=== PATIENT | female | born 1940 | race Caucasian/White ===

== ENCOUNTER 2018-01-30 13:29 | Emergency (ER) | payer MEDICARE, SELFPAY ==
--- NOTE | 2018-01-30 13:40 | ED.WEAKNESS ---
HPI - Weakness General Chief complaint: Weakness Stated complaint: Weakness Time Seen by Provider: 01/30/18 13:38 Source: patient, family, EMS and RN notes reviewed Mode of arrival: EMS Limitations: no limitations History of Present Illness HPI Narrative: Patient is a 70-year-old female presenting with increased increase in falls. She apparently fell twice yesterday and has increased weakness today. Today she said she lowered herself to the ground yesterday she did fall and hurt her right hip but she has been ambulatory. She has is a very nice cane which she refuses to use. She also has a Life Alert button which she also refuses to use. She is actually quite good spirits. She is supposed to have a sebaceous cyst removed from her left breast today infecting couple of hours. She denies any fever or chills. MD Complaint: generalized weakness Related Data Home Medications Medication Instructions Recorded Confirmed hydrochlorothiazide 50 mg PO QDAY #0 07/24/16 01/30/18 cholecalciferol (vitamin D3) 5,000 unit PO DAILY 01/22/18 01/30/18 [Vitamin D3] doxepin 25 mg PO BEDTIME 01/22/18 01/30/18 hydrocodone-acetaminophen 1 - 2 tab PO DAILY PRN 01/22/18 01/30/18 omeprazole 20 mg PO DAILY 01/22/18 01/30/18 sucralfate 1 g PO QID 01/22/18 01/30/18 fluticasone 1 spray INTRANASAL DAILY 01/30/18 01/30/18 latanoprost 1 drp OPHTHALMIC (EYE) BEDTIME 01/30/18 01/30/18 levothyroxine 100 mcg PO DAILY 01/30/18 01/30/18 meclizine 25 mg PO Q8H PRN 01/30/18 01/30/18 meloxicam 1 tab PO DAILY 01/30/18 01/30/18 mirtazapine 1 tab PO BEDTIME 01/30/18 01/30/18 ondansetron HCl 8 mg PO Q8H PRN 01/30/18 01/30/18 trazodone 100 mg PO BEDTIME PRN 01/30/18 01/30/18 Allergies Allergy/AdvReac Type Severity Reaction Status Date / Time No Known Drug Allergies Allergy Verified 01/30/18 16:08 Review of Systems Review of Systems All systems reviewed & are unremarkable except as noted in HPI and below Constitutional Denies chills, Reports fatigue, Denies fever(s), Reports frequent falls, Denies lethargy and Denies weakness Cardiovascular Denies chest pain, Denies irregular heart rhythm, Denies lightheadedness, Denies palpitations, Denies dyspnea, Denies dyspnea on exertion and Denies orthopnea Respiratory Denies cough, Denies dyspnea, Denies dyspnea on exertion and Denies wheezing Gastrointestinal Gastrointestinal: Denies abdominal pain, Denies change in bowel habits, Denies diarrhea, Denies nausea and Denies vomiting Genitourinary Denies hematuria, Denies flank pain, Denies urinary incontinence and Denies urinary urgency Musculoskeletal Reports system reviewed and no additional complaints, except as docu, Reports as per HPI, Denies back pain, Denies muscle weakness, Denies numbness and Denies tingling Neurologic Reports frequent falls, Denies numbness, Denies tingling and Denies weakness Endocrine Reports fatigue and Denies palpitations Allergic/Immunologic Denies wheezing PFSH Medical History Anxiety (Acute) Bakers cyst (Acute) Bruises easily (Acute) History of UTI (Acute) Hypothyroid (Acute) Impaired vision (Acute) Spinal stenosis (Acute) Surgical History History of colonoscopy (Acute) History of esophagogastroduodenoscopy (EGD) (Acute) Status post breast lumpectomy Status post hysterectomy with oophorectomy Family History Sister Age: 75 Osteoporosis Social History household members: none Smoking Status: Never smoker alcohol intake: current Exam Initial Vital Signs Initial Vital Signs: Vital Signs Temperature 97.8 F 01/30/18 13:56 Pulse Rate 84 01/30/18 13:56 Respiratory Rate 15 01/30/18 13:56 Blood Pressure 145/69 H 01/30/18 13:56 Pulse Oximetry 94 01/30/18 13:56 Const General: cooperative and healthy appearing Nutritional Appearance: average body habitus Orientation: alert, awake and oriented x3 HENMT Head: normal to inspection, normocephalic and atraumatic Ears: hearing grossly normal bilaterally Nose: external nose normal Face and sinus: normal facial exam Neck Neck: full ROM and no meningeal signs Chest Breast inspection: abnormal inspection of the breast (Sebaceous cyst noted on the left breast) Resp Effort & Inspection: normal respiratory effort, able to speak in complete sentences, no respiratory distress and no use of accessory muscles Auscultation: clear to auscultation bilaterally, no rales, no rhonchi and no wheezes Cardio Rate: regular rate Rhythm: regular rhythm Heart Sounds: no click, no gallops, no murmurs and no rubs Pulses: normal peripheral pulses GI Inspection: non-distended Palpation: soft, no hepatosplenomegaly, No guarding, No pulsatile mass and No tender Auscultation: normal bowel sounds Back/Spine/Pelvis Back: No CVA tenderness Cervical Spine: cervical ROM normal and No pain with cervical ROM Thoracic/Lumbar Spine: thoracic and lumbar spine normal to inspection Extrem Right upper extremity: normal to inspection Left upper extremity: normal to inspection Right lower extremity: normal to inspection, normal capillary refill and hip/thigh Details: tenderness Location: of the hip Location: laterally; no ecchymosis and no crepitus; no cyanosis, no edema and joint enlargement noted Left lower extremity: normal to inspection MDM - Weakness Lab Data Result diagrams: 01/30/18 14:10 01/30/18 14:10 Lab Results 01/30/18 01/30/18 Range/Units 14:10 14:10 WBC 11.3 H (4.5-11.0) X10^3/uL RBC 4.29 (4.0-5.2) X10^6/uL Hgb 13.8 (12.0-16.0) g/dL Hct 40.3 (36-46) % MCV 94.1 (80-100) fL MCH 32.2 (26-34) PG MCHC 34.2 (30-36) % RDW 13.7 (11.6-14.8) % Plt Count 290 (150-400) X10^3/uL Neut % (Auto) 84.4 H (50-75) % Lymph % (Auto) 8.0 L (25-40) % Cache % (Auto) 6.7 (3-14) % Eos % (Auto) 0.3 L (2-4) % Baso % (Auto) 0.6 (0-2) % Neut # (Auto) 9500 H (2535-1101) /uL Sodium 136 L (137-145) mmol/L Potassium 3.3 L (3.4-5.1) mmol/L Chloride 94 L (98-107) mmol/L Carbon Dioxide 29 (22-32) mmol/L BUN 24 H (7-17) mg/dL Creatinine 0.80 (0.52-1.04) mg/dL Estimated GFR > 60.0 (>60) mL/min BUN/Creatinine Ratio 30.0 H (6-22) Glucose 101 (80-110) mg/dL Calcium 9.8 (8.4-10.2) mg/dL Total Bilirubin 0.9 (0.2-1.3) mg/dL AST 89 H (14-36) IU/L ALT 52 (9-52) IU/L Alkaline Phosphatase 64 (38-126) U/L Total Protein 7.7 (6.3-8.2) g/dL Albumin 4.4 (3.5-5.0) g/dL Globulin 3.3 (1.7-4.1) g/dL Albumin/Globulin Ratio 1.3 (1.0-2.8) Imaging Data Right hip x-ray: Radiologist's impression: PROCEDURE: XR HIP W PEL IF DONE RT 2V INDICATIONS: fall yesterday pain TECHNIQUE: AP pelvis with lateral view(s) of the right hip(s). COMPARISON: [facility], , PELVIS 1 OR 2 VIEWS, 03/18/2008, 12:30. FINDINGS: Bones: No fractures or dislocations. Pelvic ring appears intact. No suspicious bony lesions. Bilateral degenerative hip joint space narrowing is present. Scoliotic curvature is noted in the lower lumbar spine. Soft tissues: The visualized bowel gas pattern is normal. No suspicious soft tissue calcifications. IMPRESSION: Degenerative changes. No visualized acute fracture or dislocation. However, if clinical concern and/or pain persist, short interval imaging followup in 7-10 days is recommended, as occult injury cannot be definitively excluded. Dictated by: Kimberly Huff M.D. on 01/30/2018 at 14:11 MDM Narrative Medical decision making narrative: Arrangements have been made so that patient can go to the OR to have her sebaceous cyst removed as planned. Electrolytes are slightly low. She will likely be getting IV fluids in the OR. No sign of severe infection. Discharge Plan Departure Patient Disposition: Home, Self-Care Clinical Impression: Fall as cause of accidental injury at home as place of occurrence Discharge Date/Time: 01/30/18 15:55 Interventions: ED Discharge Assessment Last Done: 01/30/18 15:50 Instructions: How to Prevent Falls Activity Restrictions/Additional Instructions: *You have been diagnosed with falls *What to do: Use cane at all times, if you should fall and not able to get up =PUSH YOUR Life Alert button *Continue to take medications as directed *Follow up with your primary care provider in 2-3 days *Return to ER if you should have any new, worsening or concerning symptoms Prescriptions: No Action hydrochlorothiazide 50 MG tablet 50 mg PO QDAY Qty: 0 RF: 0 doxepin 25 mg Capsule 25 mg PO BEDTIME RF: 0 hydrocodone-acetaminophen 5-325 mg Tablet 1 - 2 tab PO DAILY PRN (Reason: Pain (Scale Score 1-3)) RF: 0 sucralfate 1 gram Tablet 1 g PO QID RF: 0 omeprazole 20 mg Capsule,Delayed Release(Dr/Ec) 20 mg PO DAILY RF: 0 cholecalciferol (vitamin D3) [Vitamin D3] 5,000 unit Tablet 5,000 unit PO DAILY RF: 0 ondansetron HCl 8 mg tablet 8 mg PO Q8H PRN (Reason: Nausea) RF: 0 meclizine 25 mg Tablet 25 mg PO Q8H PRN (Reason: Dizziness) RF: 0 latanoprost 0.005 % drops 1 drp ophthalmic (eye) BEDTIME RF: 0 trazodone 50 mg tablet 100 mg PO BEDTIME PRN (Reason: Sleep) RF: 0 meloxicam 7.5 mg tablet 1 tab PO DAILY RF: 0 levothyroxine 100 mcg tablet 100 mcg PO DAILY RF: 0 mirtazapine 30 mg tablet 1 tab PO BEDTIME RF: 0 fluticasone 50 mcg/actuation spray,suspension 1 spray Intranasal DAILY RF: 0 Referrals: Easton Torres MD [Primary Care Provider] -
[2018-01-30 13:56] VITALS: BP 145/69; PULSE 84; RESP 15; TEMP 36.6; O2SAT 94; BMI 32.8
[2018-01-30 14:30] LABS: Alanine Aminotransferase 52 IU/L (9-52); Albumin 4.4 g/dL (3.5-5.0); Albumin Globulin Ratio 1.3 (1.0-2.8); Alkaline Phosphatase 64 U/L (38-126); Aspartate Aminotransferase 89 IU/L (14-36); Bilirubin Total 0.9 mg/dL (0.2-1.3); Blood Urea Nitrogen 24 mg/dL (7-17); Calcium 9.8 mg/dL (8.4-10.2); Carbon Dioxide 29 mmol/L (22-32); Chloride 94 mmol/L (98-107); Estimated Glomerular Filt Rate > 60.0 mL/min (>60); Globulin 3.3 g/dL (1.7-4.1); Glucose 101 mg/dL (80-110); HEMOLYSIS < 15 (0-50); Potassium 3.3 mmol/L (3.4-5.1); Sodium 136 mmol/L (137-145); Total Protein 7.7 g/dL (6.3-8.2)
[2018-01-30 14:34] LABS: Add Manual Diff / Slide Review NO; Basophils Percent Auto 0.6 % (0-2); Eosinophils Percent Auto 0.3 % (2-4); Hematocrit 40.3 % (36-46); Hemoglobin 13.8 g/dL (12.0-16.0); Mean Corpuscular HGB Conc 34.2 % (30-36); Mean Corpuscular Hemoglobin 32.2 PG (26-34); Mean Corpuscular Volume 94.1 fL (80-100); Monocytes Percent Auto 6.7 % (3-14); Neutrophils Absolute Auto 9500 /uL (3000-5900); Neutrophils Percent Auto 84.4 % (50-75); Platelet Count 290 X10^3/uL (150-400); Red Blood Cell Count 4.29 X10^6/uL (4.0-5.2); Red Cell Distribution Width 13.7 % (11.6-14.8); White Blood Cell Count 11.3 X10^3/uL (4.5-11.0)
[2018-01-30 15:07] VITALS: BP 106/90; PULSE 78; RESP 15; O2SAT 95
[2018-01-30 15:50] VITALS: BP 136/65; PULSE 87; RESP 15; O2SAT 97
== END 2018-01-30 15:55 | disposition home or self-care (01) ==
PROVIDERS: Emergency Provider Emergency Medicine; PCP Family Medicine
DX: R53.1 Weakness (principal)
CPT/HCPCS: 36591; 73502; 80053; 85025; 93005; 99282

== ENCOUNTER 2018-01-31 10:22 | Inpatient (IN) | payer MEDICARE, SELFPAY ==
[2018-01-22 17:11] VITALS: BMI 32.1
[2018-01-30] VITALS (13 sets, daily range): BP systolic 123–172; BP diastolic 67–90; PULSE 81–91; RESP 12–20; TEMP 36.3–37.4; O2SAT 94–99; BMI 32.1
--- NOTE | 2018-01-30 | PATH_ITS ---
[facility] Accession Number: [id number] . 01 Material submitted: . LEFT BREAST CYST . 01 Clinical history: . HX OF LEFT BREAST CANCER AND RADIATION . 02 Diagnosis: Left Breast Cyst, Excision: Skin with no significant diagnostic abnormality. Submucosal fibrous tissue with patchy ossification and associated abscess. Changes consistent with previous instrumentation are present. Foreign body material present. Negative for atypia or malignancy; negative for atypical epithelial cells by immunohistochemistry studies. . . [facility]/02/06/2018 . 02 Electronically signed: . Myla Lozano MD, Pathologist NPI- [id number] . 01 Gross description: . Received in formalin, labeled left breast cyst, is an unoriented piece of frazier-yellow firm adipose tissue (10.5 x 5.5 x 3.2 cm) with overlying skin (6.5 x 3.9 cm). The skin is irregularly firm and ulcerated (1.2 x 1.1 cm) located 1.2 cm from the closest peripheral resection margin. The underlying tissue is fatty and focally hard and mineralized. The resection margin is inked black. Four bisected full thickness sections submitted. ([id number]) /[facility] . 02 Microscopic: . A. An immunohistochemical stain was performed on block A5 to evaluate for CHAPARRITA, and is negative. . The rare atypical stromal cells are immunonegative for CHAPARRITA, consistent with a reactive, non-epithelial origin. . * This test was developed and its performance characteristics determined by [facility]. It has not been cleared or approved by the U.S. Food and Drug Administration. The FDA has determined that such clearance or approval is not necessary. This test is used for clinical purposes. It should not be regarded as investigational or for research. . 02 Pathologist provided ICD-10: Z85.3 . 02 CPT . 161125, N70325 Performed at: 01 [facility] [address] [place] [address], [place], [place] [id number] MD Garfield Sanchez MD Phone: [phone] Performed at: 02 [facility] [place] [address] [place], [place] [id number] MD Mich Rodrigues MD Phone: [phone]
[2018-01-30] MEDS: LACTATED RINGERS 1,000 ML 200 ML IV (16:36)
--- NOTE | 2018-01-30 18:26 | PM.PREOP ---
Pre-operative Note Interval Note Pre-op Check: History & Physical Reviewed by Physician and Exam Performed H&P completed within 30 days and has changed as indicated here:: Fell yesterday and has back pain across her lower back. She is known to have chronic back pain. She also has developed redness and drainage around the sebaceous cyst in the left breast. She is desperate to have it removed. I told her that I probably could not close it. Because she 8 lunch we have had to wait 6 hr before proceeding. No other changes.
[2018-01-30] MEDS: CEFAZOLIN 2 GM/100 ML FROZ.PIGGY IV (18:40)
[2018-01-30] MEDS: MIDAZOLAM 2 MG/2 ML VIAL IV ×2 (19:43→19:48)
--- NOTE | 2018-01-30 19:59 | P.OP_ITS ---
Operative Date/Time/Diagnoses - Date of procedure: 01/30/18 Time of procedure: 19:54 Pre-op diagnosis: Large inflamed sebaceous cyst chronic left breast. History of breast cancer Post-op diagnosis: same Procedure & Clinicians Procedure: Removal of this very large inflamed cyst with closure over drain.( lumpectomy) Same procedure as scheduled: Yes Indications: Large neglected cyst on the breast. Skin has become inflamed at the edge of the opening. Surgeon: Carlin Mclean Click Yes if Unassisted: Yes Anesthesia Type: General Operative Notes Findings: Very large cyst with an extension inferiorly that led deep to the breast almost to the muscle chest wall Closure Type: primary (Over a drain) Specimen(s): other (Large cyst) Implants & Drains: 19 mm Darrick Estimated Blood Loss (mL): 15 Blood products transfused: none Procedure in detail: The patient was placed supine on the operating table underwent general LMA anesthesia. She was prepped and draped in the usual fashion using Betadine. An incision was made around this very large inflamed cyst in normal appearing tissue. Was carried deep to the cyst which was quite significant. In the inferior aspect of this wound the cyst cavity actually dive very deep almost to the chest wall. All of this was excised and submitted. Hemostasis was achieved with cautery and 3 0 Polysorb suture ligatures. The wound was copiously irrigated. I loosely closed the skin using large vertical mattress nylon sutures over a Darrick drain which was left in the deep section of this biopsy cavity. It was brought out through the wound. This was done because the patient is incapable managing the wound and lives alone. While we hope to find a way to place her or get assistance, there is no acute that that would happen this is a risky procedure because of the inflammation but I think stands probably a 3/4 chance of succeeding. We will continue antibiotics postop. A dressing was applied the patient tolerated the procedure well. She is awakened and taken to the recovery area in good condition. Complications: none Condition: stable Disposition: PACU
--- NOTE | 2018-01-30 21:17 | PC.NURSE ---
post op pt to AC from PACU around 1999. VSS PT alert and oriented. post left breast cyst removal. Surgical dressing C,D,I with NAYELY drain compressed. Breast binder placed at bedside by OR nurses. Pt able to void to bedpan. Reports recent falls at home and was brought into ER today after family found her down unconscious. IVF infusing per orders. pt denies pain/discomfort. tolerating jello and water and refusing want for further PO intake. Bed alarm on and call light encouraged for needs.
[2018-01-30] MEDS: DEXTROSE 5%-0.45% NS 1,000 ML 125 ML IV (21:38)
[2018-01-30] MEDS: GABAPENTIN 300 MG CAPSULE PO (21:39)
[2018-01-30] MEDS: LATANOPROST 0.005% OPHTH 2.5 ML 1 DROPS EYE-BOTH (21:40)
[2018-01-30] MEDS: DOXEPIN 25 MG CAPSULE PO (21:40)
[2018-01-30] MEDS: MIRTAZAPINE 15 MG TABLET 30 MG PO (21:41)
[2018-01-31] VITALS (10 sets, daily range): BP systolic 106–147; BP diastolic 59–82; PULSE 75–89; RESP 16–18; TEMP 35.8–36.7; O2SAT 93–98
--- NOTE | 2018-01-31 | DI.MRI.S_ITS ---
PROCEDURE: MR HIP RT WO CON INDICATIONS: Right hip/groin pain post fall TECHNIQUE: Noncontrast coronal T1 spin echo and STIR through the bony pelvis. Coronal and axial T2 fast spin echo with fat saturation, sagittal T1 spin echo, and oblique axial T2 fast spin echo with fat saturation through the hip. COMPARISON: [facility], CR, XR HIP W PEL IF DONE RT 2V, 01/30/2018, 13:23. [facility], CT, ABDOMEN/PELVIS WITH CONTRAST, 10/10/2016, 11:16. FINDINGS: Image quality: Diagnostic. Bones and joints: There is no acute fracture, dislocation, suspicious osseous lesion, or evidence of avascular necrosis involving the right hip. Marrow edema is evident, however, involving the superior pubic ramus with an associated nondisplaced fracture evident. A similar appearance is noted involving the inferior pubic ramus, as well. There is no widening of the pubis symphysis. Edema is evident within the adjacent soft tissues. There also is edema evident involving the right aspect of the sacral ala with probable microtrabecular fracture lines present. There mild degenerative changes of the right hip. Degenerative changes of the included lower lumbar spine, sacroiliac joints, and left hip are noted. There is a small right hip joint effusion. Tendons and ligaments: There is slight increased signal identified involving the distal gluteus medius and gluteus minimus tendons without significant tearing evident. Fluid is contained within the greater trochanteric bursa. The distal iliopsoas tendons are intact. The proximal hamstrings tendons demonstrate slight increased signal. There is diffuse muscle edema identified involving all of the adductor muscles. There also appears to be edema involving the right piriformis muscles and the distal margins of the gluteus medius and gluteus minimus muscles. The ligamentum teres appears intact where visualized. Labrum: Evaluation of the acetabular labrum is difficult without intra-articular contrast. However, there is increased signal identified at the labral cartilaginous junction of the superior labrum, suggesting a small anterosuperior labral tear. Soft tissues: Visualized muscles demonstrate normal bulk and internal signal. Quadratus femoris muscle demonstrates no internal edema to suggest ischiofemoral impingement. The proximal sciatic neurovascular bundle appears normal adjacent to the hamstring tendons. No free pelvic fluid. Bladder wall thickness is normal. Genitourinary structures and bowel loops appear normal where visualized. IMPRESSION: 1. No acute right hip fracture. 2. Nondisplaced superior and inferior right pubic rami fractures. 3. Right sacral insufficiency fracture. 4. Adductor muscle edema is felt to be reactive. 5. Small anterosuperior right acetabular labral tear. 6. Small right hip joint effusion. 7. Mild distal gluteus medius and gluteus minimus tendinopathy. Moderate amount of fluid is contained within the greater trochanteric bursa. Please correlate clinically for possible bursitis. 8. Mild proximal right hamstrings tendinopathy. Dictated by: Cory Armendariz M.D. on 01/31/2018 at 14:12 Approved by: Cory Armendariz M.D. on 01/31/2018 at 14:24
--- NOTE | 2018-01-31 | DI.RAD.S_ITS ---
PROCEDURE: XR LUMBAR SPINE 2-3V INDICATIONS: 78 year-old female with chronic low back pain, with increased low back pain after recent fall. TECHNIQUE: 3 views of the lumbar spine were acquired. COMPARISON: [facility], , L-SPINE WITHOUT CONTRAST, 12/29/2015, 10:54. [facility], CR, SPINE LUMB MIN 4VW, 12/20/2015, 12:18. [facility], LEANDRO, SPINE LUMB MIN 4VW, 04/06/2014, 11:01. FINDINGS: Bones: 6 met-flw-vqoiyrz vertebrae are present, labeled as T12-L5 to be concordant with sleeping on comparison lumbar spine MRI. There is multilevel lumbar spine disc degeneration as before, as well as levoscoliosis. There is grade 1 L5-S1 spondylolisthesis from bilateral L5 pars defects is better seen on MRI. No vertebral body compression fractures. No suspicious bony lesions. Soft tissues: Overlying bowel gas pattern is normal. No suspicious soft tissue calcifications. IMPRESSION: 1. No acute bony injury to the lumbar spine. 2. Transitional lumbar spine anatomy, with 6 non-rib bearing lumbar type vertebrae, labeled as T12 through L5 to be concordant with comparison MRI labeling. If definitive spinal labeling is needed in the future, recommend correlation with thoracic spine radiographs to count down from T1. 3. Multilevel lumbar spine disc degeneration, along with levoscoliosis. 4. Grade 1 L5-S1 spondylolisthesis from bilateral L5 pars defects. Dictated by: Jefferson Bertrand M.D. on 01/31/2018 at 11:11 Approved by: Jefferson Bertrand M.D. on 01/31/2018 at 11:16
[2018-01-31] MEDS: TRAZODONE 100 MG TABLET PO ×2 (00:06→22:50)
[2018-01-31] MEDS: CEFAZOLIN 2 GM/100 ML FROZ.PIGGY IV ×3 (03:23→20:49)
[2018-01-31] MEDS: DEXTROSE 5%-0.45% NS 1,000 ML 125 ML IV ×2 (05:52→16:00)
[2018-01-31 06:28] LABS: Add Manual Diff / Slide Review NO; Basophils Percent Auto 0.8 % (0-2); Eosinophils Percent Auto 2.9 % (2-4); Hematocrit 36.7 % (36-46); Hemoglobin 12.6 g/dL (12.0-16.0); Mean Corpuscular HGB Conc 34.2 % (30-36); Mean Corpuscular Hemoglobin 32.4 PG (26-34); Mean Corpuscular Volume 94.7 fL (80-100); Monocytes Percent Auto 8.1 % (3-14); Neutrophils Absolute Auto 7100 /uL (3000-5900); Neutrophils Percent Auto 78.2 % (50-75); Platelet Count 231 X10^3/uL (150-400); Red Blood Cell Count 3.88 X10^6/uL (4.0-5.2); Red Cell Distribution Width 13.6 % (11.6-14.8); White Blood Cell Count 9.1 X10^3/uL (4.5-11.0)
[2018-01-31] MEDS: LEVOTHYROXINE 100 MCG TABLET PO (06:42)
[2018-01-31] MEDS: OXYCODONE/ACETAMINOPHEN 5/325 TABLET 2 TAB PO ×2 (06:42→15:56)
--- NOTE | 2018-01-31 07:00 | PC.NURSE ---
Addendum entered by Ariela Miles R.N. 01/31/18 07:35: NAYELY drain had zero output. Original Note: Pt denies pain on surgical site. she is however c/o R. hip pain from her recent fall. call light in reach. bed alarm active. 2 tabs of percocet for r. hip pain.
[2018-01-31] MEDS: ONDANSETRON 4 MG ODT 8 MG PO (09:11)
[2018-01-31] MEDS: PANTOPRAZOLE 40 MG TABLET PO (10:05)
[2018-01-31] MEDS: ENOXAPARIN 40 MG/0.4 ML SYRINGE SUBCUT (10:05)
[2018-01-31] MEDS: MELOXICAM 7.5 MG TABLET PO (10:05)
[2018-01-31] MEDS: hydroCHLOROthiazide 25 MG TABLET 50 MG PO (10:05)
[2018-01-31] MEDS: GABAPENTIN 300 MG CAPSULE PO ×2 (10:05→20:50)
--- NOTE | 2018-01-31 10:23 | PC.NURSE ---
Addendum entered by Jerrell Finley R.N. 01/31/18 11:56: Pt has had difficulty voiding this shift. Bladder scan of 506ml at 0953, she was eventually able to void 350 with some unmeasured on linens. Post void of 282ml at 1150. Original Note: Fluids stopped for ordered imaging.
--- NOTE | 2018-01-31 12:35 | PT.IIE ---
Current Diagnoses Sebaceous cyst (01/31/18) Other benign mammary dysplasias of left breast (01/31/18) Surgery Performed Operation Date: 01/30/18 15:15 Actual Procedures p Excision Breast Cyst(Left) - Carlin Mclean MD Surgical History (Last Updated 01/22/18 @ 17:17 by Minnie Ureña, RN) History of colonoscopy (Acute) History of esophagogastroduodenoscopy (EGD) (Acute) Status post breast lumpectomy Status post hysterectomy with oophorectomy Medical History (Last Updated 01/22/18 @ 17:18 by Minnie Ureña, RN) Anxiety (Acute) Bakers cyst (Acute) Bruises easily (Acute) History of UTI (Acute) Hypothyroid (Acute) Impaired vision (Acute) Spinal stenosis (Acute) Physical Therapy Inpatient Evaluation/Re-Eval M1 PT/OT-IP Prior Functional Status Start: 01/31/18 12:22 Freq: NEEDED Status: Active Protocol: Document 01/31/18 12:23 AB (Rec: 01/31/18 12:35 AB [email or web address]) Medical Review Prior Functional Status Medical History Reviewed Yes Mobility and Gait pt stated that she is modified independent withh all mobilities and ambulation without AD but occasionally uses a SPC. Social History Household Members none Living Arrangements House Number of Floors (Floors) Two Floors Number of Stairs To Enter/Railing? 3 steps to enter with bilateral wide rails and can only hold on to one rail at a time; has 7 steps L rail ascending + landing+7 steps with L rail ascending to get to bedroom level Home Environment Standard Height Toilet Tub/Shower Home Equipment Straight Cane Grab Bars In Shower Employment Status Retired Additional Social History Comment pt stated that she takes baths and does not like to do showers. Daughter stated that pt can stay at her house for ~ 2days but she cannot take care of her. M2 PT-IP Current Condition Start: 01/31/18 12:22 Freq: NEEDED Status: Active Protocol: Document 01/31/18 12:23 AB (Rec: 01/31/18 12:35 AB [email or web address]) Physical Therapy Current Condition Current Condition Evaluation Date 01/31/18 Treatment Diagnosis s/p L lumpectomy Onset Date 01/30/18 M3 PT-IP Subjective Start: 01/31/18 12:22 Freq: NEEDED Status: Active Protocol: Document 01/31/18 12:23 AB (Rec: 01/31/18 12:35 AB [email or web address]) Subjective Physical Therapy Visit Type Type Initial Evaluation Visit Start Time 11:45 Visit Stop Time 12:26 Total Visit Minutes 41 Number of AIRPORT PLANNER Visits 0 Physical Therapy Visit Comments Patient Comments pt hesistant to get out of bed but agreed to try Therapy Pain Assessment Pain When Pain Assessed During Mobility Pain Present Pain Present Pain Reported Location Right Groin Intensity 8 Scale Used Numeric (1 - 10) M4 PT-IP Mobility and Gait Start: 01/31/18 12:22 Freq: NEEDED Status: Active Protocol: Document 01/31/18 12:23 AB (Rec: 01/31/18 12:35 AB [email or web address]) PT-Bed Mobility Assessment Rolling Level of Assist Maximal Assistance 1 Person Assistance 2 Person Assistance PT-Transfer Assessment Sit to and From Stand Sit to and from Stand Maximum Assistance 1 Person Assistance 2 Person Assistance Equipment Transfer Assistive Device Gait Belt Front Wheeled Walker Orthotic/Prosthetic Devices or Brace: No Transfers Transfer Destination Chair Transfer Technique Stand Pivot Transfer Ability Level of Assist Maximum Assistance 1 Person Assistance Comments Mobility Comments pt c/o R groin pain during mobility affecting transfers. pt unable to bring R LE up and just pivoted to transfer with max A and max cues using FWW. Gait Assessment Comments Gait Comments unable to ambulate at this time PT-Balance Assessment Sitting Balance and Reactions Static Sitting Balance Ability Fair Dynamic Sitting Balance Ability Fair Standing Balance and Reactions Static Standing Balance Ability Poor Dynamic Standing Balance Ability Poor M5 PT-IP Objective Assessments Start: 01/31/18 12:22 Freq: NEEDED Status: Active Protocol: Document 01/31/18 12:23 AB (Rec: 01/31/18 12:35 AB [email or web address]) Orientation Orientation/Cognition Level of Alertness Alert Orientation Name Age Birthday Month Date Year Day of Week Place Situation Safety Awareness Decreased Safety Awareness Gross Range of Motion Lower Extremity ROM Assessment Within Functional Limits Strength Lower Extremity Strength Assessment Bilaterally Impaired Comments Strength Comments RLE weaker than LLE: 4-/5 LLE : 4/5 M6 PT-IP Treatment Start: 01/31/18 12:22 Freq: NEEDED Status: Active Protocol: Document 01/31/18 12:23 AB (Rec: 01/31/18 12:35 AB [email or web address]) Physical Therapy Treatment Education Education Provided Safety M7 PT-IP Assessment and Plan Start: 01/31/18 12:22 Freq: NEEDED Status: Active Protocol: Document 01/31/18 12:23 AB (Rec: 01/31/18 12:35 AB [email or web address]) PT Summary Assessment and Plan Potential Rehabilitation Potential Fair Status of Condition at Evaluation Evolving Summary Impairments Pain ROM Strength Balance Cognition Bed Mobility Transfers Gait Activity Tolerance Assessment Summary pt requiring max A x 2 for mobility and has decreas activity tolerance affecting function. pt unable to ambulate at this time. pt will require SNF rehab to improve strength and mobility. Goals Bed Mobility Goal Contact Guard Assistance Transfer Goal Contact Guard Assistance Gait Goal Contact Guard Assistance Gait Distance 100 Other Goals up/down 15 steps with L rail ascending. Days to Meet Goals 3 Frequency of Treatment Frequency Of Treatment Twice a Day Treatment Plan Physical Therapy Treatment Plan Bed Mobility Training Transfer Training Gait Training Therapeutic Exercise Balance Retraining Post Op Education Discharge Planning Hot or Cold Pack Neuromuscular Re-ed Coordination Retraining Manual Therapy Recommendations To Nursing Amount of Assist Needed 2 Person Assist Discharge Recommendations PT Discharge Recommendations SNF Rehab Equipment Needed for Home Before FWW: depending on progress Discharge Provider Visit Care Team Role Provider Type Easton Torres MD Family Provider Physician Primary Care Provider Specialty: Family Practice Carlin Mclean MD Admit Provider Physician Attending Provider Specialty: General Surgery
--- NOTE | 2018-01-31 13:45 | PT.IPTN ---
Current Diagnoses Sebaceous cyst (01/31/18) Other benign mammary dysplasias of left breast (01/31/18) Surgery Performed Operation Date: 01/30/18 15:15 Actual Procedures p Excision Breast Cyst(Left) - Carlin Mclean MD Physical Therapy Treatment Note M2 PT-IP Current Condition Start: 01/31/18 12:22 Freq: NEEDED Status: Active Protocol: Document 01/31/18 15:14 AB (Rec: 01/31/18 15:23 AB [email or web address]) Physical Therapy Current Condition Current Condition Evaluation Date 01/31/18 Treatment Diagnosis s/p L lumpectomy Onset Date 01/30/18 Weight Bearing Status Weight Bearing Status Non-Weight Bearing Allowed Weight Bearing Amount (enter % pt seen for PT eval this or #) (%) morning. spoke with lead case manager regarding SNF recommendation this morning. lead case manager informed PT ~2pm that pt was seen by Dr. Proctor for R hip pain and MRI was ordered. Checked for MRI result and no result as of this time. Read Dr. Proctor 's consultation note ~310 pm and per documentation: At this time she should be nonweightbearing on the right lower extremity until advanced imaging is reviewed. M3 PT-IP Subjective Start: 01/31/18 12:22 Freq: NEEDED Status: Active Protocol: Document 01/31/18 12:23 AB (Rec: 01/31/18 12:35 AB [email or web address]) Subjective Physical Therapy Visit Type Type Initial Evaluation Visit Start Time 11:45 Visit Stop Time 12:26 Total Visit Minutes 41 Number of OPERATING ROOM SURGICAL TECHNICIAN Visits 0 Physical Therapy Visit Comments Patient Comments pt hesistant to get out of bed but agreed to try Therapy Pain Assessment Pain When Pain Assessed During Mobility Pain Present Pain Present Pain Reported Location Right Groin Intensity 8 Scale Used Numeric (1 - 10) M4 PT-IP Mobility and Gait Start: 01/31/18 12:22 Freq: NEEDED Status: Active Protocol: Document 01/31/18 12:23 AB (Rec: 01/31/18 12:35 AB [email or web address]) PT-Bed Mobility Assessment Rolling Level of Assist Maximal Assistance 1 Person Assistance 2 Person Assistance PT-Transfer Assessment Sit to and From Stand Sit to and from Stand Maximum Assistance 1 Person Assistance 2 Person Assistance Equipment Transfer Assistive Device Gait Belt Front Wheeled Walker Orthotic/Prosthetic Devices or Brace: No Transfers Transfer Destination Chair Transfer Technique Stand Pivot Transfer Ability Level of Assist Maximum Assistance 1 Person Assistance Comments Mobility Comments pt c/o R groin pain during mobility affecting transfers. pt unable to bring R LE up and just pivoted to transfer with max A and max cues using FWW. Gait Assessment Comments Gait Comments unable to ambulate at this time PT-Balance Assessment Sitting Balance and Reactions Static Sitting Balance Ability Fair Dynamic Sitting Balance Ability Fair Standing Balance and Reactions Static Standing Balance Ability Poor Dynamic Standing Balance Ability Poor M5 PT-IP Objective Assessments Start: 01/31/18 12:22 Freq: NEEDED Status: Active Protocol: Document 01/31/18 12:23 AB (Rec: 01/31/18 12:35 AB [email or web address]) Orientation Orientation/Cognition Level of Alertness Alert Orientation Name Age Birthday Month Date Year Day of Week Place Situation Safety Awareness Decreased Safety Awareness Gross Range of Motion Lower Extremity ROM Assessment Within Functional Limits Strength Lower Extremity Strength Assessment Bilaterally Impaired Comments Strength Comments RLE weaker than LLE: 4-/5 LLE : 4/5 M6 PT-IP Treatment Start: 01/31/18 12:22 Freq: NEEDED Status: Active Protocol: Document 01/31/18 12:23 AB (Rec: 01/31/18 12:35 AB [email or web address]) Physical Therapy Treatment Education Education Provided Safety M7 PT-IP Assessment and Plan Start: 01/31/18 12:22 Freq: NEEDED Status: Active Protocol: Document 01/31/18 12:23 AB (Rec: 01/31/18 12:35 AB [email or web address]) PT Summary Assessment and Plan Potential Rehabilitation Potential Fair Status of Condition at Evaluation Evolving Summary Impairments Pain ROM Strength Balance Cognition Bed Mobility Transfers Gait Activity Tolerance Assessment Summary pt requiring max A x 2 for mobility and has decreas activity tolerance affecting function. pt unable to ambulate at this time. pt will require SNF rehab to improve strength and mobility. Goals Bed Mobility Goal Contact Guard Assistance Transfer Goal Contact Guard Assistance Gait Goal Contact Guard Assistance Gait Distance 100 Other Goals up/down 15 steps with L rail ascending. Days to Meet Goals 3 Frequency of Treatment Frequency Of Treatment Twice a Day Treatment Plan Physical Therapy Treatment Plan Bed Mobility Training Transfer Training Gait Training Therapeutic Exercise Balance Retraining Post Op Education Discharge Planning Hot or Cold Pack Neuromuscular Re-ed Coordination Retraining Manual Therapy Recommendations To Nursing Amount of Assist Needed 2 Person Assist Discharge Recommendations PT Discharge Recommendations SNF Rehab Equipment Needed for Home Before FWW: depending on progress Discharge
--- NOTE | 2018-01-31 13:56 | P.CONS_ITS ---
History of Present Illness Date Patient Seen: 01/31/18 Time Patient Seen: 13:35 Chief complaint: excision left breast Reason for consult: Two recent falls at home unable to ambulate complaining of right hip pain Requesting provider: Carlin Mclean Narrative: She states that she fell 3 days ago while walking outside to deliver a letter to her neighbor. She is unsure why she fell. She denies a loss of conscious and states she looked around for which she may have tripped over but did not find any thing. She is a community ambulator without assistive devices. She does have a cane--but never uses it. She had a recent DEXA scan of her lumbar spine that was within normal limits. She takes 5000 units of vitamin-D daily. She has a history of spinal stenosis, and lumbar arthritis. She denies any heart or lung problems. She is not on any blood thinners. She does not smoke or use tobacco products. Location: Right hip--groin pain and pain on the outside of the hip Quality: Aching Severity: Moderate unable to ambulate without assist, but pain well controlled at rest sitting in a chair or bed Duration: 3 days Contact: The patient had 2 falls: The 1st was 3 days ago walking outside to deliver a letter. She crawled back inside, and fell again trying to get up a stair. She then got into bed for the rest of the day. Her daughter picked her up and brought her to her house the next day, but had to assist her walking to the car. She has not ambulated independently since the 1st fall. She was brought to the emergency room last night and unable to ambulate. X-rays were taken of the patient's lumbar spine and right hip that did not show an obvious fracture. She was then brought to the operating room for a previously scheduled breast biopsy/cyst excision. She was admitted after the surgery, and given her continued right hip pain and inability to ambulate orthopedic surgery was consulted. The patient denies any previous injury to the hip. She does have a history of spinal stenosis. He has no history of diabetes. [facility] Medical History Anxiety (Acute) Bakers cyst (Acute) Bruises easily (Acute) History of UTI (Acute) Hypothyroid (Acute) Impaired vision (Acute) Spinal stenosis (Acute) Surgical History History of colonoscopy (Acute) History of esophagogastroduodenoscopy (EGD) (Acute) Status post breast lumpectomy Status post hysterectomy with oophorectomy Family History Sister Age: 75 Osteoporosis Social History household members: none Smoking Status: Never smoker alcohol intake: current Meds Home Medications Medication Instructions Recorded Confirmed Type hydrochlorothiazide 50 mg PO QDAY #0 07/24/16 01/30/18 History cholecalciferol (vitamin D3) 5,000 unit PO DAILY 01/22/18 01/30/18 History [Vitamin D3] doxepin 25 mg PO BEDTIME 01/22/18 01/30/18 History hydrocodone-acetaminophen 1 - 2 tab PO DAILY PRN 01/22/18 01/30/18 History omeprazole 20 mg PO DAILY 01/22/18 01/30/18 History sucralfate 1 g PO QID 01/22/18 01/30/18 History fluticasone 1 spray INTRANASAL DAILY 01/30/18 01/30/18 History latanoprost 1 drp OPHTHALMIC (EYE) BEDTIME 01/30/18 01/30/18 History levothyroxine 100 mcg PO DAILY 01/30/18 01/30/18 History meclizine 25 mg PO Q8H PRN 01/30/18 01/30/18 History meloxicam 1 tab PO DAILY 01/30/18 01/30/18 History mirtazapine 1 tab PO BEDTIME 01/30/18 01/30/18 History ondansetron HCl 8 mg PO Q8H PRN 01/30/18 01/30/18 History trazodone 100 mg PO BEDTIME PRN 01/30/18 01/30/18 History Allergies Allergy/AdvReac Type Severity Reaction Status Date / Time No Known Drug Allergies Allergy Verified 01/30/18 16:08 Review of Systems Review of Systems History of breast cancer in the hospital today after a removal of a breast cyst. Denies dizziness nausea vomiting numbness or tingling. Denies any recent loss of consciousness. All systems reviewed & are unremarkable except as noted in HPI and below Exam Vital Signs (past 8 hours): Vital Signs - 8 hr 3 01/31/18 08:30 01/31/18 09:34 01/31/18 11:55 Temperature 96.4 F L 97.2 F L Pulse Rate 78 77 Respiratory Rate 18 16 Blood Pressure 120/62 106/71 Pulse Oximetry 93 93 94 3 01/31/18 13:10 Temperature Pulse Rate Respiratory Rate Blood Pressure Pulse Oximetry 94 Pulse Oximetry 94 Oxygen Delivery Method Room Air Oxygen Flow Rate 0 Narrative Exam Narrative: Carrie is a very pleasant 78-year-old woman was seen in her hospital room with her daughter today. She is alert and oriented no acute distress. HEENT. Sitting up in the bedside chair. Breathing is nonlabored on room air, vital signs are stable. Pulse is regular. She has bandages and a drain in place from her recent breast surgery. Musculoskeletal examination: Spine: Full nontender range of motion cervical spine. No tenderness to palpation along the thoracic and lumbar spine Right lower extremity: No erythema or signs or symptoms of infection. Patient endorses groin pain and pain on the outside of her right hip. Gentle log roll with mild groin pain. Attempted active hip flexion with groin pain. 5/5 dorsiflexion plantar flexion strength. Palpable dorsalis pedis pulse. Sensation intact to light touch in the superficial peroneal deep peroneal sural and saphenous nerve distributions. No obvious edema or effusion of the knee. Left lower extremity: No erythema or signs or symptoms of infection. No pain with log roll. No pain with hip internal or external rotation. 5/5 dorsiflexion plantar flexion of the ankle. Sensation intact to light touch superficial peroneal, deep peroneal, sural, saphenous nerve distributions. Palpable dorsalis pedis pulse. Objective Labs Result Diagrams: 01/31/18 05:58 Labs: Laboratory Results - last 24 hr 01/31/18 05:58 WBC 9.1 RBC 3.88 L Hgb 12.6 Hct 36.7 MCV 94.7 MCH 32.4 MCHC 34.2 RDW 13.6 Plt Count 231 Neut % (Auto) 78.2 H Lymph % (Auto) 10.0 L [place] % (Auto) 8.1 Eos % (Auto) 2.9 Baso % (Auto) 0.8 Neut # (Auto) 7100 H Assessment & Plan Plan: Assessment/Plan Narrative: Patient is a 78-year-old female with right hip pain after a series of falls. She is a community ambulator at baseline without assistive devices and has been unable to independently ambulate since her falls. Concern is for occult right hip fracture. The patient does have significant lumbar spondylosis and spinal stenosis however she does not have any tenderness in this area appeared additional a pelvic fracture would also be in the differential diagnosis. I do not see an obvious fracture on the plain x-rays obtained however these are often difficult to identify on plain radiographs, however when nondisplaced treatment is typically weight-bearing as tolerated with assistive devices as needed. An occult hip fracture would potentially change the treatment to surgery in order to prevent displacement and facilitate ambulation. I discussed this with the patient and her daughter. Would like to order an MRI scan of the right hip to rule out an occult fracture as this is more sensitive in the acute setting. This is negative then we will proceed with CT scan of the pelvis. The patient and her daughter understand and agree with the plan. At this time she should be nonweightbearing on the right lower extremity until advanced imaging is reviewed. Time Spent With Patient Time with patient: 25 - 35 minutes
--- NOTE | 2018-01-31 15:19 | OT.IP.TRT ---
Current Diagnoses Sebaceous cyst (01/31/18) Other benign mammary dysplasias of left breast (01/31/18) Surgery Performed Operation Date: 01/30/18 15:15 Actual Procedures p Excision Breast Cyst(Left) - Carlin Mclean MD Occupational Therapy Treatment Note M3 OT- IP Subjective and Pain Start: 01/31/18 15:17 Freq: Status: Active Protocol: Document 01/31/18 15:18 [facility] (Rec: 01/31/18 15:19 [facility] [id number]) OT- Subjective Occupational Therapy Visit Type Type Patient Unavailable Notes Pt now RLE NWB until further imaging, therefore, to check on pt tomorrow for OT eval.
--- NOTE | 2018-01-31 15:23 | PT.IPTN ---
Current Diagnoses Sebaceous cyst (01/31/18) Other benign mammary dysplasias of left breast (01/31/18) Surgery Performed Operation Date: 01/30/18 15:15 Actual Procedures p Excision Breast Cyst(Left) - Carlin Mclean MD Physical Therapy Treatment Note M2 PT-IP Current Condition Start: 01/31/18 12:22 Freq: NEEDED Status: Active Protocol: Document 01/31/18 15:14 AB (Rec: 01/31/18 15:23 AB [email or web address]) Physical Therapy Current Condition Current Condition Evaluation Date 01/31/18 Treatment Diagnosis s/p L lumpectomy Onset Date 01/30/18 Weight Bearing Status Weight Bearing Status Non-Weight Bearing Allowed Weight Bearing Amount (enter % pt seen for PT eval this or #) (%) morning. spoke with case finisher regarding SNF recommendation this morning. case finisher informed PT ~2pm that pt was seen by Dr. Proctor for R hip pain and MRI was ordered. Checked for MRI result and no result as of this time. Read Dr. Proctor 's consultation note ~310 pm and per documentation: At this time she should be nonweightbearing on the right lower extremity until advanced imaging is reviewed.
--- NOTE | 2018-01-31 15:37 | CM.DANOTE ---
Addendum entered by JOSEMANUEL Alonzo 01/31/18 15:46: In addition to needing skilled PT/OT, pt will require wound care per notes. Original Note: DCP Assessment: Pt is a 78 yo female, resident of [place], [place]. Pt admitted for an excision of her left breast by Dr Mclean, and in addition, pt has had multiple recent falls, Ortho consult pending. Pt's PCP is Dr Torres; Insurance is Medicare. Spoke w/ Hien, PT. She explained that pt is requiring max assist of 2 people for sit to stand. Pt is mostly indp at her baseline. Dtr Sita told Hien away from bedside that she could not have pt staying w/her more than a few days because they do not get along well. Met w/pt and her dtr at bedside, explained role. Both reviewed the falls that pt has had at home and both this RECREATION FACILITIES SUPERVISOR and dtr question why pt will not use her lifeline button (?) Pt admits its pride that stops her. Discussed PT's recommendation for SNF and pt not agreeable at this time, says she wants to go home. This RECREATION FACILITIES SUPERVISOR was called out of the for an emergent DC and when I returned, pt was alone and reiterated I'm going home. Per review of Dr Proctor's consult note; MRI ordered in hopes an etiology can be found for pt's pain and recent falls. This RECREATION FACILITIES SUPERVISOR following closely for coordination of the safest plan that pt will be agreeable to. JOSEMANUEL Alonzo
--- NOTE | 2018-01-31 16:51 | PM.PNPO.1 ---
Subjective Date Patient Seen: 01/31/18 Time Patient Seen: 11:51 Interval history: Patient required 2 people to assist her to stand and sit in a chair. She was unable to really walk and could not weight bear use the right leg well. One daughter asked me if she thought she had a stroke. Exam Vital Signs (past 8 hours): Vital Signs - 8 hr 01/31/18 09:34 01/31/18 11:55 01/31/18 13:10 Temperature 97.2 F L Pulse Rate 77 Respiratory Rate 16 Blood Pressure 106/71 Pulse Oximetry 93 94 94 Pulse Oximetry 94 Oxygen Delivery Method Room Air Oxygen Flow Rate 0 Narrative Exam Narrative: Her breast looks fine. Drainage is bloody as would be expected. It is not purulent. There is no cellulitis. There was drainage on the dressing as expected. The patient complains of pain in the right hip and medially but she is alert as ever. She is oriented. She moves her other extremities without difficulty. Objective Labs Result Diagrams: 01/31/18 05:58 Labs: Laboratory Results - last 24 hr 01/31/18 05:58 WBC 9.1 RBC 3.88 L Hgb 12.6 Hct 36.7 MCV 94.7 MCH 32.4 MCHC 34.2 RDW 13.6 Plt Count 231 Neut % (Auto) 78.2 H Lymph % (Auto) 10.0 L [place] % (Auto) 8.1 Eos % (Auto) 2.9 Baso % (Auto) 0.8 Neut # (Auto) 7100 H Assessment & Plan Post-op (1) Sebaceous cyst of skin of left breast: Current Visit: Yes Status: Acute Assessment and plan: The site looks fine. Drain can probably be removed tomorrow. I will continue p.o. antibiotics for another 5 days, given the inflammation at operation and the depth of this wound and the prior radiation to the left breast. (2) Pubic ramus fracture: Problem details: Newly discovered related to preop/pre-admission fall at home. Current Visit: Yes Status: Acute Assessment and plan: Plan Per Dr. Proctor. Will require at least temporary assisted home placement to rehab this hip. Patient has a home with stairs and is unable to walk and lives alone. Postoperative Procedures Operation Date: 01/30/18 15:15 Actual Procedures Side Surgeon p Excision Breast Cyst Left Carlin Mclean MD Postoperative day: 1 Time Spent With Patient 25 - 35 minutes Quality VTE Deep Vein Thrombosis/Pulmonary Embolism Present on Admission: No
--- NOTE | 2018-01-31 16:59 | P.PN_ITS ---
Subjective Date Patient Seen: 01/31/18 Time Patient Seen: 11:51 Interval history: Patient required 2 people to assist her to stand and sit in a chair. She was unable to really walk and could not weight bear use the right leg well. One daughter asked me if she thought she had a stroke. Exam Vital Signs (past 8 hours): Vital Signs - 8 hr 3 01/31/18 09:34 01/31/18 11:55 01/31/18 13:10 Temperature 97.2 F L Pulse Rate 77 Respiratory Rate 16 Blood Pressure 106/71 Pulse Oximetry 93 94 94 Pulse Oximetry 94 Oxygen Delivery Method Room Air Oxygen Flow Rate 0 Narrative Exam Narrative: Her breast looks fine. Drainage is bloody as would be expected. It is not purulent. There is no cellulitis. There was drainage on the dressing as expected. The patient complains of pain in the right hip and medially but she is alert as ever. She is oriented. She moves her other extremities without difficulty. Objective Labs Result Diagrams: 01/31/18 05:58 Labs: Laboratory Results - last 24 hr 01/31/18 05:58 WBC 9.1 RBC 3.88 L Hgb 12.6 Hct 36.7 MCV 94.7 MCH 32.4 MCHC 34.2 RDW 13.6 Plt Count 231 Neut % (Auto) 78.2 H Lymph % (Auto) 10.0 L [place] % (Auto) 8.1 Eos % (Auto) 2.9 Baso % (Auto) 0.8 Neut # (Auto) 7100 H Assessment & Plan Post-op (1) Sebaceous cyst of skin of left breast: Current Visit: Yes Status: Acute Assessment and plan: The site looks fine. Drain can probably be removed tomorrow. I will continue p.o. antibiotics for another 5 days, given the inflammation at operation and the depth of this wound and the prior radiation to the left breast. (2) Pubic ramus fracture: Problem details: Newly discovered related to preop/pre-admission fall at home. Current Visit: Yes Status: Acute Assessment and plan: Plan Per Dr. Proctor. Will require at least temporary longterm home placement to rehab this hip. Patient has a home with stairs and is unable to walk and lives alone. Postoperative Procedures Operation Date: 01/30/18 15:15 Actual Procedures Side Surgeon p Excision Breast Cyst Left Carlin Mclean MD Postoperative day: 1 Time Spent With Patient 25 - 35 minutes Quality VTE Deep Vein Thrombosis/Pulmonary Embolism Present on Admission: No
[2018-01-31 19:03] LABS: Blood Urea Nitrogen 13 mg/dL (7-17); Calcium 8.6 mg/dL (8.4-10.2); Carbon Dioxide 30 mmol/L (22-32); Chloride 94 mmol/L (98-107); Estimated Glomerular Filt Rate > 60.0 mL/min (>60); Glucose 135 mg/dL (80-110); HEMOLYSIS < 15 (0-50); Potassium 3.1 mmol/L (3.4-5.1); Sodium 131 mmol/L (137-145)
[2018-01-31] MEDS: LATANOPROST 0.005% OPHTH 2.5 ML 1 DROPS EYE-BOTH (20:50)
[2018-01-31] MEDS: MIRTAZAPINE 15 MG TABLET 30 MG PO (20:50)
[2018-01-31] MEDS: DOXEPIN 25 MG CAPSULE PO (20:50)
[2018-02-01] VITALS (10 sets, daily range): BP systolic 109–145; BP diastolic 59–80; PULSE 78–87; RESP 16–20; TEMP 36.6–37.1; O2SAT 91–95
[2018-02-01] MEDS: DEXTROSE 5%-0.45% NS 1,000 ML 125 ML IV ×3 (01:55→22:03)
[2018-02-01] MEDS: OXYCODONE/ACETAMINOPHEN 5/325 TABLET 2 TAB PO ×4 (03:18→21:19)
[2018-02-01] MEDS: CEFAZOLIN 2 GM/100 ML FROZ.PIGGY IV ×3 (03:18→18:30)
--- NOTE | 2018-02-01 04:52 | PC.NURSE ---
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 Tends to take herself off bedpan prior to calling for help even though instructed not too take herself off bedpan. Spilled bedpan/inc, pt at first refused to have linens changed, instructed it needed to be done & pt agreed for staff to be quick. At beginning of shift pt refused prn meds, With repositioning, pt had facial grimacing and moaning, encouraged pt to take prn med. Percocet 2tabs given at 0320 with good effect. Pain to right groin/pelvic area 02/25. states 09/28 not a lot of pain to left chest incision area. Darrick drain insitu with bulb suction. Left chest dressing intact with small amount of shadowing. Radial pulse strong, no hematoma noted. Surgical bra in place. IVF infusing well. High fall risk precautions in place.
[2018-02-01] MEDS: LEVOTHYROXINE 100 MCG TABLET PO (06:23)
[2018-02-01] MEDS: ENOXAPARIN 40 MG/0.4 ML SYRINGE SUBCUT (08:49)
[2018-02-01] MEDS: GABAPENTIN 300 MG CAPSULE PO ×2 (08:50→21:20)
[2018-02-01] MEDS: hydroCHLOROthiazide 25 MG TABLET 50 MG PO (08:50)
[2018-02-01] MEDS: PANTOPRAZOLE 40 MG TABLET PO (08:50)
[2018-02-01] MEDS: MELOXICAM 7.5 MG TABLET PO (08:50)
--- NOTE | 2018-02-01 09:46 | PT.IPTN ---
Current Diagnoses Sebaceous cyst (01/31/18) Other benign mammary dysplasias of left breast (01/31/18) Other specified fracture of unspecified pubis, initial encounter for closed fracture (01/31/18) Surgery Performed Operation Date: 01/30/18 15:15 Actual Procedures p Excision Breast Cyst(Left) - Carlin Mclean MD Physical Therapy Treatment Note M2 PT-IP Current Condition Start: 01/31/18 12:22 Freq: NEEDED Status: Active Protocol: Document 01/31/18 15:14 AB (Rec: 01/31/18 15:23 AB [id number]) Physical Therapy Current Condition Current Condition Evaluation Date 01/31/18 Treatment Diagnosis s/p L lumpectomy Onset Date 01/30/18 Weight Bearing Status Weight Bearing Status Non-Weight Bearing Allowed Weight Bearing Amount (enter % pt seen for PT eval this or #) (%) morning. spoke with case resolution specialist regarding SNF recommendation this morning. case resolution specialist informed PT ~2pm that pt was seen by Dr. Proctor for R hip pain and MRI was ordered. Checked for MRI result and no result as of this time. Read Dr. Proctor 's consultation note ~310 pm and per documentation: At this time she should be nonweightbearing on the right lower extremity until advanced imaging is reviewed. M3 PT-IP Subjective Start: 01/31/18 12:22 Freq: NEEDED Status: Active Protocol: Document 02/01/18 09:43 AB (Rec: 02/01/18 09:46 AB [id number]) Subjective Physical Therapy Visit Type Notes pt with the following Hip MRI result: MPRESSION: 1. No acute right hip fracture. 2. Nondisplaced superior and inferior right pubic rami fractures. 3. Right sacral insufficiency fracture. 4. Adductor muscle edema is felt to be reactive. 5. Small anterosuperior right acetabular labral tear. 6. Small right hip joint effusion. 7. Mild distal gluteus medius and gluteus minimus tendinopathy. Moderate amount of fluid is contained within the greater trochanteric bursa. Please correlate clinically for possible bursitis. 8. Mild proximal right hamstrings tendinopathy. Will hold off PT until ortho follow up consult for more definitive doctor's order. Last note from Dr. Proctor is that pt to be NWB until MRI result. Spoke with pt's nurse Jerrell and informed regarding holding PT tx until pt is seen by ortho doctor and pt should be mechanical lift for transfers with nursing. Nurse stated that he will f/u with the ortho doctor.
--- NOTE | 2018-02-01 12:03 | OT.IP.TRT ---
Current Diagnoses Sebaceous cyst (01/31/18) Other benign mammary dysplasias of left breast (01/31/18) Other specified fracture of unspecified pubis, initial encounter for closed fracture (01/31/18) Surgery Performed Operation Date: 01/30/18 15:15 Actual Procedures p Excision Breast Cyst(Left) - Carlin Mclean MD Occupational Therapy Treatment Note M3 OT- IP Subjective and Pain Start: 01/31/18 15:17 Freq: Status: Active Protocol: Document 02/01/18 12:01 [facility] (Rec: 02/01/18 12:03 [facility] [id number]) OT- Subjective Occupational Therapy Visit Type Type Administrative Note Notes Still waiting for clarification of weight bearing and status for pt. Therefore, to eval pt later or Saturday.
--- NOTE | 2018-02-01 12:16 | PM.PN.1 ---
Subjective Date Patient Seen: 02/01/18 Time Patient Seen: 12:16 Interval history: Denies any significant pain at the breast incision. However, she is having some issues with right hip and gluteal pain. Pain is significant enough to prevent her from ambulating without obvious discomfort. Pain otherwise well controlled with oral agents. She is tolerating a diet. She is in good spirits overall. Denies chest pain or shortness of breath. Exam Vital Signs (past 8 hours): Vital Signs - 8 hr 02/01/18 06:30 02/01/18 07:35 02/01/18 10:12 Temperature 98.7 F Pulse Rate 84 Respiratory Rate 18 Blood Pressure 109/64 Pulse Oximetry 95 91 94 Pulse Oximetry 94 Oxygen Delivery Method Room Air Oxygen Flow Rate 0 Narrative Exam Narrative: Well-nourished well-developed elderly female in no acute distress. Alert oriented x3. Her entire family is at the bedside during my visit. Sclera nonicteric Left breast incision is healing nicely without erythema or ecchymoses. Drain is in place collecting a small amount of serosanguineous fluid. Output overnight was only a few cc. She is appropriately tender. Skin flaps are otherwise viable. Extremities show no clubbing or cyanosis Objective Labs Result Diagrams: 01/31/18 05:58 01/31/18 18:35 Labs: Laboratory Results - last 24 hr 01/31/18 18:35 Sodium 131 L Potassium 3.1 L Chloride 94 L Carbon Dioxide 30 BUN 13 Creatinine 0.50 L Estimated GFR > 60.0 BUN/Creatinine Ratio 26.0 H Glucose 135 H Calcium 8.6 Assessment & Plan Plan: Assessment/Plan Narrative: 78-year-old female healing after excision of left breast cyst. Drain is removed today. She tolerated this well at the bedside. Continue breast binder. Appreciate orthopedic surgery evaluation. Patient is weight-bearing as tolerated. However, she will require walker and physical therapy. She will need some time to rehabilitate. We therefore plan discharge early next week to a snf facility. I discussed the case with printing services coordinator and they are making those arrangements. I discussed all the above with the patient and her family in detail. Questions were answered to her satisfaction, and she voiced understanding. Orders were written. Quality VTE Deep Vein Thrombosis/Pulmonary Embolism Present on Admission: No
--- NOTE | 2018-02-01 12:20 | P.PN_ITS ---
Subjective Date Patient Seen: 02/01/18 Time Patient Seen: 12:16 Interval history: Denies any significant pain at the breast incision. However, she is having some issues with right hip and gluteal pain. Pain is significant enough to prevent her from ambulating without obvious discomfort. Pain otherwise well controlled with oral agents. She is tolerating a diet. She is in good spirits overall. Denies chest pain or shortness of breath. Exam Vital Signs (past 8 hours): Vital Signs - 8 hr 3 02/01/18 06:30 02/01/18 07:35 02/01/18 10:12 Temperature 98.7 F Pulse Rate 84 Respiratory Rate 18 Blood Pressure 109/64 Pulse Oximetry 95 91 94 Pulse Oximetry 94 Oxygen Delivery Method Room Air Oxygen Flow Rate 0 Narrative Exam Narrative: Well-nourished well-developed elderly female in no acute distress. Alert oriented x3. Her entire family is at the bedside during my visit. Sclera nonicteric Left breast incision is healing nicely without erythema or ecchymoses. Drain is in place collecting a small amount of serosanguineous fluid. Output overnight was only a few cc. She is appropriately tender. Skin flaps are otherwise viable. Extremities show no clubbing or cyanosis Objective Labs Result Diagrams: 01/31/18 05:58 01/31/18 18:35 Labs: Laboratory Results - last 24 hr 01/31/18 18:35 Sodium 131 L Potassium 3.1 L Chloride 94 L Carbon Dioxide 30 BUN 13 Creatinine 0.50 L Estimated GFR > 60.0 BUN/Creatinine Ratio 26.0 H Glucose 135 H Calcium 8.6 Assessment & Plan Plan: Assessment/Plan Narrative: 78-year-old female healing after excision of left breast cyst. Drain is removed today. She tolerated this well at the bedside. Continue breast binder. Appreciate orthopedic surgery evaluation. Patient is weight-bearing as tolerated. However, she will require walker and physical therapy. She will need some time to rehabilitate. We therefore plan discharge early next week to a residential facility. I discussed the case with change coordinator and they are making those arrangements. I discussed all the above with the patient and her family in detail. Questions were answered to her satisfaction, and she voiced understanding. Orders were written. Quality VTE Deep Vein Thrombosis/Pulmonary Embolism Present on Admission: No
[2018-02-01] MEDS: POTASSIUM CHLORIDE 20 MEQ TAB PO (13:43)
--- NOTE | 2018-02-01 13:44 | P.PN_ITS ---
Subjective Date Patient Seen: 01/31/18 Time Patient Seen: 18:31 Interval history: Asked to follow patient admitted with a unusual set of circumstances. Patient had been scheduled for a breast mass removal today or written yesterday and in the interim in the last 24 hr had fallen and was unable to bear weight. Presented to the emergency room was worked up felt like there was no x-ray evidence of fracture of pelvis or hip and there are able to let her leave the ER go up and have her surgical procedure. At the end of that in recovery she was completely unable to bear weight or stand and further evaluation by surgery team with the CT scan showed a nondisplaced pelvic fractures in 2 places. Patient is anxious with some mild dementia and was not agreeable at that point to being in a care facility for rehabilitation and pain control. Has history of anxiety I think some mildly progressive dementia hypothyroidism Exam Vital Signs (past 8 hours): Vital Signs - 8 hr 3 02/01/18 06:30 02/01/18 07:35 02/01/18 10:12 Temperature 98.7 F Pulse Rate 84 Respiratory Rate 18 Blood Pressure 109/64 Pulse Oximetry 95 91 94 Pulse Oximetry 94 Oxygen Delivery Method Room Air Oxygen Flow Rate 0 Narrative Exam Narrative: Patient sitting alert in bed recognizes me instantly very clear communication and accurate history PERRLA EOMs intact. Neck supple without thyromegaly or mass. Lungs clear to auscultation and percussion. Cardiovascular shows regular rate and rhythm without murmur or S3 or significant edema. Abdomen nontender no hepatosplenomegaly mass or rebound. Neuro shows symmetrical sensory motor function speech clear hip. Discomfort but no localized to the pelvic bones. CT review with Ortho indicates no surgery required pain management primarily Objective Labs Result Diagrams: 01/31/18 05:58 01/31/18 18:35 Labs: Laboratory Results - last 24 hr 01/31/18 18:35 Sodium 131 L Potassium 3.1 L Chloride 94 L Carbon Dioxide 30 BUN 13 Creatinine 0.50 L Estimated GFR > 60.0 BUN/Creatinine Ratio 26.0 H Glucose 135 H Calcium 8.6 Assessment & Plan Plan: Assessment/Plan Narrative: Assessment 1. Fall with nondisplaced fracture of superior and inferior pelvic rami on the right side. Hip is without fracture patient having significant pain management issues. Will move oral pain meds closer together continue with backup but may lower that dose. Will go ahead and activate PT and OT for help with mobilization at this point. Anticipate that patient will need a couple of days to get to a point where she is safe enough to participate in therapy or rehab. We will be adjusting pain medicines and also IV fluids given her hypokalemia. Assessment 2. Hypokalemia. We will administer potassium today and consistently looked really and will relook at labs for tomorrow. Assessment 3. Hypothyroidism with one-word pending labs will recheck TSH for stability. Assessment 4. Mild confusion and dementia predating this. I think mild-to- moderate forgetfulness but functions pretty well and independently at home will anticipate return to that Assessment 5. Anxiety patient does have some anxiety I think it is fairly manageable and she has very good support group and the community. Quality VTE Deep Vein Thrombosis/Pulmonary Embolism Present on Admission: No
--- NOTE | 2018-02-01 13:57 | P.PN_ITS ---
Subjective Date Patient Seen: 02/01/18 Time Patient Seen: 13:52 Interval history: Patient of of in is clear today. Continues to struggle with pain. Very limited movement and needing assist even for back bedside commode. Will an active physical therapy and OT today. Low K and has gotten some potassium from surgeons will continue that on a consistent basis and monitor labs for tomorrow. She is agreeable now to this point for rehabilitation for a short period time to get pain control physical therapy stability and balance rehab initiated. Family is in agreement with that and met with patient as well as family and they had all their questions answered. Exam Vital Signs (past 8 hours): Vital Signs - 8 hr 3 02/01/18 06:30 02/01/18 07:35 02/01/18 10:12 Temperature 98.7 F Pulse Rate 84 Respiratory Rate 18 Blood Pressure 109/64 Pulse Oximetry 95 91 94 Pulse Oximetry 94 Oxygen Delivery Method Room Air Oxygen Flow Rate 0 Narrative Exam Narrative: Patient is pleasant alert recognizes me come more comfortably lengthy visit today about the rehabilitation and physical therapy bowels rehab for venting falls and she is on board with our plan. Vital signs are stable at this point PE are RO a EOMs intact lungs clear to auscultation percussion heart shows regular rate and rhythm without murmur is 3 abdomen soft nontender no hepatosplenomegaly or mass decreased movement of right lower extremity secondary to discomfort in the pelvis area speech clear. Objective Labs Result Diagrams: 01/31/18 05:58 01/31/18 18:35 Labs: Laboratory Results - last 24 hr 01/31/18 18:35 Sodium 131 L Potassium 3.1 L Chloride 94 L Carbon Dioxide 30 BUN 13 Creatinine 0.50 L Estimated GFR > 60.0 BUN/Creatinine Ratio 26.0 H Glucose 135 H Calcium 8.6 Assessment & Plan Plan: Assessment/Plan Narrative: Assessment 1. Pelvic fracture following fall at home. Inferior and superior pelvic rami on the side fracture but nondisplaced seems fairly stable and primarily comfort management and and get ability patient with ability to be able to stand and move in care of herself without full assistance Assessment 2. Anxiety patient is coming now that she has had time to review these issues and her regular medications I think are adequate for this. Assessment 3. Hypokalemia. Will supplement the potassium starting today. Assessment 4. Pain management will increase pain med frequency for the oral see if we can get head pain and we need I then IV med we can do that at a lower dose possibly consider CAD DESIGNER DRAFTER. Assessment 5. Hypothyroid stable at this point will continue on her regular meds Quality VTE Deep Vein Thrombosis/Pulmonary Embolism Present on Admission: No
[2018-02-01] MEDS: MORPHINE 4 MG/ML INJ IV ×2 (14:08→18:19)
--- NOTE | 2018-02-01 14:34 | OT.IP.TRT ---
Current Diagnoses Sebaceous cyst (01/31/18) Other benign mammary dysplasias of left breast (01/31/18) Other specified fracture of unspecified pubis, initial encounter for closed fracture (01/31/18) Surgery Performed Operation Date: 01/30/18 15:15 Actual Procedures p Excision Breast Cyst(Left) - Carlin Mclean MD Occupational Therapy Treatment Note M3 OT- IP Subjective and Pain Start: 01/31/18 15:17 Freq: Status: Active Protocol: Document 02/01/18 14:33 [facility] (Rec: 02/01/18 14:34 [facility] [id number]) OT- Subjective Occupational Therapy Visit Type Type Patient Refusal Notes Pt states too tired and not wanting to do OT eval at this time. Therefore OT eval on Saturday as no OT on Saturday.
--- NOTE | 2018-02-01 14:40 | PT.IPTN ---
Current Diagnoses Sebaceous cyst (01/31/18) Other benign mammary dysplasias of left breast (01/31/18) Other specified fracture of unspecified pubis, initial encounter for closed fracture (01/31/18) Surgery Performed Operation Date: 01/30/18 15:15 Actual Procedures p Excision Breast Cyst(Left) - Carlin Mclean MD Physical Therapy Treatment Note M2 PT-IP Current Condition Start: 01/31/18 12:22 Freq: NEEDED Status: Active Protocol: Document 02/01/18 14:38 AB (Rec: 02/01/18 14:40 AB [id number]) Physical Therapy Current Condition Current Condition Evaluation Date 01/31/18 Treatment Diagnosis s/p L lumpectomy Onset Date 01/30/18 Weight Bearing Status Weight Bearing Status Weight Bear as Tolerated Allowed Weight Bearing Amount (enter % Per Dr. Proctor's addendum or #) (%) note after MRI result: pt WBAT on RLE. M3 PT-IP Subjective Start: 01/31/18 12:22 Freq: NEEDED Status: Active Protocol: Document 02/01/18 14:34 AB (Rec: 02/01/18 14:36 AB [id number]) Subjective Physical Therapy Visit Type Type Patient Refusal Notes checked on pt and pt refused therapy. stated that she is tired and want to rest and that she has been up for lunch . Nurse stated that pt c/o pain 07/28 and was just given morphine IV.
--- NOTE | 2018-02-01 15:07 | CM.DPC ---
DCP Cont: Updated Dr Dominguez this morning; pt ready from Medicare standpoint for DC to SNF Saturday02/03/18. It has been confirmed that pt has a pelvic fx that needs to heal, no surgery indicated at this time. Met w/pt, her dtr Sita, and dtr Jordyn (lives near [place]) P# [phone]. Reviewed DCP and DC recommendation for SNF. Pt reluctant but now agreeable to SNF stay before return home and would like [facility]. Placed referral to [facility] for Saturday and completed PASSR. Awaiting confirmation re acceptance and bed availability. Please keep dtr Sita updated. JOSEMANUEL Alonzo
[2018-02-01] MEDS: ONDANSETRON 4 MG ODT 8 MG PO (19:28)
[2018-02-01] MEDS: DOXEPIN 25 MG CAPSULE PO (21:20)
[2018-02-01] MEDS: MIRTAZAPINE 15 MG TABLET 30 MG PO (21:21)
[2018-02-01] MEDS: LATANOPROST 0.005% OPHTH 2.5 ML 1 DROPS EYE-BOTH (21:21)
[2018-02-02] VITALS (15 sets, daily range): BP systolic 120–154; BP diastolic 60–99; PULSE 75–86; RESP 16–24; TEMP 36.1–36.6; O2SAT 87–98
[2018-02-02] MEDS: OXYCODONE/ACETAMINOPHEN 5/325 TABLET 2 TAB PO ×3 (01:12→18:40)
[2018-02-02] MEDS: CEFAZOLIN 2 GM/100 ML FROZ.PIGGY IV ×3 (02:48→20:00)
[2018-02-02] MEDS: MORPHINE 4 MG/ML INJ IV (02:58)
[2018-02-02 05:14] LABS: Add Manual Diff / Slide Review NO; Basophils Percent Auto 0.5 % (0-2); Eosinophils Percent Auto 7.9 % (2-4); Hematocrit 33.8 % (36-46); Hemoglobin 11.6 g/dL (12.0-16.0); Lymphocytes Percent Auto 11.7 % (25-40); Mean Corpuscular HGB Conc 34.2 % (30-36); Mean Corpuscular Hemoglobin 32.5 PG (26-34); Monocytes Percent Auto 12.2 % (3-14); Neutrophils Absolute Auto 5100 /uL (3000-5900); Neutrophils Percent Auto 67.7 % (50-75); Platelet Count 225 X10^3/uL (150-400); Red Blood Cell Count 3.56 X10^6/uL (4.0-5.2); Red Cell Distribution Width 13.2 % (11.6-14.8); White Blood Cell Count 7.6 X10^3/uL (4.5-11.0)
[2018-02-02] MEDS: DEXTROSE 5%-0.45% NS 1,000 ML 125 ML IV (05:24)
--- NOTE | 2018-02-02 05:32 | PC.NURSE ---
Addendum entered by Maday Correia R.N. 02/02/18 08:06: Pt stated feeling dizzy while in bed. Sat up in bed, no change, pt had taken her 2L NC O2 off herself. OOB to BSC with 2PA. Denies chest pain, pain with deep breathing, any change in respiratory status. RT aware at 0720. 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 Had call light within reach. Slept on/off throughout night. OOB several times to BSC, voiding qs, no BM. IVF infusing well to left AC PIV. Pt stated having breast surgery over 10 years ago & had 1 lymph node dissection to left axilla. Spoke with RN coordinator, Left PIV in place to left AC. Rated 4/10 pain to right hip/pelvic area, 2/10 aching/soreness to left breast incision area. Scheduled Percocet given with 1 dose of Morphine IV for BTP at 0300 for 6-7/10 pain after movement & pain not settling in a resting position. At 0520 after pt back to bed after BSC. O2 sat 87% on RA, after deep breathing exercises, O2 not increasing, pt denies any respiratory distress, talking to process description writer without shortness of breath. O2 1L NC placed & continuous O2 monitoring. O2 sat increased to 94% on 1L. Incentive spirometer instructed & pt able to demonstrate, will need reminders to use. Volume to 500cc, only able to hold breath for 2 seconds. Left breast dressing intact with small old sang drainage shadowing, breast binder in place throughout night. High fall risk precautions in place.
[2018-02-02 05:35] LABS: Alanine Aminotransferase 39 IU/L (9-52); Alkaline Phosphatase 55 U/L (38-126); Aspartate Aminotransferase 79 IU/L (14-36); BUN Creatinine Ratio 18.3 (6-22); Bilirubin Total 0.3 mg/dL (0.2-1.3); Blood Urea Nitrogen 11 mg/dL (7-17); Carbon Dioxide 29 mmol/L (22-32); Chloride 92 mmol/L (98-107); Estimated Glomerular Filt Rate > 60.0 mL/min (>60); Glucose 127 mg/dL (80-110); HEMOLYSIS < 15 (0-50); Potassium 3.3 mmol/L (3.4-5.1); Sodium 129 mmol/L (137-145)
[2018-02-02] MEDS: LEVOTHYROXINE 100 MCG TABLET PO (06:09)
[2018-02-02] MEDS: ENOXAPARIN 40 MG/0.4 ML SYRINGE SUBCUT (09:20)
[2018-02-02] MEDS: hydroCHLOROthiazide 25 MG TABLET 50 MG PO (09:20)
[2018-02-02] MEDS: KCL 40 MEQ IN NS 1,000 ML 100 MEQ IV ×2 (09:22→19:36)
[2018-02-02] MEDS: MELOXICAM 7.5 MG TABLET PO (09:23)
[2018-02-02] MEDS: PANTOPRAZOLE 40 MG TABLET PO (09:23)
[2018-02-02] MEDS: FLUTICASONE 120 SPRAY/16 GM SPRAY.SUSP NASAL (09:23)
[2018-02-02] MEDS: GABAPENTIN 300 MG CAPSULE PO ×2 (09:23→21:33)
--- NOTE | 2018-02-02 09:57 | PM.PN.1 ---
Subjective Date Patient Seen: 02/02/18 Time Patient Seen: 09:57 Interval history: Had some mild confusion last night but seems to be resolve. She denies pain currently but is somewhat somnolent from pain medication requirements overnight. She did have episode of urinary retention this morning requiring straight catheterization. Denies any dysuria however. Tolerated diet yesterday but has not yet eaten breakfast this morning. Denies nausea or vomiting. Now on 1-2 L nasal cannula oxygen to maintain saturation in the low 90% range. However, she denies any chest pain or shortness of breath. She has no history of COPD or smoking history. Exam Vital Signs (past 8 hours): Vital Signs - 8 hr 02/02/18 04:11 02/02/18 05:00 02/02/18 05:20 Temperature 97.4 F L Pulse Rate 81 Respiratory Rate 16 16 Blood Pressure 146/69 H Pulse Oximetry 89 L 87 L 02/02/18 05:24 02/02/18 05:27 02/02/18 07:15 Temperature 97.5 F L Pulse Rate 81 Respiratory Rate 16 Blood Pressure 153/74 H Pulse Oximetry 91 94 91 Pulse Oximetry 91 Oxygen Delivery Method Nasal Cannula Oxygen Flow Rate 1 Narrative Exam Narrative: Well-nourished well-developed female in no acute distress lying comfortably in bed. She is somewhat subdued this morning. Nevertheless she is alert oriented x3. Family is at bedside during my visit. Nursing staff also present for my exam. Chest is clear to auscultation bilaterally with regular rate and rhythm. No murmurs, gallops, rubs. No crackles or wheezes. She has good inspiratory effort. Good cough effort as well. Cough is nonproductive. Left breast incision is clean, dry, and intact. No significant drainage. No erythema or significant ecchymoses. Abdomen is soft, nondistended, nontender Objective Labs Result Diagrams: 02/02/18 04:56 02/02/18 04:56 Labs: Laboratory Results - last 24 hr 02/02/18 02/02/18 04:56 04:56 WBC 7.6 RBC 3.56 L Hgb 11.6 L Hct 33.8 L MCV 95.0 MCH 32.5 MCHC 34.2 RDW 13.2 Plt Count 225 Neut % (Auto) 67.7 Lymph % (Auto) 11.7 L [place] % (Auto) 12.2 Eos % (Auto) 7.9 H Baso % (Auto) 0.5 Neut # (Auto) 5100 Sodium 129 L Potassium 3.3 L Chloride 92 L Carbon Dioxide 29 BUN 11 Creatinine 0.60 Estimated GFR > 60.0 BUN/Creatinine Ratio 18.3 Glucose 127 H Calcium 8.0 L Total Bilirubin 0.3 AST 79 H ALT 39 Alkaline Phosphatase 55 Total Protein 6.0 L Albumin 3.0 L Globulin 3.0 Albumin/Globulin Ratio 1.0 Assessment & Plan Plan: Assessment/Plan Narrative: 78-year-old female with normal healing of left breast incision status post removal of inflamed cyst. No evidence of infection. Etiology of her hypoxia is likely atelectasis due to significant decreased mobility. Continue physical therapy and aggressive pulmonary toilet including incentive spirometry. Wean oxygen as tolerated back to room air. Continue diet as tolerated. Changed to normal saline with potassium IV fluids for now to correct electrolytes. [facility] within the next day or so for ongoing rehab for pelvic fractures. All the above discussed with the patient and her family at length. Questions answered to the patient's satisfaction, and she voiced understanding. Orders were written. Quality VTE Deep Vein Thrombosis/Pulmonary Embolism Present on Admission: No
--- NOTE | 2018-02-02 10:03 | P.PN_ITS ---
Subjective Date Patient Seen: 02/02/18 Time Patient Seen: 09:57 Interval history: Had some mild confusion last night but seems to be resolve. She denies pain currently but is somewhat somnolent from pain medication requirements overnight. She did have episode of urinary retention this morning requiring straight catheterization. Denies any dysuria however. Tolerated diet yesterday but has not yet eaten breakfast this morning. Denies nausea or vomiting. Now on 1-2 L nasal cannula oxygen to maintain saturation in the low 90% range. However, she denies any chest pain or shortness of breath. She has no history of COPD or smoking history. Exam Vital Signs (past 8 hours): Vital Signs - 8 hr 3 02/02/18 04:11 02/02/18 05:00 02/02/18 05:20 Temperature 97.4 F L Pulse Rate 81 Respiratory Rate 16 16 Blood Pressure 146/69 H Pulse Oximetry 89 L 87 L 3 02/02/18 05:24 02/02/18 05:27 02/02/18 07:15 Temperature 97.5 F L Pulse Rate 81 Respiratory Rate 16 Blood Pressure 153/74 H Pulse Oximetry 91 94 91 Pulse Oximetry 91 Oxygen Delivery Method Nasal Cannula Oxygen Flow Rate 1 Narrative Exam Narrative: Well-nourished well-developed female in no acute distress lying comfortably in bed. She is somewhat subdued this morning. Nevertheless she is alert oriented x3. Family is at bedside during my visit. Nursing staff also present for my exam. Chest is clear to auscultation bilaterally with regular rate and rhythm. No murmurs, gallops, rubs. No crackles or wheezes. She has good inspiratory effort. Good cough effort as well. Cough is nonproductive. Left breast incision is clean, dry, and intact. No significant drainage. No erythema or significant ecchymoses. Abdomen is soft, nondistended, nontender Objective Labs Result Diagrams: 02/02/18 04:56 02/02/18 04:56 Labs: Laboratory Results - last 24 hr 02/02/18 02/02/18 04:56 04:56 WBC 7.6 RBC 3.56 L Hgb 11.6 L Hct 33.8 L MCV 95.0 MCH 32.5 MCHC 34.2 RDW 13.2 Plt Count 225 Neut % (Auto) 67.7 Lymph % (Auto) 11.7 L [place] % (Auto) 12.2 Eos % (Auto) 7.9 H Baso % (Auto) 0.5 Neut # (Auto) 5100 Sodium 129 L Potassium 3.3 L Chloride 92 L Carbon Dioxide 29 BUN 11 Creatinine 0.60 Estimated GFR > 60.0 BUN/Creatinine Ratio 18.3 Glucose 127 H Calcium 8.0 L Total Bilirubin 0.3 AST 79 H ALT 39 Alkaline Phosphatase 55 Total Protein 6.0 L Albumin 3.0 L Globulin 3.0 Albumin/Globulin Ratio 1.0 Assessment & Plan Plan: Assessment/Plan Narrative: 78-year-old female with normal healing of left breast incision status post removal of inflamed cyst. No evidence of infection. Etiology of her hypoxia is likely atelectasis due to significant decreased mobility. Continue physical therapy and aggressive pulmonary toilet including incentive spirometry. Wean oxygen as tolerated back to room air. Continue diet as tolerated. Changed to normal saline with potassium IV fluids for now to correct electrolytes. Plan to be discharged to alf facility within the next day or so for ongoing rehab for pelvic fractures. All the above discussed with the patient and her family at length. Questions answered to the patient's satisfaction, and she voiced understanding. Orders were written. Quality VTE Deep Vein Thrombosis/Pulmonary Embolism Present on Admission: No
--- NOTE | 2018-02-02 10:47 | PM.PN.1 ---
Subjective Date Patient Seen: 02/02/18 Time Patient Seen: 10:47 Interval history: Patient a little bit groggy this morning. Apparently required increased pain medicine through the night. Has not been moving much and also is requiring a low oxygen this morning. No signs of infection vital signs otherwise stable alert and was speaking clearly and this morning. Seems to be in a little less discomfort she tells me she has having less pain and is scooting around in bed a little bit although still to 2 people to transfer her to a bedside commode. Physical therapy working with her this morning. We will be working also on incentive spirometry and RT working with her to try to get those lungs inflated. Also a surgery is giving her some potassium in her IV fluids. Anticipate that these things all improving tomorrow and anticipate hopefully rehabilitation to transfer to long term tomorrow. Exam Vital Signs (past 8 hours): Vital Signs - 8 hr 02/02/18 04:11 02/02/18 05:00 02/02/18 05:20 Temperature 97.4 F L Pulse Rate 81 Respiratory Rate 16 16 Blood Pressure 146/69 H Pulse Oximetry 89 L 87 L 02/02/18 05:24 02/02/18 05:27 02/02/18 07:15 Temperature 97.5 F L Pulse Rate 81 Respiratory Rate 16 Blood Pressure 153/74 H Pulse Oximetry 91 94 91 Pulse Oximetry 91 Oxygen Delivery Method Nasal Cannula Oxygen Flow Rate 1 Narrative Exam Narrative: Patient sitting comfortably in bed with oxygen on by nasal cannula. Speaking clearly cognitively functioning at her baseline. PCR RLA EOMs intact. Neck without mass. Lungs clear to auscultation and percussion. Cardiac shows regular rate and rhythm without murmur S3. Trace edema. First incision site good per surgery. Abdomen soft nontender no hepatosplenomegaly. Neuro shows intact and symmetrical neuro motor and speech is clear. Objective Labs Result Diagrams: 02/02/18 04:56 02/02/18 04:56 Labs: Laboratory Results - last 24 hr 02/02/18 02/02/18 04:56 04:56 WBC 7.6 RBC 3.56 L Hgb 11.6 L Hct 33.8 L MCV 95.0 MCH 32.5 MCHC 34.2 RDW 13.2 Plt Count 225 Neut % (Auto) 67.7 Lymph % (Auto) 11.7 L [place] % (Auto) 12.2 Eos % (Auto) 7.9 H Baso % (Auto) 0.5 Neut # (Auto) 5100 Sodium 129 L Potassium 3.3 L Chloride 92 L Carbon Dioxide 29 BUN 11 Creatinine 0.60 Estimated GFR > 60.0 BUN/Creatinine Ratio 18.3 Glucose 127 H Calcium 8.0 L Total Bilirubin 0.3 AST 79 H ALT 39 Alkaline Phosphatase 55 Total Protein 6.0 L Albumin 3.0 L Globulin 3.0 Albumin/Globulin Ratio 1.0 Assessment & Plan Plan: Assessment/Plan Narrative: Assessment 1. Fractured pelvis with superior and inferior pelvic rami fracture without displacement. Still requiring 2 person assist even just to move from lying in bed to the bedside commode. Requiring assistance with shifting in bed. Not be ready for real ambulation I do not think it is. Try to decrease medications I think she got a little over-sedated through the night so I have lowered her dose of her morphine if she has severe pain and have made changed her oxycodone to a captain waiter interval and with as needed option. Assessment 2. Hypoxia this acute issue requiring supplementation. I think it is combination of pain medication sedation and immobility. Dr. Dominguez he has a working on incentive spirometry with RT looking and will continue that. Assessment 3. Hypokalemia slightly improved with oral potassium yesterday and surgery has ordered IV potassium for for today will recheck lab in the morning and make sure that is improving. Assessment 4. Anemia stable with no evidence of bleeding will continue to monitor surgical wound doing well after large SOB cyst removal. Assessment 5 mild dementia seems stable at this point I think a little bit of sedation from pain meds. Assessment 6. Hypertension as inadequate control it is low of this little bit this morning but Quality VTE Deep Vein Thrombosis/Pulmonary Embolism Present on Admission: No
--- NOTE | 2018-02-02 10:51 | P.PN_ITS ---
Subjective Date Patient Seen: 02/02/18 Time Patient Seen: 10:47 Interval history: Patient a little bit groggy this morning. Apparently required increased pain medicine through the night. Has not been moving much and also is requiring a low oxygen this morning. No signs of infection vital signs otherwise stable alert and was speaking clearly and this morning. Seems to be in a little less discomfort she tells me she has having less pain and is scooting around in bed a little bit although still to 2 people to transfer her to a bedside commode. Physical therapy working with her this morning. We will be working also on incentive spirometry and RT working with her to try to get those lungs inflated. Also a surgery is giving her some potassium in her IV fluids. Anticipate that these things all improving tomorrow and anticipate hopefully rehabilitation to transfer to intermediate tomorrow. Exam Vital Signs (past 8 hours): Vital Signs - 8 hr 3 02/02/18 04:11 02/02/18 05:00 02/02/18 05:20 Temperature 97.4 F L Pulse Rate 81 Respiratory Rate 16 16 Blood Pressure 146/69 H Pulse Oximetry 89 L 87 L 3 02/02/18 05:24 02/02/18 05:27 02/02/18 07:15 Temperature 97.5 F L Pulse Rate 81 Respiratory Rate 16 Blood Pressure 153/74 H Pulse Oximetry 91 94 91 Pulse Oximetry 91 Oxygen Delivery Method Nasal Cannula Oxygen Flow Rate 1 Narrative Exam Narrative: Patient sitting comfortably in bed with oxygen on by nasal cannula. Speaking clearly cognitively functioning at her baseline. PCR RLA EOMs intact. Neck without mass. Lungs clear to auscultation and percussion. Cardiac shows regular rate and rhythm without murmur S3. Trace edema. First incision site good per surgery. Abdomen soft nontender no hepatosplenomegaly. Neuro shows intact and symmetrical neuro motor and speech is clear. Objective Labs Result Diagrams: 02/02/18 04:56 02/02/18 04:56 Labs: Laboratory Results - last 24 hr 02/02/18 02/02/18 04:56 04:56 WBC 7.6 RBC 3.56 L Hgb 11.6 L Hct 33.8 L MCV 95.0 MCH 32.5 MCHC 34.2 RDW 13.2 Plt Count 225 Neut % (Auto) 67.7 Lymph % (Auto) 11.7 L [place] % (Auto) 12.2 Eos % (Auto) 7.9 H Baso % (Auto) 0.5 Neut # (Auto) 5100 Sodium 129 L Potassium 3.3 L Chloride 92 L Carbon Dioxide 29 BUN 11 Creatinine 0.60 Estimated GFR > 60.0 BUN/Creatinine Ratio 18.3 Glucose 127 H Calcium 8.0 L Total Bilirubin 0.3 AST 79 H ALT 39 Alkaline Phosphatase 55 Total Protein 6.0 L Albumin 3.0 L Globulin 3.0 Albumin/Globulin Ratio 1.0 Assessment & Plan Plan: Assessment/Plan Narrative: Assessment 1. Fractured pelvis with superior and inferior pelvic rami fracture without displacement. Still requiring 2 person assist even just to move from lying in bed to the bedside commode. Requiring assistance with shifting in bed. Not be ready for real ambulation I do not think it is. Try to decrease medications I think she got a little over-sedated through the night so I have lowered her dose of her morphine if she has severe pain and have made changed her oxycodone to a telegraph editor interval and with as needed option. Assessment 2. Hypoxia this acute issue requiring supplementation. I think it is combination of pain medication sedation and immobility. Dr. Dominguez he has a working on incentive spirometry with RT looking and will continue that. Assessment 3. Hypokalemia slightly improved with oral potassium yesterday and surgery has ordered IV potassium for for today will recheck lab in the morning and make sure that is improving. Assessment 4. Anemia stable with no evidence of bleeding will continue to monitor surgical wound doing well after large SOB cyst removal. Assessment 5 mild dementia seems stable at this point I think a little bit of sedation from pain meds. Assessment 6. Hypertension as inadequate control it is low of this little bit this morning but Quality VTE Deep Vein Thrombosis/Pulmonary Embolism Present on Admission: No
--- NOTE | 2018-02-02 11:19 | PT.IPTN ---
Current Diagnoses Sebaceous cyst (01/31/18) Other benign mammary dysplasias of left breast (01/31/18) Other specified fracture of unspecified pubis, initial encounter for closed fracture (01/31/18) Surgery Performed Operation Date: 01/30/18 15:15 Actual Procedures p Excision Breast Cyst(Left) - Carlin Mclean MD Physical Therapy Treatment Note M2 PT-IP Current Condition Start: 01/31/18 12:22 Freq: NEEDED Status: Active Protocol: Document 02/01/18 14:38 AB (Rec: 02/01/18 14:40 AB [id number]) Physical Therapy Current Condition Current Condition Evaluation Date 01/31/18 Treatment Diagnosis s/p L lumpectomy Onset Date 01/30/18 Weight Bearing Status Weight Bearing Status Weight Bear as Tolerated Allowed Weight Bearing Amount (enter % Per Dr. Proctor's addendum or #) (%) note after MRI result: pt WBAT on RLE. M3 PT-IP Subjective Start: 01/31/18 12:22 Freq: NEEDED Status: Active Protocol: Document 02/02/18 10:36 CLB (Rec: 02/02/18 11:19 CLB [email or web address]) Subjective Physical Therapy Visit Type Type Treatment Note Visit Start Time 10:36 Visit Stop Time 10:52 Total Visit Minutes 15 Number of REGIONAL TANKER TRUCK DRIVER Visits 1 Physical Therapy Visit Comments Patient Comments Pt agreed to transfer to chair . Therapy Pain Assessment Pain When Pain Assessed During Mobility Pain Present Pain Present Pain Reported Location Rt Hip Intensity 8 Scale Used Numeric (1 - 10) M4 PT-IP Mobility and Gait Start: 01/31/18 12:22 Freq: NEEDED Status: Active Protocol: Document 02/02/18 10:36 CLB (Rec: 02/02/18 11:19 CLB [id number]) PT-Bed Mobility Assessment Supine to Sit Supine to Sit Contact Guard Assistance Scooting Scooting to Edge of Bed Contact Guard Assistance PT-Transfer Assessment Sit to and From Stand Sit to and from Stand Contact Guard Assistance Equipment Transfer Assistive Device Gait Belt Front Wheeled Walker Transfers Transfer Destination Chair Transfer Technique Stand Pivot Transfer Ability Level of Assist Moderate Assistance Gait Assessment Gait Gait Assistance Required: Moderate Assistance 1 Person Assist Distance (Feet) (feet) 3 Able to Maintain Weight Bearing Status Yes During Gait Assistive Devices Assistive Device Front Wheeled Walker Gait Deviations General Gait Pattern Ataxic Decreased Stride Length Decreased Feet Clearance Flexed Trunk Step-to Gait Wide Based Gait Factors Limiting Gait Function Factors Limiting Gait Function Decreased Activity Tolerance Decreased Strength Difficulty Following Directions Incoordination Limited Range of Motion Pain Poor Balance Poor Safety Awareness Comments Gait Comments Pt needs cues for sequencing and chair approach. Pt able to ambulate 3 ft with chair follow. M5 PT-IP Objective Assessments Start: 01/31/18 12:22 Freq: NEEDED Status: Active Protocol: Document 01/31/18 12:23 AB (Rec: 01/31/18 12:35 AB [email or web address]) Orientation Orientation/Cognition Level of Alertness Alert Orientation Name Age Birthday Month Date Year Day of Week Place Situation Safety Awareness Decreased Safety Awareness Gross Range of Motion Lower Extremity ROM Assessment Within Functional Limits Strength Lower Extremity Strength Assessment Bilaterally Impaired Comments Strength Comments RLE weaker than LLE: 4-/5 LLE : 4/5 M6 PT-IP Treatment Start: 01/31/18 12:22 Freq: NEEDED Status: Active Protocol: Document 01/31/18 12:23 AB (Rec: 01/31/18 12:35 AB [email or web address]) Physical Therapy Treatment Education Education Provided Safety M7 PT-IP Assessment and Plan Start: 01/31/18 12:22 Freq: NEEDED Status: Active Protocol: Document 02/02/18 10:36 CLB (Rec: 02/02/18 11:19 CLB [id number]) PT Summary Assessment and Plan Summary Impairments Pain ROM Strength Balance Cognition Bed Mobility Transfers Gait Activity Tolerance Assessment Summary Pt needing less assist with bed mobility and able to ambulate~3ft with chair follow , max cueing for safety. Goals Bed Mobility Goal Contact Guard Assistance Transfer Goal Contact Guard Assistance Gait Goal Contact Guard Assistance Gait Distance 100 Other Goals up/down 15 steps with L rail ascending. Days to Meet Goals 3 Frequency of Treatment Frequency Of Treatment Twice a Day Recommendations To Nursing Amount of Assist Needed 2 Person Assist Discharge Recommendations PT Discharge Recommendations SNF Rehab
--- NOTE | 2018-02-02 11:23 | PC.NURSE ---
Addendum entered by Silvina Gordon R.N. 02/02/18 13:47: Pt unable to void for a second time. Bladder scanned for 543. Phoned Dr. Torres and he ordered a quinn catheter to be placed. Report passed on to KARENA Mckinney and she is aware. Original Note: ASSESS- PT IS A&OX3 BUT IS FORGETFUL AND GROGGY THIS AM. UP TO CHAIR WITH 1-2PA. TRIED TO VOID THIS MORNING AND UNSUCCESSFUL. PT HAD 845CC OF BLADDER IN URINE AFTER BLADDER SCAN DONE. CALLED DR. DOAN AND HE ORDERED A IN/OUT CATH TO BE DONE. PT HAD 845 CC OF URINE OUT, AND SHE TOLERATED THE PROCEDURE WELL. URINE COLOR CLEAR AND YELLOW. PT IS UP IN CHAIR AND NO PAIN MEDICATION GIVEN THIS MORNING, PT HAS BEEN GROGGY AND SLEEPING A LOT. SHE IS NOW ON 2L OF O2 AND SATS ARE 93-94%. BS WNL BUT SLIGHTLY DECREASED IN THE LOBES. SHE IS FORGETFUL AND WILL TAKE HER OXYGEN OFF, WE GENTLY PUT THE O2 CANNULAS BACK IN HER NARES. INTO SEE PATIENT AND D/CD ROUTINE PERCOCET ORDERS AND HAS MADE THEM EVERY 6 HOURS PRN. PT ALSO HAS A MORPHINE IV ORDER FOR BREAK THROUGH PAIN IF NEEDED.
--- NOTE | 2018-02-02 13:47 | PT.IPTN ---
Current Diagnoses Sebaceous cyst (01/31/18) Other benign mammary dysplasias of left breast (01/31/18) Other specified fracture of unspecified pubis, initial encounter for closed fracture (01/31/18) Surgery Performed Operation Date: 01/30/18 15:15 Actual Procedures p Excision Breast Cyst(Left) - Carlin Mclean MD Physical Therapy Treatment Note M2 PT-IP Current Condition Start: 01/31/18 12:22 Freq: NEEDED Status: Active Protocol: Document 02/01/18 14:38 AB (Rec: 02/01/18 14:40 AB [id number]) Physical Therapy Current Condition Current Condition Evaluation Date 01/31/18 Treatment Diagnosis s/p L lumpectomy Onset Date 01/30/18 Weight Bearing Status Weight Bearing Status Weight Bear as Tolerated Allowed Weight Bearing Amount (enter % Per Dr. Proctor's addendum or #) (%) note after MRI result: pt WBAT on RLE. M3 PT-IP Subjective Start: 01/31/18 12:22 Freq: NEEDED Status: Active Protocol: Document 02/02/18 12:50 CLB (Rec: 02/02/18 13:47 CLB [id number]) Subjective Physical Therapy Visit Type Type Treatment Note Visit Start Time 12:50 Visit Stop Time 15:15 Total Visit Minutes 25 Number of SOFTWARE ARCHITECT Visits 2 Physical Therapy Visit Comments Patient Comments Pt needing to use BSC and wanting to get back to bed. Therapy Pain Assessment Pain When Pain Assessed During Mobility Pain Present Pain Present Pain Reported M4 PT-IP Mobility and Gait Start: 01/31/18 12:22 Freq: NEEDED Status: Active Protocol: Document 02/02/18 12:50 CLB (Rec: 02/02/18 13:47 CLB [id number]) PT-Bed Mobility Assessment Sit to Supine Sit to Supine Contact Guard Assistance Scooting Scooting Up and Down in Bed Standby Assistance PT-Transfer Assessment Sit to and From Stand Sit to and from Stand Contact Guard Assistance Equipment Transfer Assistive Device Gait Belt Front Wheeled Walker Transfers Transfer Destination Bed Bedside Commode Transfer Technique Stand Pivot Transfer Ability Level of Assist Contact Guard Assistance Gait Assessment Gait Gait Assistance Required: Minimum Assistance 1 Person Assist Distance (Feet) (feet) 5 Able to Maintain Weight Bearing Status Yes During Gait Assistive Devices Assistive Device Gait Belt Front Wheeled Walker Gait Deviations General Gait Pattern Ataxic Decreased Stride Length Decreased Feet Clearance Flexed Trunk Step-to Gait Wide Based Gait Factors Limiting Gait Function Factors Limiting Gait Function Decreased Activity Tolerance Decreased Strength Difficulty Following Directions Incoordination Limited Range of Motion Pain Poor Balance Poor Safety Awareness Comments Gait Comments Pt improving with walker use and step sequencing. M5 PT-IP Objective Assessments Start: 01/31/18 12:22 Freq: NEEDED Status: Active Protocol: Document 01/31/18 12:23 AB (Rec: 01/31/18 12:35 AB [email or web address]) Orientation Orientation/Cognition Level of Alertness Alert Orientation Name Age Birthday Month Date Year Day of Week Place Situation Safety Awareness Decreased Safety Awareness Gross Range of Motion Lower Extremity ROM Assessment Within Functional Limits Strength Lower Extremity Strength Assessment Bilaterally Impaired Comments Strength Comments RLE weaker than LLE: 4-/5 LLE : 4/5 M6 PT-IP Treatment Start: 01/31/18 12:22 Freq: NEEDED Status: Active Protocol: Document 01/31/18 12:23 AB (Rec: 01/31/18 12:35 AB [email or web address]) Physical Therapy Treatment Education Education Provided Safety M7 PT-IP Assessment and Plan Start: 01/31/18 12:22 Freq: NEEDED Status: Active Protocol: Document 02/02/18 12:50 CLB (Rec: 02/02/18 13:47 CLB [id number]) PT Summary Assessment and Plan Summary Impairments Pain ROM Strength Balance Cognition Bed Mobility Transfers Gait Activity Tolerance Assessment Summary Pt needed only CGA with bed mobility back to bed. Pt ambulated 5ft with less assist and fewer cues. Pt improving with walker use. Goals Bed Mobility Goal Contact Guard Assistance Transfer Goal Contact Guard Assistance Gait Goal Contact Guard Assistance Gait Distance 100 Other Goals up/down 15 steps with L rail ascending. Days to Meet Goals 3 Frequency of Treatment Frequency Of Treatment Twice a Day Treatment Plan Other Recommendations and Next Treatment gait, transfers Focus Recommendations To Nursing Amount of Assist Needed 1 Person Assist Discharge Recommendations PT Discharge Recommendations SNF Rehab
--- NOTE | 2018-02-02 14:45 | PC.NURSE ---
pt complaining of headache, refused percocet and would like to request Tylenol from doctor. Will call now.
[2018-02-02] MEDS: DOCUSATE 100 MG CAPSULE PO (19:05)
[2018-02-02] MEDS: MORPHINE 4 MG/ML INJ 2 MG IV (21:03)
[2018-02-02] MEDS: LATANOPROST 0.005% OPHTH 2.5 ML 1 DROPS EYE-BOTH (21:32)
[2018-02-02] MEDS: DOXEPIN 25 MG CAPSULE PO (21:33)
[2018-02-02] MEDS: MIRTAZAPINE 15 MG TABLET 30 MG PO (21:33)
[2018-02-02] MEDS: HYDROMORPHONE 2 MG TABLET PO (22:56)
[2018-02-03] VITALS (11 sets, daily range): BP systolic 117–154; BP diastolic 55–84; PULSE 76–88; RESP 16–24; TEMP 36.1–36.8; O2SAT 93–97
--- NOTE | 2018-02-03 | DI.RAD.S_ITS ---
PROCEDURE: XR CHEST 1V INDICATIONS: hypoxia after pelvic fracture TECHNIQUE: One view of the chest was acquired. COMPARISON: [facility], , CHEST 1 VIEW, 01/23/2016, 13:12. FINDINGS: Surgical changes and devices: Surgical clips left axilla. Lungs and pleura: Chronic elevation right hemidiaphragm. Possible small left subpulmonic pleural effusion, no pneumothorax. Mild atelectasis or scarring at the left base laterally appears unchanged, otherwise lung is clear. Mediastinum: Mediastinal contours appear normal. Heart size is normal. Bones and chest wall: No suspicious bony lesions. Overlying soft tissues appear unremarkable. IMPRESSION: 1. Possible small left subpulmonic pleural effusion, indeterminant. 2. Atelectasis/scarring at the left base laterally. Dictated by: Prudencio Barrera M.D. on 02/03/2018 at 10:35 Approved by: Prudencio Barrera M.D. on 02/03/2018 at 10:39
[2018-02-03] MEDS: OXYCODONE/ACETAMINOPHEN 5/325 TABLET 2 TAB PO ×4 (02:39→23:52)
[2018-02-03] MEDS: CEFAZOLIN 2 GM/100 ML FROZ.PIGGY IV (03:17)
[2018-02-03 05:13] LABS: Add Manual Diff / Slide Review NO; Basophils Percent Auto 0.6 % (0-2); Eosinophils Percent Auto 7.8 % (2-4); Hematocrit 31.8 % (36-46); Hemoglobin 10.9 g/dL (12.0-16.0); Lymphocytes Percent Auto 11.8 % (25-40); Mean Corpuscular HGB Conc 34.3 % (30-36); Mean Corpuscular Hemoglobin 32.5 PG (26-34); Mean Corpuscular Volume 94.9 fL (80-100); Monocytes Percent Auto 14.8 % (3-14); Neutrophils Absolute Auto 4300 /uL (3000-5900); Platelet Count 250 X10^3/uL (150-400); Red Blood Cell Count 3.35 X10^6/uL (4.0-5.2); Red Cell Distribution Width 13.3 % (11.6-14.8); White Blood Cell Count 6.5 X10^3/uL (4.5-11.0)
[2018-02-03 05:20] LABS: Alanine Aminotransferase 37 IU/L (9-52); Albumin 2.8 g/dL (3.5-5.0); Alkaline Phosphatase 58 U/L (38-126); Aspartate Aminotransferase 53 IU/L (14-36); Bilirubin Total 0.3 mg/dL (0.2-1.3); Blood Urea Nitrogen 10 mg/dL (7-17); Calcium 8.4 mg/dL (8.4-10.2); Carbon Dioxide 32 mmol/L (22-32); Chloride 98 mmol/L (98-107); Estimated Glomerular Filt Rate > 60.0 mL/min (>60); Globulin 2.8 g/dL (1.7-4.1); Glucose 102 mg/dL (80-110); HEMOLYSIS < 15 (0-50); Potassium 4.6 mmol/L (3.4-5.1); Sodium 135 mmol/L (137-145); Total Protein 5.6 g/dL (6.3-8.2)
[2018-02-03] MEDS: LEVOTHYROXINE 100 MCG TABLET PO (06:14)
[2018-02-03] MEDS: HYDROMORPHONE 2 MG TABLET PO ×2 (06:14→12:50)
[2018-02-03] MEDS: KCL 40 MEQ IN NS 1,000 ML 100 MEQ IV (07:25)
[2018-02-03] MEDS: MAGNESIUM HYDROXIDE 30 ML UDC PO (08:39)
[2018-02-03] MEDS: PANTOPRAZOLE 40 MG TABLET PO (08:39)
[2018-02-03] MEDS: GABAPENTIN 300 MG CAPSULE PO ×2 (08:39→20:31)
[2018-02-03] MEDS: hydroCHLOROthiazide 25 MG TABLET 50 MG PO (08:40)
[2018-02-03] MEDS: MELOXICAM 7.5 MG TABLET PO (08:40)
[2018-02-03] MEDS: cephALEXin 250 MG CAPSULE PO ×4 (09:23→20:30)
[2018-02-03] MEDS: ENOXAPARIN 40 MG/0.4 ML SYRINGE SUBCUT (09:24)
--- NOTE | 2018-02-03 09:47 | PT.IPTN ---
Current Diagnoses Sebaceous cyst (01/31/18) Other benign mammary dysplasias of left breast (01/31/18) Other specified fracture of unspecified pubis, initial encounter for closed fracture (01/31/18) Surgery Performed Operation Date: 01/30/18 15:15 Actual Procedures p Excision Breast Cyst(Left) - Carlin Mclean MD Physical Therapy Treatment Note M2 PT-IP Current Condition Start: 01/31/18 12:22 Freq: NEEDED Status: Active Protocol: Document 02/03/18 09:47 DLM (Rec: 02/03/18 10:26 [facility] [id number]) Physical Therapy Current Condition Current Condition Evaluation Date 01/31/18 Treatment Diagnosis s/p L lumpectomy, pubis fx due to fall, impaired gait Onset Date 01/30/18 Weight Bearing Status Weight Bearing Status Weight Bear as Tolerated Allowed Weight Bearing Amount (enter % Per Dr. Proctor's addendum or #) (%) note after MRI result: pt WBAT on RLE. M3 PT-IP Subjective Start: 01/31/18 12:22 Freq: NEEDED Status: Active Protocol: Document 02/03/18 09:47 DLM (Rec: 02/03/18 10:26 DL [email or web address]) Subjective Physical Therapy Visit Type Type Treatment Note Visit Start Time 09:00 Visit Stop Time 09:47 Total Visit Minutes 47 Number of MANAGED CARE NURSE Visits 0 Physical Therapy Visit Comments Patient Comments She is not sure what she can do, hurts to move right LE Therapy Pain Assessment Pain When Pain Assessed During Mobility Pain Present Pain Present Pain Reported Location Rt Hip Intensity 6 Scale Used Numeric (1 - 10) Description Aching Pain Behaviors Guarding Holding Area Wincing Pain Management Techniques Re-positioning M4 PT-IP Mobility and Gait Start: 01/31/18 12:22 Freq: NEEDED Status: Active Protocol: Document 02/03/18 09:47 DLM (Rec: 02/03/18 10:26 DL [id number]) PT-Bed Mobility Assessment Supine to Sit Supine to Sit Moderate Assistance Scooting Scooting to Edge of Bed Standby Assistance PT-Transfer Assessment Sit to and From Stand Sit to and from Stand Minimal Assistance Equipment Transfer Assistive Device Gait Belt Front Wheeled Walker Orthotic/Prosthetic Devices or Brace: No Transfers Transfer Destination Chair Transfer Technique Stand Step Pivot Transfer Ability Level of Assist Minimal Assistance Comments Mobility Comments verbal cues for safe techniques, extra help for lines, noted cough and using 2 LPM oxygen Gait Assessment Gait Gait Assistance Required: Minimum Assistance Distance (Feet) (feet) 8 Able to Maintain Weight Bearing Status Yes During Gait Assistive Devices Assistive Device Gait Belt Front Wheeled Walker Orthotic/Prosthetic Devices or Brace: No Gait Deviations General Gait Pattern Antalgic Decreased Stride Length Flexed Trunk Factors Limiting Gait Function Factors Limiting Gait Function Decreased Activity Tolerance Decreased Strength Pain Comments Gait Comments pt reports increased pain as she attempts to ambulate further, two trials of gait for 8 feet each. Pt left up in recliner with feet elevated, call light close and chair alarm in use. Pt impulsive today and needs safety reminders throughout visit. PT-Balance Assessment Sitting Balance and Reactions Static Sitting Balance Ability Normal Dynamic Sitting Balance Ability Good Standing Balance and Reactions Static Standing Balance Ability Fair Dynamic Standing Balance Ability Fair Device Used FWW needed M5 PT-IP Objective Assessments Start: 01/31/18 12:22 Freq: NEEDED Status: Active Protocol: Document 01/31/18 12:23 AB (Rec: 01/31/18 12:35 AB [id number]) Orientation Orientation/Cognition Level of Alertness Alert Orientation Name Age Birthday Month Date Year Day of Week Place Situation Safety Awareness Decreased Safety Awareness Gross Range of Motion Lower Extremity ROM Assessment Within Functional Limits Strength Lower Extremity Strength Assessment Bilaterally Impaired Comments Strength Comments RLE weaker than LLE: 4-/5 LLE : 4/5 M6 PT-IP Treatment Start: 01/31/18 12:22 Freq: NEEDED Status: Active Protocol: Document 02/03/18 09:47 DLM (Rec: 02/03/18 10:26 DLM [id number]) Physical Therapy Treatment Exercises Exercises Ankle Pumps Gluteal Sets Seated Knee Flexion/Extension Education Education Provided Weight Bearing Status Safety M7 PT-IP Assessment and Plan Start: 01/31/18 12:22 Freq: NEEDED Status: Active Protocol: Document 02/03/18 09:47 DLM (Rec: 02/03/18 10:26 DLM [id number]) PT Summary Assessment and Plan Summary Impairments Pain ROM Strength Balance Cognition Bed Mobility Transfers Gait Activity Tolerance Progress Towards Goals Slow Progress due to Activity Tolerance Assessment Summary She continues to slowly progress. Her pelvic pain and pain moving right LE affects all of her mobility. She is not safe to return home alone and will need 24/7 assist at discharge. Continue to recommend SNF rehab. She has not been able to progress to stair training due to pain issues and limited gait. Goals Bed Mobility Goal Contact Guard Assistance Transfer Goal Contact Guard Assistance Front Wheeled Walker Gait Goal Contact Guard Assistance Front Wheel Walker Gait Distance 100 Other Goals up/down 15 steps with L rail ascending. Days to Meet Goals 3 Frequency of Treatment Frequency Of Treatment Twice a Day Treatment Plan Other Recommendations and Next Treatment continue to slowly progress Focus gait as tolerated by pain Recommendations To Nursing Amount of Assist Needed 1 Person Assist Discharge Recommendations PT Discharge Recommendations SNF Rehab
--- NOTE | 2018-02-03 10:24 | PM.PN.1 ---
Subjective Date Patient Seen: 02/03/18 Time Patient Seen: 10:24 Interval history: Pain better this morning. She received oral Dilaudid in conjunction with oral Percocet last evening. She has also received intravenous morphine within the last 24 hr. No subjective fever or chills. No chest pain. Denies any significant incisional pain at the left breast. Tolerating a diet without difficulty. No nausea or vomiting. Has had no bowel movement since admission. Passing some flatus intermittently. Denies shortness of breath but remains on 2 L nasal cannula oxygen which she does not normally required baseline. Fuentes catheter remains in place due to urinary retention likely secondary to narcotics and decreased mobility. Exam Vital Signs (past 8 hours): Vital Signs - 8 hr 02/03/18 05:00 02/03/18 05:10 02/03/18 07:05 Temperature 97 F L 98.3 F Pulse Rate 80 79 Respiratory Rate 24 16 Blood Pressure 117/59 L 128/55 H Pulse Oximetry 94 94 97 Pulse Oximetry 97 Oxygen Delivery Method Nasal Cannula Oxygen Flow Rate 2 Narrative Exam Narrative: Well-nourished well-developed female sitting comfortably in bedside chair in no acute distress. Alert oriented x3. Remains on nasal cannula oxygen. Has audible wheezing today but no crackles. No productive cough. She is able to perform incentive spirometry to approximately 1000 cc only. Left breast dressing clean, dry, and intact Abdomen soft, nondistended, nontender Extremities show no significant edema Objective Labs Result Diagrams: 02/03/18 04:57 02/03/18 04:57 Labs: Laboratory Results - last 24 hr 02/03/18 02/03/18 04:57 04:57 WBC 6.5 RBC 3.35 L Hgb 10.9 L Hct 31.8 L MCV 94.9 MCH 32.5 MCHC 34.3 RDW 13.3 Plt Count 250 Neut % (Auto) 65.0 Lymph % (Auto) 11.8 L [place] % (Auto) 14.8 H Eos % (Auto) 7.8 H Baso % (Auto) 0.6 Neut # (Auto) 4300 Sodium 135 L Potassium 4.6 D Chloride 98 Carbon Dioxide 32 BUN 10 Creatinine 0.50 L Estimated GFR > 60.0 BUN/Creatinine Ratio 20.0 Glucose 102 Calcium 8.4 Total Bilirubin 0.3 AST 53 H ALT 37 Alkaline Phosphatase 58 Total Protein 5.6 L Albumin 2.8 L Globulin 2.8 Albumin/Globulin Ratio 1.0 Portable chest x-ray still pending from this morning. Assessment & Plan Plan: Assessment/Plan Narrative: 78-year-old female with pelvic fracture causing significant narcotic pain requirement and decreased mobility which is compromising pulmonary status. Will check chest x-ray as ordered to ensure she does not have significant pulmonary edema, but this is less likely. Hep-Lock IV now. Convert to oral antibiotics. Continue narcotic regimen. Discontinue Fuentes catheter and give a trial of spontaneous urination. If he is not able to do so and shows evidence of ongoing retention and she will have to have a Fuentes catheter for a few more days at least. Major issue remains the pulmonary status. Continue to wean oxygen and perform aggressive pulmonary toilet. Assist bowel function. Orders were written for such. I discussed all the above with the patient and the attending nurse today at the bedside. All questions were answered to her satisfaction, and she voiced understanding. I have also discussed the case with dispute coordinator. At this point she is not quite ready for discharge to [facility]. If she improves through the afternoon she may be able to transfer to [facility] as planned, but I anticipate she most likely will be here until at least tomorrow as an inpatient. Again, patient made aware. Quality VTE Deep Vein Thrombosis/Pulmonary Embolism Present on Admission: No
--- NOTE | 2018-02-03 10:30 | P.PN_ITS ---
Subjective Date Patient Seen: 02/03/18 Time Patient Seen: 10:24 Interval history: Pain better this morning. She received oral Dilaudid in conjunction with oral Percocet last evening. She has also received intravenous morphine within the last 24 hr. No subjective fever or chills. No chest pain. Denies any significant incisional pain at the left breast. Tolerating a diet without difficulty. No nausea or vomiting. Has had no bowel movement since admission. Passing some flatus intermittently. Denies shortness of breath but remains on 2 L nasal cannula oxygen which she does not normally required baseline. Fuentes catheter remains in place due to urinary retention likely secondary to narcotics and decreased mobility. Exam Vital Signs (past 8 hours): Vital Signs - 8 hr 3 02/03/18 05:00 02/03/18 05:10 02/03/18 07:05 Temperature 97 F L 98.3 F Pulse Rate 80 79 Respiratory Rate 24 16 Blood Pressure 117/59 L 128/55 H Pulse Oximetry 94 94 97 Pulse Oximetry 97 Oxygen Delivery Method Nasal Cannula Oxygen Flow Rate 2 Narrative Exam Narrative: Well-nourished well-developed female sitting comfortably in bedside chair in no acute distress. Alert oriented x3. Remains on nasal cannula oxygen. Has audible wheezing today but no crackles. No productive cough. She is able to perform incentive spirometry to approximately 1000 cc only. Left breast dressing clean, dry, and intact Abdomen soft, nondistended, nontender Extremities show no significant edema Objective Labs Result Diagrams: 02/03/18 04:57 02/03/18 04:57 Labs: Laboratory Results - last 24 hr 02/03/18 02/03/18 04:57 04:57 WBC 6.5 RBC 3.35 L Hgb 10.9 L Hct 31.8 L MCV 94.9 MCH 32.5 MCHC 34.3 RDW 13.3 Plt Count 250 Neut % (Auto) 65.0 Lymph % (Auto) 11.8 L [place] % (Auto) 14.8 H Eos % (Auto) 7.8 H Baso % (Auto) 0.6 Neut # (Auto) 4300 Sodium 135 L Potassium 4.6 D Chloride 98 Carbon Dioxide 32 BUN 10 Creatinine 0.50 L Estimated GFR > 60.0 BUN/Creatinine Ratio 20.0 Glucose 102 Calcium 8.4 Total Bilirubin 0.3 AST 53 H ALT 37 Alkaline Phosphatase 58 Total Protein 5.6 L Albumin 2.8 L Globulin 2.8 Albumin/Globulin Ratio 1.0 Portable chest x-ray still pending from this morning. Assessment & Plan Plan: Assessment/Plan Narrative: 78-year-old female with pelvic fracture causing significant narcotic pain requirement and decreased mobility which is compromising pulmonary status. Will check chest x-ray as ordered to ensure she does not have significant pulmonary edema, but this is less likely. Hep-Lock IV now. Convert to oral antibiotics. Continue narcotic regimen. Discontinue Fuentes catheter and give a trial of spontaneous urination. If he is not able to do so and shows evidence of ongoing retention and she will have to have a Fuentes catheter for a few more days at least. Major issue remains the pulmonary status. Continue to wean oxygen and perform aggressive pulmonary toilet. Assist bowel function. Orders were written for such. I discussed all the above with the patient and the attending nurse today at the bedside. All questions were answered to her satisfaction, and she voiced understanding. I have also discussed the case with agency service coordinator. At this point she is not quite ready for discharge to longterm facility. If she improves through the afternoon she may be able to transfer to [facility] as planned, but I anticipate she most likely will be here until at least tomorrow as an inpatient. Again, patient made aware. Quality VTE Deep Vein Thrombosis/Pulmonary Embolism Present on Admission: No
--- NOTE | 2018-02-03 12:37 | PC.NURSE ---
Addendum entered by Carrie Wright R.N. 02/03/18 13:06: PAIN/ - after family left and pt kiersten lunch, given 2mg po dilaudid for pain 4 on scale 0/10, back and l breast, quinn balloon deflated and dc'd w/o difficulty. Original Note: AM NOTE - alert, smiling, states no pain at rest, earlier dilaudid po providing adequate relief, 2l 94%, expir wheezes, sutures l breast intact, 4x4 c,d,i and wearing soft binder, discussed constipation and narcotics, given new order mom and prune juice 7 up this am with breakfast, enc freq use IS and pt demonstrated correct use to 1200, when 02 off, sat decr to about 88%, Dr. Dominguez in this am and cxr ordered and completed, ivf saline locked, phys therapy in and pt up slowly x1 person, ambul in room and to chair, sat short period and then req back to bed.
--- NOTE | 2018-02-03 13:20 | P.PN_ITS ---
Subjective Date Patient Seen: 02/03/18 Time Patient Seen: 13:14 Interval history: Patient feels like she is definitely better. Is getting a little more mobile although that is a slow process. Is no longer requiring oxygen at this point thinks the incentive spirometry is at helping with that and she is more mobile probably will continue to help also. The patient is still needing assist and very limited by pain and will need rehabilitation and balance therapy in correction along with watching low blood count of potassium and respiratory function. O the the turned off some medications and will be able get her away tomorrow. Exam Vital Signs (past 8 hours): Vital Signs - 8 hr 3 02/03/18 07:05 02/03/18 09:00 Temperature 98.3 F Pulse Rate 79 Respiratory Rate 16 Blood Pressure 128/55 H Pulse Oximetry 97 94 Pulse Oximetry 94 Oxygen Delivery Method Nasal Cannula Oxygen Flow Rate 2 Narrative Exam Narrative: Patient is sitting comfortably in bed talking comfortably and days and recheck and clear in her answers. Neck without significant mass or adenopathy. Lungs of a little bit crackly but I suspect more rhonchorous. Chest x-ray shows slight effusion but no discrete are clear infiltrate or mass. Does have a slightly elevated right hemidiaphragm. Cardiovascular shows regular rate and rhythm no significant murmur noted. Abdomen soft nontender no hepatosplenomegaly or mass. Sensation is intact and symmetrical. Motor limited by the side with the pelvic fracture secondary to pain. Objective Labs Result Diagrams: 02/03/18 04:57 02/03/18 04:57 Labs: Laboratory Results - last 24 hr 02/03/18 02/03/18 04:57 04:57 WBC 6.5 RBC 3.35 L Hgb 10.9 L Hct 31.8 L MCV 94.9 MCH 32.5 MCHC 34.3 RDW 13.3 Plt Count 250 Neut % (Auto) 65.0 Lymph % (Auto) 11.8 L [place] % (Auto) 14.8 H Eos % (Auto) 7.8 H Baso % (Auto) 0.6 Neut # (Auto) 4300 Sodium 135 L Potassium 4.6 D Chloride 98 Carbon Dioxide 32 BUN 10 Creatinine 0.50 L Estimated GFR > 60.0 BUN/Creatinine Ratio 20.0 Glucose 102 Calcium 8.4 Total Bilirubin 0.3 AST 53 H ALT 37 Alkaline Phosphatase 58 Total Protein 5.6 L Albumin 2.8 L Globulin 2.8 Albumin/Globulin Ratio 1.0 Assessment & Plan Plan: Assessment/Plan Narrative: Assessment 1. Pelvic fracture. Patient is slowly gradually mobilizing. I think this nondisplaced fractures of the superior and inferior rami will probably be stable and respond to gradual therapy. The patient also needs some balance rehabilitation while she is there a try to minimize risk for subsequent falls. Assessment 2. Patient's hypertension stable at this time and potassium is in good control. Assessment 3. Hypokalemia has resolved Assessment 4. Pain management patient requiring little less of the pain medication but appears very comfortable in yet not sedated and from the pain medications at this point. Will continue with current regimen Assessment 5. Hypothyroidism the patient appears euthyroid at this point recent labs have looked looked at her TSH. Assessment 6. Reflux disease. Stable at this point will continue on her usual medications for that. Assessment 7. Sleep issues continue with the patient for her trazodone and mirtazapine as she is currently. Quality VTE Deep Vein Thrombosis/Pulmonary Embolism Present on Admission: No
--- NOTE | 2018-02-03 13:53 | OT.IP.TRT ---
Current Diagnoses Sebaceous cyst (01/31/18) Other benign mammary dysplasias of left breast (01/31/18) Other specified fracture of unspecified pubis, initial encounter for closed fracture (01/31/18) Surgery Performed Operation Date: 01/30/18 15:15 Actual Procedures p Excision Breast Cyst(Left) - Carlin Mclean MD Occupational Therapy Treatment Note M2 OT-IP Current Condition Start: 01/31/18 15:17 Freq: Status: Active Protocol: Document 02/03/18 13:48 ADH (Rec: 02/03/18 13:53 ADH [id number]) Occupational Therapy Current Condition Current Condition Evaluation Date 02/03/18 Treatment Diagnosis 02/03/18 Diagnosis Onset Date 02/03/18 Weight Bearing Status Weight Bearing Status Weight Bear as Tolerated Allowed Weight Bearing Amount (enter % Per Dr. Proctor's addendum or #) (%) note after MRI result: pt WBAT on RLE. M3 OT- IP Subjective and Pain Start: 01/31/18 15:17 Freq: Status: Active Protocol: Document 02/03/18 13:48 ADH (Rec: 02/03/18 13:53 ADH [id number]) OT- Subjective Occupational Therapy Visit Type Type Treatment Note Visit Start Time 01:10 Visit Stop Time 01:45 Total Visit Minutes 35 OT Pain Assessment Pain When Pain Assessed During Mobility Pain Present Pain Present Denied Pain M4 OT- IP ADL's Start: 01/31/18 15:17 Freq: Status: Active Protocol: Document 02/03/18 13:48 ADH (Rec: 02/03/18 13:53 ADH [id number]) OT ADL-Grooming General Evaluation Grooming Ability Contact Guard Assistance Areas Needing Assistance Retrieving/Set-up of Grooming Items OT ADL-Dressing General Eval Lower Body Dressing Ability Contact Guard Assistance Areas Needing Assistance Underpants/Brief OT ADL-Toileting General Evaluation Toileting Ability Moderate Assistance Areas Needing Assistance Perform Perineal Hygiene Devices Toileting Assistive Devices Grab Bars Raised Toilet Seat Comments OT Toileting Comments Pt with soiled hands after attempt at posterior hygiene, needing mod A for efficiency and hygiene. M6 OT- IP Functional Cognition Start: 01/31/18 15:17 Freq: Status: Active Protocol: Document 02/03/18 13:48 ADH (Rec: 02/03/18 13:53 ADH [id number]) Cognitive Factors Limiting Selfcare Function Cognitive Ability Level of Alertness Alert Patient Orientation Name Age Birthday Month Date Year Day of Week Place Situation Attention Span Ability Capable of Focused Attention Capable of Sustained Attention Cognitive Comments Cognitive Assessment Comments pt distractible and tangential , impulsive throughout OT- Vision and Hearing OT- Hearing Assessment OT- Hearing Assessment WFL OT- Vision Assessment Visual Acuity Glasses All The Time M7 OT- IP Mobility and Balance Start: 01/31/18 15:17 Freq: Status: Active Protocol: Document 02/03/18 13:48 ADH (Rec: 02/03/18 13:53 [facility] [id number]) OT- Bed Mobility Assessment Supine to Sit Supine to Sit Assist Independent Sit to Supine Sit to Supine Assist Independent Scooting Scooting to Edge of Bed Independent Scooting Up and Down in Bed Independent OT-Transfer Assessment Sit to and From Stand Sit to and from Stand Contact Guard Assistance Transfers Transfer Ability Standby Assistance Technique Transfer Destination Bed Toilet Transfer Technique Stand Step Pivot Devices Transfer Assistive Devices Gait Belt Front Wheeled Walker OT- Gait Assessment Gait Gait Assistance Required: Standby Assistance Assistive Devices Assistive Device Gait Belt Front Wheeled Walker M8 OT- IP Objective Assessments Start: 01/31/18 15:17 Freq: Status: Active Protocol: Document 02/03/18 13:48 ADH (Rec: 02/03/18 13:53 ADH [id number]) OT Gross Range of Motion Upper Extremity Range of Motion Assessment Within Functional Limits OT Strength Upper Extremity Strength Assessment Within Functional Limits OT- Coordination Assessment Upper Extremity Finger Tapping Test Within Functional Limits M9 OT- IP Assessment and Plan Start: 01/31/18 15:17 Freq: Status: Active Protocol: Document 02/03/18 13:48 ADH (Rec: 02/03/18 13:53 [facility] [id number]) OT Summary Assessment and Plan Potential Rehabilitation Potential Excellent Analytic Complexity at Evaluation Low Summary OT Impairments Functional Cognition Assessment Summary Pt with good potential for return to PLOF, with pain management and firm positive encouragement for OOB activities and therapy participation. Pt appropriate for SNF d/t continues to present well below baseline, pt not safe to d/c home alone at this time. Goals Toileting Goal Independent Bathing Goal Minimal Assistance Toilet Transfer Goal Standby Assistance Treatment Plan OT Treatment Plan ADL Training Patient/Family Education Discharge Planning Discharge Recommendations OT Discharge Recommendations SNF Rehab
[2018-02-03] MEDS: DOXEPIN 25 MG CAPSULE PO (20:30)
[2018-02-03] MEDS: LATANOPROST 0.005% OPHTH 2.5 ML 1 DROPS EYE-BOTH (20:30)
[2018-02-03] MEDS: MIRTAZAPINE 15 MG TABLET 30 MG PO (20:30)
[2018-02-03] MEDS: TRAZODONE 100 MG TABLET PO (20:31)
[2018-02-03] MEDS: FLUTICASONE 120 SPRAY/16 GM SPRAY.SUSP NASAL (20:32)
[2018-02-04 00:18] VITALS: BP 163/72; PULSE 92; RESP 17; TEMP 36.6; O2SAT 95
[2018-02-04 00:30] VITALS: O2SAT 95
[2018-02-04] MEDS: HYDROMORPHONE 2 MG TABLET PO ×2 (01:04→10:31)
[2018-02-04] MEDS: ACETAMINOPHEN 325 MG TABLET 650 MG PO (04:27)
[2018-02-04 04:29] VITALS: BP 131/83; PULSE 86; RESP 21; TEMP 36.4; O2SAT 94
[2018-02-04 05:26] VITALS: O2SAT 94
[2018-02-04] MEDS: OXYCODONE/ACETAMINOPHEN 5/325 TABLET 2 TAB PO (06:16)
[2018-02-04] MEDS: LEVOTHYROXINE 100 MCG TABLET PO (06:52)
--- NOTE | 2018-02-04 07:57 | PM.PN.1 ---
Subjective Date Patient Seen: 02/04/18 Time Patient Seen: 07:57 Interval history: Patient is still having moderate amount of pain. Still having difficulty walking much but can get up and use the commode. Feeling like pain is adequately controlled just difficult. No other new changes or complaints. No chest pain. No shortness of breath. Exam Vital Signs (past 8 hours): Vital Signs - 8 hr 02/04/18 00:18 02/04/18 00:30 02/04/18 04:29 Temperature 97.8 F 97.6 F Pulse Rate 92 H 86 Respiratory Rate 17 21 Blood Pressure 163/72 H 131/83 H Pulse Oximetry 95 95 94 02/04/18 05:26 Temperature Pulse Rate Respiratory Rate Blood Pressure Pulse Oximetry 94 Pulse Oximetry 94 Oxygen Delivery Method Room Air Oxygen Flow Rate 0 Narrative Exam Narrative: Alert elderly female lying in bed in no acute distress. Neck without significant adenopathy JVD. Lungs with slight basilar crackles. Heart is regular rate and rhythm without murmur. Abdomen is soft positive bowel sounds nontender. Extremities without edema. Neurologic exam she is sensing both legs. No other change. Objective Labs Result Diagrams: 02/03/18 04:57 02/03/18 04:57 Assessment & Plan Plan: Assessment/Plan Narrative: Pelvic fracture. As per surgeons. Seems to be mobilizing. I suspect this is going to take some time. Certainly be a while before she is mobile without assistance. Pain managed at this time appears to be adequate. Orthopedics do not feel as if anything needs to be further done. Will follow as outpatient. Hypertension. Stable at this time. Hypokalemia. Stable. Dr. Torres will check his outpatient 2 weeks. Hypothyroidism. Stable. Followed by Dr. Torres as outpatient. Reflux. Stable. Continue current medicines. Insomnia. Continue trazodone and mirtazapine. Disposition. Discharge as per surgeons. Dr. Torres will be happy to follow as primary at senior living. Follow up with Dr. Torres in 2-3 weeks. Surgeons as per their discretion. Quality VTE Deep Vein Thrombosis/Pulmonary Embolism Present on Admission: No
--- NOTE | 2018-02-04 08:02 | P.PN_ITS ---
Subjective Date Patient Seen: 02/04/18 Time Patient Seen: 07:57 Interval history: Patient is still having moderate amount of pain. Still having difficulty walking much but can get up and use the commode. Feeling like pain is adequately controlled just difficult. No other new changes or complaints. No chest pain. No shortness of breath. Exam Vital Signs (past 8 hours): Vital Signs - 8 hr 3 02/04/18 00:18 02/04/18 00:30 02/04/18 04:29 Temperature 97.8 F 97.6 F Pulse Rate 92 H 86 Respiratory Rate 17 21 Blood Pressure 163/72 H 131/83 H Pulse Oximetry 95 95 94 3 02/04/18 05:26 Temperature Pulse Rate Respiratory Rate Blood Pressure Pulse Oximetry 94 Pulse Oximetry 94 Oxygen Delivery Method Room Air Oxygen Flow Rate 0 Narrative Exam Narrative: Alert elderly female lying in bed in no acute distress. Neck without significant adenopathy JVD. Lungs with slight basilar crackles. Heart is regular rate and rhythm without murmur. Abdomen is soft positive bowel sounds nontender. Extremities without edema. Neurologic exam she is sensing both legs. No other change. Objective Labs Result Diagrams: 02/03/18 04:57 02/03/18 04:57 Assessment & Plan Plan: Assessment/Plan Narrative: Pelvic fracture. As per surgeons. Seems to be mobilizing. I suspect this is going to take some time. Certainly be a while before she is mobile without assistance. Pain managed at this time appears to be adequate. Orthopedics do not feel as if anything needs to be further done. Will follow as outpatient. Hypertension. Stable at this time. Hypokalemia. Stable. Dr. Torres will check his outpatient 2 weeks. Hypothyroidism. Stable. Followed by Dr. Torres as outpatient. Reflux. Stable. Continue current medicines. Insomnia. Continue trazodone and mirtazapine. Disposition. Discharge as per surgeons. Dr[facility] Follow up with Dr. Torres in 2-3 weeks. Surgeons as per their discretion. Quality VTE Deep Vein Thrombosis/Pulmonary Embolism Present on Admission: No
[2018-02-04 09:00] VITALS: O2SAT 92
[2018-02-04] MEDS: cephALEXin 250 MG CAPSULE PO (09:04)
[2018-02-04] MEDS: MELOXICAM 7.5 MG TABLET PO (09:05)
[2018-02-04] MEDS: ENOXAPARIN 40 MG/0.4 ML SYRINGE SUBCUT (09:05)
[2018-02-04] MEDS: GABAPENTIN 300 MG CAPSULE PO (09:05)
[2018-02-04] MEDS: hydroCHLOROthiazide 25 MG TABLET 50 MG PO (09:05)
[2018-02-04] MEDS: PANTOPRAZOLE 40 MG TABLET PO (09:05)
[2018-02-04 09:15] VITALS: O2SAT 94
--- NOTE | 2018-02-04 11:13 | CM.DPC ---
DCP/continued: Reviewed chart. Received notification from MD that patient okay to transfer to SNF today. Placed call to Gabriela at [facility] she confirms that they can accept today. Orders and PASRR faxed to [facility]. Patient scheduled to be picked up at approximately 11:45AM. RN notified. Met with patient to confirm d/c plan. Family at bedside. Patient aware and agreeable to plan. P: [facility] today. 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 JOSEMANUEL Baugh
--- NOTE | 2018-02-04 11:24 | PT.IPTN ---
Current Diagnoses Sebaceous cyst (01/31/18) Other benign mammary dysplasias of left breast (01/31/18) Other specified fracture of unspecified pubis, initial encounter for closed fracture (01/31/18) Surgery Performed Operation Date: 01/30/18 15:15 Actual Procedures p Excision Breast Cyst(Left) - Carlin Mclean MD Physical Therapy Treatment Note M2 PT-IP Current Condition Start: 01/31/18 12:22 Freq: NEEDED Status: Active Protocol: Document 02/04/18 11:19 AB (Rec: 02/04/18 11:24 AB [id number]) Physical Therapy Current Condition Current Condition Evaluation Date 01/31/18 Treatment Diagnosis s/p L lumpectomy, pubis fx due to fall, impaired gait Onset Date 01/30/18 Weight Bearing Status Weight Bearing Status Weight Bear as Tolerated Allowed Weight Bearing Amount (enter % Per Dr. Proctor's addendum or #) (%) note after MRI result: pt WBAT on RLE. M3 PT-IP Subjective Start: 01/31/18 12:22 Freq: NEEDED Status: Active Protocol: Document 02/04/18 11:19 AB (Rec: 02/04/18 11:24 AB [id number]) Subjective Physical Therapy Visit Type Type Treatment Note Visit Start Time 09:53 Visit Stop Time 10:05 Total Visit Minutes 13 Number of TRAFFIC ROUTING ENGINEER Visits 1 Physical Therapy Visit Comments Patient Comments I feel ok but not 100% Therapy Pain Assessment Pain When Pain Assessed During Mobility Pain Present Pain Present Pain Reported Location Rt Hip Scale Used pain scale not stated M4 PT-IP Mobility and Gait Start: 01/31/18 12:22 Freq: NEEDED Status: Active Protocol: Document 02/04/18 11:19 AB (Rec: 02/04/18 11:24 AB [id number]) PT-Transfer Assessment Sit to and From Stand Sit to and from Stand Minimal Assistance Equipment Transfer Assistive Device Gait Belt Front Wheeled Walker Gait Assessment Gait Gait Assistance Required: Minimum Assistance Distance (Feet) (feet) 40 Able to Maintain Weight Bearing Status Yes During Gait Assistive Devices Assistive Device Gait Belt Front Wheeled Walker Orthotic/Prosthetic Devices or Brace: No Gait Deviations General Gait Pattern Antalgic Decreased Stride Length Decreased Feet Clearance Factors Limiting Gait Function Factors Limiting Gait Function Decreased Activity Tolerance Decreased Strength Pain Poor Balance Poor Safety Awareness PT-Balance Assessment Standing Balance and Reactions Static Standing Balance Ability Fair Dynamic Standing Balance Ability Fair Device Used FWW M5 PT-IP Objective Assessments Start: 01/31/18 12:22 Freq: NEEDED Status: Active Protocol: Document 01/31/18 12:23 AB (Rec: 01/31/18 12:35 AB [id number]) Orientation Orientation/Cognition Level of Alertness Alert Orientation Name Age Birthday Month Date Year Day of Week Place Situation Safety Awareness Decreased Safety Awareness Gross Range of Motion Lower Extremity ROM Assessment Within Functional Limits Strength Lower Extremity Strength Assessment Bilaterally Impaired Comments Strength Comments RLE weaker than LLE: 4-/5 LLE : 4/5 M6 PT-IP Treatment Start: 01/31/18 12:22 Freq: NEEDED Status: Active Protocol: Document 02/03/18 09:47 DLM (Rec: 02/03/18 10:26 DLM [id number]) Physical Therapy Treatment Exercises Exercises Ankle Pumps Gluteal Sets Seated Knee Flexion/Extension Education Education Provided Weight Bearing Status Safety M7 PT-IP Assessment and Plan Start: 01/31/18 12:22 Freq: NEEDED Status: Active Protocol: Document 02/04/18 11:19 AB (Rec: 02/04/18 11:24 AB [id number]) PT Summary Assessment and Plan Potential Rehabilitation Potential Good Summary Impairments Pain ROM Strength Balance Cognition Bed Mobility Transfers Gait Activity Tolerance Progress Towards Goals Slow Progress due to Pain Slow Progress due to Medical Issues Assessment Summary pt progressing slowly but continues to require assist with mobility and has decrease activity tolerance affecting independence. pt will require SNF rehab to improve function . Goals Bed Mobility Goal Contact Guard Assistance Transfer Goal Contact Guard Assistance Front Wheeled Walker Gait Goal Contact Guard Assistance Front Wheel Walker Gait Distance 100 Other Goals up/down 15 steps with L rail ascending. Days to Meet Goals 3 Frequency of Treatment Frequency Of Treatment Twice a Day Treatment Plan Physical Therapy Treatment Plan Bed Mobility Training Transfer Training Gait Training Other Recommendations and Next Treatment ambulation Focus Recommendations To Nursing Amount of Assist Needed 1 Person Assist Discharge Recommendations PT Discharge Recommendations SNF Rehab
--- NOTE | 2018-02-04 11:26 | PT.IPTN ---
Current Diagnoses Sebaceous cyst (01/31/18) Other benign mammary dysplasias of left breast (01/31/18) Other specified fracture of unspecified pubis, initial encounter for closed fracture (01/31/18) Surgery Performed Operation Date: 01/30/18 15:15 Actual Procedures p Excision Breast Cyst(Left) - Carlin Mclean MD Physical Therapy Treatment Note M2 PT-IP Current Condition Start: 01/31/18 12:22 Freq: NEEDED Status: Active Protocol: Document 02/04/18 11:19 AB (Rec: 02/04/18 11:24 AB [id number]) Physical Therapy Current Condition Current Condition Evaluation Date 01/31/18 Treatment Diagnosis s/p L lumpectomy, pubis fx due to fall, impaired gait Onset Date 01/30/18 Weight Bearing Status Weight Bearing Status Weight Bear as Tolerated Allowed Weight Bearing Amount (enter % Per Dr. Proctor's addendum or #) (%) note after MRI result: pt WBAT on RLE. M3 PT-IP Subjective Start: 01/31/18 12:22 Freq: NEEDED Status: Active Protocol: Document 02/04/18 11:19 AB (Rec: 02/04/18 11:24 AB [id number]) Subjective Physical Therapy Visit Type Type Treatment Note Visit Start Time 09:53 Visit Stop Time 10:05 Total Visit Minutes 13 Number of CLERICAL WAREHOUSE WORKER Visits 1 Physical Therapy Visit Comments Patient Comments I feel ok but not 100% Therapy Pain Assessment Pain When Pain Assessed During Mobility Pain Present Pain Present Pain Reported Location Rt Hip Scale Used pain scale not stated M4 PT-IP Mobility and Gait Start: 01/31/18 12:22 Freq: NEEDED Status: Active Protocol: Document 02/04/18 11:19 AB (Rec: 02/04/18 11:24 AB [id number]) PT-Transfer Assessment Sit to and From Stand Sit to and from Stand Minimal Assistance Equipment Transfer Assistive Device Gait Belt Front Wheeled Walker Gait Assessment Gait Gait Assistance Required: Minimum Assistance Distance (Feet) (feet) 24 Able to Maintain Weight Bearing Status Yes During Gait Assistive Devices Assistive Device Gait Belt Front Wheeled Walker Orthotic/Prosthetic Devices or Brace: No Gait Deviations General Gait Pattern Antalgic Decreased Stride Length Decreased Feet Clearance Factors Limiting Gait Function Factors Limiting Gait Function Decreased Activity Tolerance Decreased Strength Pain Poor Balance Poor Safety Awareness PT-Balance Assessment Standing Balance and Reactions Static Standing Balance Ability Fair Dynamic Standing Balance Ability Fair Device Used FWW M5 PT-IP Objective Assessments Start: 01/31/18 12:22 Freq: NEEDED Status: Active Protocol: Document 01/31/18 12:23 AB (Rec: 01/31/18 12:35 AB [id number]) Orientation Orientation/Cognition Level of Alertness Alert Orientation Name Age Birthday Month Date Year Day of Week Place Situation Safety Awareness Decreased Safety Awareness Gross Range of Motion Lower Extremity ROM Assessment Within Functional Limits Strength Lower Extremity Strength Assessment Bilaterally Impaired Comments Strength Comments RLE weaker than LLE: 4-/5 LLE : 4/5 M6 PT-IP Treatment Start: 01/31/18 12:22 Freq: NEEDED Status: Active Protocol: Document 02/03/18 09:47 DLM (Rec: 02/03/18 10:26 DLM [id number]) Physical Therapy Treatment Exercises Exercises Ankle Pumps Gluteal Sets Seated Knee Flexion/Extension Education Education Provided Weight Bearing Status Safety M7 PT-IP Assessment and Plan Start: 01/31/18 12:22 Freq: NEEDED Status: Active Protocol: Document 02/04/18 11:19 AB (Rec: 02/04/18 11:24 AB [id number]) PT Summary Assessment and Plan Potential Rehabilitation Potential Good Summary Impairments Pain ROM Strength Balance Cognition Bed Mobility Transfers Gait Activity Tolerance Progress Towards Goals Slow Progress due to Pain Slow Progress due to Medical Issues Assessment Summary pt progressing slowly but continues to require assist with mobility and has decrease activity tolerance affecting independence. pt will require SNF rehab to improve function . Goals Bed Mobility Goal Contact Guard Assistance Transfer Goal Contact Guard Assistance Front Wheeled Walker Gait Goal Contact Guard Assistance Front Wheel Walker Gait Distance 100 Other Goals up/down 15 steps with L rail ascending. Days to Meet Goals 3 Frequency of Treatment Frequency Of Treatment Twice a Day Treatment Plan Physical Therapy Treatment Plan Bed Mobility Training Transfer Training Gait Training Other Recommendations and Next Treatment ambulation Focus Recommendations To Nursing Amount of Assist Needed 1 Person Assist Discharge Recommendations PT Discharge Recommendations SNF Rehab
--- NOTE | 2018-02-04 11:48 | P.DS_ITS ---
History of Present Illness Date Patient Seen: 02/04/18 Time Patient Seen: 10:30 Chief complaint: excision left breast Discharge Providers Date of admission: 01/31/18 10:22 Primary care physician: Easton Torres MD Consults: 01/30/18 20:50 Consult to Discharge Planning Routine Comment: Home health nursing. Assisted-living placement Consult to Physical Therapy Evaluate & Treat Comment: Recent fall. Chronic back pain. Physician Instructions: Evaluate and Treat Consult to Internal Audit Consultant Routine Comment: Benefit from placement. Very resistant 01/31/18 11:40 Consult to Occupational Therapy Evaluate & Treat Comment: Physician Instructions: Evaluate and treat 01/31/18 12:44 Consult to Orthopedic Surgery Routine Comment: Consulting Provider: Sarina Proctor Reason for consultation: hip pain after fall. cannot walk/support weight Has provider been notified: Yes 01/31/18 13:04 Consult to Physician Routine Comment: Consulting Provider: Easton Torres Reason for consultation: dementia, htn, placement issues Has provider been notified: Yes Discharge provider: Cralin Mclean MD Discharge Date: 02/04/18 Summary Discharge Diagnosis: Neglected chronic sebaceous cyst left breast with acute inflammation. Fall at home resulting in acute fractures of the pubic superior and inferior pubic ramus nondisplaced as well as a right sacral insufficiency fracture and a small right acetabular tear with small right hip effusion. Chronic essential hypertension Dementia chronic moderate. Type not elucidated. Obesity with a BMI of 32.1 kilograms/meter squared Acute inability to bear weight right leg/hip secondary to acute fractures. Acute shortness of breath cause uncertain. Acute urinary retention resolved. At transfer. Hospital Course: Patient was seen in the ER from whence she was discharged and brought to the operating room for a scheduled procedure. Large sebaceous cyst on her left breast was removed and sutured closed over a drain. This was acutely inflamed and the she was begun on IV antibiotics postprocedure. The patient could not ambulate after falling at home and therefore was admitted and further evaluated. She was seen by Dr. Proctor of Orthopedics who ordered an MRI which showed multiple fractures listed above. These were all acute. The patient was begun on PT and placed in a weight-bearing as tolerated status. She had walk with a walker. She had some urinary retention apparently and required a Fuentes which resolved. The Fuentes was removed. She also had some unusual shortness of breath but did not del castillo out to anything specific. Chest x- ray was not remarkable. She was ultimately discharged on oral medication on a general diet to [facility] and will follow up in the office for suture removal of her right breast biopsy. Status at Discharge Cognitive/behavioral status at discharge: Admit Karl line which is demented. Functional status at discharge: uses cane/walker (With assistance due to fracture) Overall status at discharge: patient is not back to baseline (Requires shelter facility the and continued physical therapy.) Time Spent with Patient Less than 30 minutes Exam Vital Signs (past 8 hours): Vital Signs - 8 hr 3 02/04/18 04:29 02/04/18 05:26 02/04/18 09:00 Temperature 97.6 F Pulse Rate 86 Respiratory Rate 21 Blood Pressure 131/83 H Pulse Oximetry 94 94 92 3 02/04/18 09:15 Temperature Pulse Rate Respiratory Rate Blood Pressure Pulse Oximetry 94 Pulse Oximetry 94 Oxygen Delivery Method Room Air Oxygen Flow Rate 0 Narrative Exam Narrative: Lungs clear heart regular rate and rhythm left breast no cellulitis. Normal postoperative changes. Closure intact. Objective Labs Result Diagrams: 02/03/18 04:57 02/03/18 04:57 Discharge Plan Discharge Plan Patient Disposition: SNF Transfer to: [facility] Under care of provider: Dr. Torres/facility physician Transportation: Wheelchair Consult as needed: Mental health Discharge comment: The patient has acute right pelvic ramus fracture/sacral fracture. Had a removal of a large neglected sebaceous cyst on left breast. The need to see her back Saturday at 10:15 a.m. for follow-up and suture removal of her breast mass. I certify the postop hospital shelter care is medically necessary on a continuing basis for any conditions for which he/ she received care during this hospitalization.: Yes The receiving facility has agreed to accept transfer and provide medical treatment.: Yes Discharge Med Rec/Prescriptions Prescriptions: New oxycodone-acetaminophen [Percocet] 5-325 mg tablet See Label Instructions .ROUTE .COMPLEX PRN (Reason: pain) Qty: 20 RF: 0 Continue hydrochlorothiazide 50 MG tablet 50 mg PO QDAY Qty: 0 RF: 0 doxepin 25 mg Capsule 25 mg PO BEDTIME RF: 0 sucralfate 1 gram Tablet 1 g PO QID RF: 0 omeprazole 20 mg Capsule,Delayed Release(Dr/Ec) 20 mg PO DAILY RF: 0 cholecalciferol (vitamin D3) [Vitamin D3] 5,000 unit Tablet 5,000 unit PO DAILY RF: 0 ondansetron HCl 8 mg tablet 8 mg PO Q8H PRN (Reason: Nausea) RF: 0 meclizine 25 mg Tablet 25 mg PO Q8H PRN (Reason: Dizziness) RF: 0 latanoprost 0.005 % drops 1 drp ophthalmic (eye) BEDTIME RF: 0 trazodone 50 mg tablet 100 mg PO BEDTIME PRN (Reason: Sleep) RF: 0 meloxicam 7.5 mg tablet 1 tab PO DAILY RF: 0 levothyroxine 100 mcg tablet 100 mcg PO DAILY RF: 0 mirtazapine 30 mg tablet 1 tab PO BEDTIME RF: 0 fluticasone 50 mcg/actuation spray,suspension 1 spray Intranasal DAILY RF: 0 Discontinued hydrocodone-acetaminophen 5-325 mg Tablet 1 - 2 tab PO DAILY PRN (Reason: Pain (Scale Score 1-3)) RF: 0 Follow up/Referrals: Easton Torres MD [Primary Care Provider] - Carlin Mclean MD [Physician] - 02/12/18 10:15 am (Postop for suture removal) Discharge Health Status Brief summary of current health status: Patient is a woman with a history of breast cancer. She fell recently and fractured her pubic ramus. Recommendations are for physical therapy, weight-bearing as tolerated. She had a breast biopsy with sutures in place that need to be removed. An appointment has been made. She has dementia. It his her family's 0 desire that she be placed in some form of either assisted living or nursing facility. Patient is resistant to that. Multidrug resistant organism: No MDRO MDRO Verified by culture: No Precautions: [place] Provider Discharge Instructions Diet: Diet as Tolerated Food texture: Regular Activity: Weight bearing As tolerated given her pelvic fracture. Walk with assistance of a walker (this is new) Wound Care Report to your healthcare provider any signs of infection, such as:: unusual drainage Dressing: Can keep dry gauze over wound. Report if the breast wound becomes red. [facility] Reason for rehabilitation: Other Rehab type: Physical therapy and Occupational therapy Restrictions to mobility: Recent pubic ramus fracture nondisplaced. Visit Report/Discharge Packet Stand Alone Forms: Surgery Discharge Discharge Data Primary Care Provider: Easton Torres Attending Provider: Carlin Mclean Admit Date/Time: 01/31/18 10:22 Quality VTE Deep Vein Thrombosis/Pulmonary Embolism Present on Admission: No
--- NOTE | 2018-02-04 12:01 | PC.NURSE ---
Patient tolerating pain in AM reporting 3/10 pain. After working with PT and up to the BR 2x, pt reporting 7/10 pain. Administered 1 tab (2mg) Dilaudid. Patient reassessed and reporting 3/10 pain and tolerating well. Granddaughter and great-grandkids at bedside. Patient all packed up, IV removed, and packet provided to [facility] staff.
--- NOTE | 2018-02-04 12:04 | OT.IP.TRT ---
Current Diagnoses Sebaceous cyst (01/31/18) Other benign mammary dysplasias of left breast (01/31/18) Other specified fracture of unspecified pubis, initial encounter for closed fracture (01/31/18) Surgery Performed Operation Date: 01/30/18 15:15 Actual Procedures p Excision Breast Cyst(Left) - Carlin Mclean MD Occupational Therapy Treatment Note M2 OT-IP Current Condition Start: 01/31/18 15:17 Freq: Status: Active Protocol: Document 02/03/18 13:48 ADH (Rec: 02/03/18 13:53 ADH [id number]) Occupational Therapy Current Condition Current Condition Evaluation Date 02/03/18 Treatment Diagnosis 02/03/18 Diagnosis Onset Date 02/03/18 Weight Bearing Status Weight Bearing Status Weight Bear as Tolerated Allowed Weight Bearing Amount (enter % Per Dr. Proctor's addendum or #) (%) note after MRI result: pt WBAT on RLE. M3 OT- IP Subjective and Pain Start: 01/31/18 15:17 Freq: Status: Active Protocol: Document 02/04/18 11:55 PJM (Rec: 02/04/18 12:04 PJM [id number]) OT- Subjective Occupational Therapy Visit Type Type Treatment Note Visit Start Time 11:20 Visit Stop Time 11:34 Total Visit Minutes 14 Notes Pt's granddaughter reports that pt is leaving for [facility] at 1145 today. Occupational Therapy Visit Comments Patient Comments I don't have any pain when I am sitting down. Patient/Caregiver Goals to go home OT Pain Assessment Pain When Pain Assessed After Treatment Pain Present Pain Present Pain Reported Location Rt Hip Intensity 4 Scale Used Numeric (1 - 10) Description Aching Pain Behaviors Guarding Management Techniques Re-positioning M4 OT- IP ADL's Start: 01/31/18 15:17 Freq: Status: Active Protocol: Document 02/04/18 11:55 PJM (Rec: 02/04/18 12:04 PJM [id number]) OT ADL-Grooming General Evaluation Grooming Ability Standby Assistance Areas Needing Assistance Retrieving/Set-up of Grooming Items Combing/Brushing Hair Face Washing Comments OT Grooming Comments Pt leaning heavily on sink; stood 4-5 min. Needs min cues to problem solve unfamiliar sink set up. OT ADL-Oral Care General Eval Oral Care Ability Standby Assistance Areas of Assistance Brushing Teeth Devices Oral Care Devices Toothbrush OT ADL-Toileting General Evaluation Toileting Ability Standby Assistance Areas Needing Assistance Manage Clothing Perform Perineal Hygiene Devices Toileting Assistive Devices Raised Toilet Seat M6 OT- IP Functional Cognition Start: 01/31/18 15:17 Freq: Status: Active Protocol: Document 02/03/18 13:48 ADH (Rec: 02/03/18 13:53 ADH [id number]) Cognitive Factors Limiting Selfcare Function Cognitive Ability Level of Alertness Alert Patient Orientation Name Age Birthday Month Date Year Day of Week Place Situation Attention Span Ability Capable of Focused Attention Capable of Sustained Attention Cognitive Comments Cognitive Assessment Comments pt distractible and tangential , impulsive throughout OT- Vision and Hearing OT- Hearing Assessment OT- Hearing Assessment WFL OT- Vision Assessment Visual Acuity Glasses All The Time M7 OT- IP Mobility and Balance Start: 01/31/18 15:17 Freq: Status: Active Protocol: Document 02/04/18 11:55 PJM (Rec: 02/04/18 12:04 PJM [id number]) OT-Transfer Assessment Sit to and From Stand Sit to and from Stand Standby Assistance Transfers Transfer Ability Contact Guard Assistance Technique Transfer Destination Toilet Transfer Technique Stand Step Pivot Devices Transfer Assistive Devices Gait Belt Front Wheeled Walker Comments Mobility Comments Pt moves quickly. Needs min cues for FWW use in tight spaces. OT- Gait Assessment Gait Gait Assistance Required: Contact Guard Assist Assistive Devices Assistive Device Gait Belt Front Wheeled Walker Comments Gait Ability Comments Pt walked about 20 ft to sink then into bathroom and back to chair with FWW. Needs min cues for gait sequence and to keep FWW close. OT- Balance Assessment Sitting Balance and Reactions Static Sitting Balance Ability Good Standing Balance and Reactions Static Standing Balance Ability Good M8 OT- IP Objective Assessments Start: 01/31/18 15:17 Freq: Status: Active Protocol: Document 02/03/18 13:48 ADH (Rec: 02/03/18 13:53 ADH [id number]) OT Gross Range of Motion Upper Extremity Range of Motion Assessment Within Functional Limits OT Strength Upper Extremity Strength Assessment Within Functional Limits OT- Coordination Assessment Upper Extremity Finger Tapping Test Within Functional Limits M9 OT- IP Assessment and Plan Start: 01/31/18 15:17 Freq: Status: Active Protocol: Document 02/04/18 11:55 PJM (Rec: 02/04/18 12:04 PJM [id number]) OT Summary Assessment and Plan Potential Rehabilitation Potential Good Summary OT Impairments Pain Balance Functional Mobility Grooming Dressing Toileting Bathing Toilet Transfers Shower Transfers Progress Towards Goals Progressing Toward Goals Assessment Summary Pt making daily progress with functional mobility and transfers. She tends to move quickly with some decreased safety awareness and needs verbal cues for FWW technique. Pt will benefit from trial of lower body dressing equipment to increase independence with R hip pain. Pt not safe to return home alone and is below her baseline level of function. Pt plans to d/c to SNF for further rehab services today. Goals Toileting Goal Independent Bathing Goal Minimal Assistance Toilet Transfer Goal Standby Assistance Discharge Recommendations OT Discharge Recommendations SNF Rehab
== END 2018-02-04 12:11 | DRG 584 ==
LOC: OR 11:53
PROVIDERS: Admitting Provider Specialist; Family Provider Family Medicine; PCP Family Medicine; Visit Provider Specialist
PROC: 0HBU0ZZ Excision of Left Breast, Open Approach (ICD-10-PCS; principal; 2018-01-30 15:15)
DX: N60.82 Other benign mammary dysplasias of left breast (principal); S32.511A Fracture of superior rim of right pubis, initial encounter for closed fracture; S32.10XA Unspecified fracture of sacrum, initial encounter for closed fracture; J98.11 Atelectasis; W19.XXXA Unspecified fall, initial encounter; Z91.81 History of falling; Y93.9 Activity, unspecified; Y92.009 Unspecified place in unspecified non-institutional (private) residence as the place of occurrence of the external cause; F03.90 Unspecified dementia, unspecified severity, without behavioral disturbance, psychotic disturbance, mood disturbance, and anxiety; E87.6 Hypokalemia; E03.9 Hypothyroidism, unspecified; F41.9 Anxiety disorder, unspecified; I10 Essential (primary) hypertension; R33.9 Retention of urine, unspecified; R09.02 Hypoxemia; K21.9 Gastro-esophageal reflux disease without esophagitis; S73.191A Other sprain of right hip, initial encounter
CPT/HCPCS: 19120; 36415; 36591; 36592; 71045; 72100; 73502; 73721; 80048; 80053; 85025; 93005; 94760; 97110; 97116; 97162; 97530; 97535; 99282; J0690; J1650; J2250; J2270; J2704; J3010; J3480

== ENCOUNTER → 2018-02-05 16:18 | Outpatient (REF) | payer SELFPAY ==
[2018-01-30 20:30] VITALS: BMI 32.1
[2018-02-05 16:30] LABS: Add Manual Diff / Slide Review NO; Basophils Percent Auto 0.6 % (0-2); Eosinophils Percent Auto 4.3 % (2-4); Hematocrit 36.1 % (36-46); Hemoglobin 12.2 g/dL (12.0-16.0); Lymphocytes Percent Auto 10.1 % (25-40); Mean Corpuscular HGB Conc 33.8 % (30-36); Mean Corpuscular Hemoglobin 32.2 PG (26-34); Mean Corpuscular Volume 95.3 fL (80-100); Monocytes Percent Auto 11.7 % (3-14); Neutrophils Absolute Auto 7400 /uL (3000-5900); Neutrophils Percent Auto 73.3 % (50-75); Platelet Count 402 X10^3/uL (150-400); Red Blood Cell Count 3.79 X10^6/uL (4.0-5.2); Red Cell Distribution Width 13.6 % (11.6-14.8); White Blood Cell Count 10.2 X10^3/uL (4.5-11.0)
== END ==
LOC: LAB 16:18
PROVIDERS: Family Provider Family Medicine; PCP Family Medicine; Visit Provider Family Medicine
DX: R06.00 Dyspnea, unspecified (principal)
CPT/HCPCS: 85025

== ENCOUNTER → 2018-02-20 15:30 | Outpatient (CLI) | payer MEDICARE, SELFPAY ==
[2018-01-30 20:30] VITALS: BMI 32.1
--- NOTE | 2018-02-20 | DI.RAD.S_ITS ---
PROCEDURE: XR HIP W PEL IF DONE RT 2V INDICATIONS: hip pain, recent fall/frcatures TECHNIQUE: AP pelvis with lateral view(s) of the right hip(s). COMPARISON: [facility], , XR HIP W PEL IF DONE RT 2V, 01/30/2018, 13:23. FINDINGS: Bones: No fractures or dislocations. Pelvic ring appears intact. No suspicious bony lesions. Mild symmetric hip joint degeneration and degenerative disc and facet disease involving the lower lumbar spine. Soft tissues: The visualized bowel gas pattern is normal. No suspicious soft tissue calcifications. IMPRESSION: No displaced fracture seen. If there is continued pain, followup exam or additional imaging such as MRI or CT could be performed for further assessment. Mild symmetric hip joint degeneration and degenerative change of the lower lumbar spine. Dictated by: Pascual Arellano [facility] Interpreted: Anselmo Silveira MD on 02/20/2018 at 16:03 Approved by: Anselmo Silveira M.D. on 02/21/2018 at 10:42
== END ==
PROVIDERS: Family Provider Family Medicine; PCP Family Medicine; Visit Provider Family Medicine
DX: M16.11 Unilateral primary osteoarthritis, right hip (principal); M51.36 Other intervertebral disc degeneration, lumbar region; M25.551 Pain in right hip
CPT/HCPCS: 73502

== ENCOUNTER → 2018-04-17 10:20 | Outpatient (CLI) | payer MEDICARE, SELFPAY ==
[2018-01-30 20:30] VITALS: BMI 32.1
--- NOTE | 2018-04-17 | DI.MRI.S_ITS ---
PROCEDURE: MR HEAD/BRAIN WO CON INDICATIONS: MEMORY LOSS MEMORY DECLINE TECHNIQUE: Non-contrast axial T1 spin echo, axial T2 fast spin echo, sagittal and axial FLAIR, coronal T2 fast spin echo, axial gradient echo, axial diffusion and ADC through the brain. COMPARISON: None. FINDINGS: Image quality: Excellent. CSF spaces: Ventricles appear symmetric in size and shape. Basal cisterns are patent. No extra-axial fluid collections. Brain: No intracranial bleeds or mass effects. There is moderate to prominent cerebral volume loss. There are periventricular and deep white matter chronic small vessel ischemic changes. Brainstem appears normal. Diffusion-weighted images show no acute ischemic insults. No chronic ischemic insults. Normal intravascular flow voids are present. Skull and face: Calvarial bone marrow is normal in signal. Orbits are normal. Note is made of bilateral lens replacements. Sinuses: Sinuses and mastoids are clear. IMPRESSION: Moderate to prominent brain parenchymal volume loss can be seen. Chronic small vessel ischemic changes are seen. The appearance is similar to 2016. No focal abnormality is detected. Dictated by: Alfredo Morton M.D. on 04/17/2018 at 11:01 Approved by: Alfredo Morton M.D. on 04/17/2018 at 11:03
== END ==
PROVIDERS: Family Provider Family Medicine; PCP Family Medicine; Visit Provider Family Medicine
DX: R41.3 Other amnesia (principal)
CPT/HCPCS: 70551

== ENCOUNTER → 2018-11-27 09:58 | Outpatient (CLI) | payer MEDICARE, SELFPAY ==
[2018-01-30 20:30] VITALS: BMI 32.1
--- NOTE | 2018-11-27 | DI.MG.S_ITS ---
BILATERAL DIGITAL SCREENING MAMMOGRAM 3D/2D WITH CAD POST LUMPECTOMY: 11/27/2018 CLINICAL: Routine screening. Family history of breast cancer. Personal history of breast cancer. Comparison is made to exams dated: 12/24/2016 mammogram, 12/21/2015 mammogram, and 12/17/2014 mammogram - [facility]. There are scattered fibroglandular elements in both breasts. Current study was also evaluated with a Computer Aided Detection (CAD) system. There are benign post operative findings in the left breast. There also are benign vascular calcifications in both breasts. There are mole markers on the right breast. No significant masses, calcifications, or other findings are seen in either breast. There has been no significant interval change. IMPRESSION: There is no mammographic evidence of malignancy. A 1 year screening mammogram is recommended. This exam was interpreted at Station ID: [id number]. NOTE: For mammograms, a report in lay terms will be sent to the patient. Approximately 15% of breast malignancies will not be visualized mammographically. In the management of a palpable breast mass, a negative mammogram must not discourage biopsy of a clinically suspicious lesion. Electronically Signed By: Neil carrera/araceli:11/27/2018 14:27:00 copy to: Carlin Mclean letter sent: Normal Exam ACR BI-RADS Category 2: Benign Finding(s) 3342F
== END ==
PROVIDERS: Family Provider Family Medicine; PCP Family Medicine; Visit Provider Family Medicine
DX: Z12.31 Encounter for screening mammogram for malignant neoplasm of breast (principal)
CPT/HCPCS: 77063; 77067

== ENCOUNTER → 2019-02-25 18:11 | Outpatient (CLI) | payer MEDICARE, SELFPAY ==
[2018-01-30 20:30] VITALS: BMI 32.1
== END ==
PROVIDERS: Family Provider Family Medicine; PCP Family Medicine; Visit Provider Physician Assistant
DX: N39.0 Urinary tract infection, site not specified (principal); R10.9 Unspecified abdominal pain
CPT/HCPCS: 87077; 87086; 87186

== ENCOUNTER 2020-01-15 06:33 | Emergency (ER) | payer MEDICARE, SELFPAY ==
[2018-01-30 20:30] VITALS: BMI 32.1
[2020-01-15 06:49] VITALS: BP 233/100; PULSE 80; RESP 20; TEMP 36.4; O2SAT 99
--- NOTE | 2020-01-15 07:22 | ED_ITS ---
HPI - Extremity Problem General Chief complaint: Extremity Problem,Nontraumatic Stated complaint: lack of balance,right side dragging,nausea Time Seen by Provider: 01/15/20 07:14 Source: patient Mode of arrival: Wheelchair Limitations: no limitations History of Present Illness HPI Narrative: CC: Disequilibrium, weakness, falling episodes HPI: The patient is a 79-year-old female with a history of dementia. The p atient was last known to be well at approximately 3:00 a.m. yesterday. The patient was noted to have disequilibrium with her balance being off in the patient having mole tubal episodes of falling and walking into the butler. The patient fell twice yesterday without striking her head or neck. She almost fell this morning. The patient's granddaughter notices that she has been dragging her right foot and has had weakness. The patient was able to walk with a shuffling gait with her cane for the nurse who put her in the room. The patient has a history of hypertension but has never had a stroke, myocardial and no COPD. The patient has never smoked cigarettes does not drink alcohol or use any drugs. She has had no change in her hearing loss of hearing. She has had no headache for history of migraines. There has been no change in vision double vision loss of vision or scotomata. Related Data Home Medications Medication Instructions Recorded Confirmed hydrochlorothiazide 50 mg PO QDAY #0 07/24/16 08/18/19 cholecalciferol (vitamin D3) 5,000 unit PO DAILY 01/22/18 08/18/19 [Vitamin D3] doxepin 25 mg PO BEDTIME 01/22/18 08/18/19 omeprazole 20 mg PO DAILY 01/22/18 08/18/19 sucralfate 1 g PO QID 01/22/18 08/18/19 fluticasone propionate 1 spray INTRANASAL DAILY 01/30/18 08/18/19 latanoprost 1 drp OPHTHALMIC (EYE) BEDTIME 01/30/18 08/18/19 levothyroxine 100 mcg PO DAILY 01/30/18 08/18/19 meclizine 25 mg PO Q8H PRN 01/30/18 08/18/19 mirtazapine 1 tab PO BEDTIME 01/30/18 08/18/19 ondansetron HCl 8 mg PO Q8H PRN 01/30/18 08/18/19 trazodone 100 mg PO BEDTIME PRN 01/30/18 08/18/19 Previous Rx's Medication Instructions Recorded oxycodone-acetaminophen [Percocet] See Rx Instructions .ROUTE 02/04/18 .COMPLEX PRN #20 tab meloxicam 7.5 mg tablet 7.5 mg PO DAILY #7 tab 02/24/19 Allergies Allergy/AdvReac Type Severity Reaction Status Date / Time No Known Drug Allergies Allergy Verified 08/18/19 10:47 Review of Systems Review of Systems Narrative: REVIEW OF SYSTEMS: CONSTITUTIONAL: There has been no fever chills or sweats NEUROLOGICAL: No headache or stroke numbness tingling paresthesias anesthesia is paresis or paralysis. No fall with head injury. The patient has been having weakness and dragging her right leg with disequilibrium. EENT: The patient denies any history of vertigo loss of hearing sore throat na luis manuel congestion visual changes. CARDIO-PULMONARY: She has had no chest pain cough shortness of breath difficulty in breathing ENDOCRINE: Denies being a diabetic HEMOTOLOGICAL: No bleeding problems or bruising GASTROINTESTINAL: No abdominal pain nausea vomiting diarrhea. Periodically the patient has rare nausea GENITAL URINARY: No urinary symptoms MUSCULOSKELETAL/ RHEUMATOLOGICAL: No back pain. Patient History Medical History Anxiety (Acute) Bakers cyst (Acute) Bruises easily (Acute) Fall as cause of accidental injury at home as place of occurrence (Inactive) History of UTI (Acute) Hypothyroid (Acute) Impaired vision (Acute) Pubic ramus fracture (Acute) Sebaceous cyst of skin of left breast (Acute) Spinal stenosis (Acute) Surgical History History of colonoscopy (Acute) History of esophagogastroduodenoscopy (EGD) (Acute) Status post breast lumpectomy Status post hysterectomy with oophorectomy Family History Sister Age: 77 Osteoporosis Social History household members: family Smoking Status: Never smoker alcohol intake: current Smoking Status: Never smoker alcohol intake frequency: holidays/special occasions only Substance Use Type: does not use Exam Narrative Exam Narrative: PHYSICAL EXAM: CONSTITUTIONAL: Awake, Alert, Oriented, Coherent, Cooperative in NAD. Does not appear toxic or ill. The patient wants to go home. She is alert oriented to person place and time. HEAD: AT/NC EENT: PERRL, FROM of eyes, no discharge, no nystagmus EARS:No drainage from the ears, Tympanic membranes intact bilaterally, clear EAC NOSE:No epistaxis or nasal drainage MOUTH:Oral mucosa is moist and pink, posterior pharynx is without erythema or exudate. Wearing a mask. NECK: Supple, no obvious JVD, Trachea is midline without stridor, no palpable LN. SPINE: Palpation of the cervical, Thoracic, Lumbar or Sacral spine reveals no gross deformity or tenderness. No CVA tenderness. THORAX: No deformity, retractions, chest wall tenderness. LUNGS: Clear, symmetrical breath sounds without respiratory distress. HEART: Normal heart tones, regular rhythm and rate without murmur. ABDOMEN: Soft, non-tender, without guarding, rebound, rigidity or palpable mass. EXTREMITIES: No edema, deformity, tenderness or cyanosis. SKIN: No rash, bruising, petechiae or purpura. NEURO: Awake, alert, oriented, conversive, cranial nerves II-XII are symmetrical , moves all 4 extremities and is ambulatory. Sensation is symmetrical strength is symmetrical deep tendon reflexes are 2+ NIH stroke scale is negative,0. Initial Vital Signs Initial Vital Signs: Vital Signs Temperature 97.5 F L 01/15/20 06:49 Pulse Rate 80 01/15/20 06:49 Respiratory Rate 20 01/15/20 06:49 Blood Pressure 233/100 H 01/15/20 06:49 Pulse Oximetry 99 01/15/20 06:49 Course Course Course Narrative: 0800: The patient's neurological exam is completely within normal limits. Will call and see whether not physical therapy can come down and evaluate the patient. 0809: The patient's EKG obtained on 08:0 12:31 a.m. reveals a normal sinus rh ythm with a ventricular rate of 72. QRS was 90 milliseconds. QTC was 448 milliseconds. The patient has a left axis deviation. The patient has a QS wave in lead III and AVF and V1. T-waves are inverted in V1. The patient has no other acute diagnostic ST segment changes arm. There is no signs of any injury or pattern. The patient has at a suggestion of an old inferior wall SC age indeterminate. 0830: The patient's orthostatic vital signs did not reveal any significant change in the patient's blood pressure but there was a change in heart rate greater than 10. The patient may be mildly dehydrated causing her weakness disequilibrium and falling to 1 side. She will be administered 1 L of fluid. Physical therapy has been consult did arm to evaluate the patient and her weakness falling and safety at home. 0848: The patient's laboratory chemistries are basically within normal limits with a negative urinalysis also. Her potassium was a little bit low at 3.4. She will be administered 40 mEq of potassium chloride orally. X-ray of the pelvis reveals: No trauma found. Mild symmetrical hip joint osteoarthritis. Severe degenerative disc disease and facet osteoarthritis is partially visualized along the lower half of the lumbosacral spine included on this study. Nerve root impingement would be expected. Of a follow-up MR scanning may be warranted. Chest x-ray reveals: No change from previous chest x-rays. Chronic interstitial prominence, mildly reduced inspiratory volume. Patient tilts and rotation mildly right word. CT Head reveals: Moderate microvascular atherosclerotic changes in deep white matter of each hemisphere, expected for age. No signs of mass, hemorrhage or stroke. 0927: waiting for physical therapy to evaluate the patient and her safety to go home. 1045: Physical therapy evaluated the patient and stated that her disequilibrium is related to her thinking and dementia. The patient has agreed to using a walker at home to prevent falling. Physical therapy feels that the patient would benefit from having home physical therapy. I am working on putting that order in for her. The patient will be referred to her primary care physician for follow-up. Orders Ordered: ED Orders 01/15/20 11:14 XR hand RT min 3V Stat Discontinued Medications Sodium Chloride (Normal Saline 0.9%) 1,000 mls @ 1,000 mls/hr IV BOLUS ONE Stop: 01/15/20 09:37 Last Infusion: 01/15/20 11:35 Dose: 0 mls/hr Documented by: Admin: 01/15/20 09:02 Dose: 1,000 mls/hr Documented by: EVER Potassium Chloride (Potassium Chloride) 40 meq PO NOW ONE Stop: 01/15/20 08:48 Last Admin: 01/15/20 09:03 Dose: 40 meq Documented by: EVER Vital Signs Vital signs: Vital Signs - 8 hr 01/15/20 11:30 Pulse Rate 62 Blood Pressure [Right Arm] 170/77 H Pulse Oximetry 96 MDM - Extremity (Nontraumatic) Lab Data Result diagrams: 01/15/20 08:04 01/15/20 08:04 Labs: Lab Results 01/15/20 01/15/20 01/15/20 Range/Units 08:04 08:04 08:04 WBC 10.0 (4.5-11.0) X10^3/uL RBC 4.80 (4.0-5.2) X10^6/uL Hgb 15.5 (12.0-16.0) g/dL Hct 44.1 (36-46) % MCV 92.0 (80-100) fL MCH 32.3 (26-34) PG MCHC 35.1 (30-36) % RDW 13.0 (11.6-14.8) % Plt Count 356 (150-400) X10^3/uL Neut % (Auto) 79.2 H (50-75) % Lymph % (Auto) 9.5 L (25-40) % [place] % (Auto) 9.5 (3-14) % Eos % (Auto) 1.3 L (2-4) % Baso % (Auto) 0.5 (0-2) % Neut # (Auto) 7900 H (6725-6506) /uL Lymph # (Auto) 900 L (6329-7688) /uL [place] # (Auto) 900 (0-900) /uL Eos # (Auto) 100 (0-450) /uL Baso # (Auto) 100 (0-100) /uL ESR 5 (0-20) MM/HR Sodium 129 L (137-145) mmol/L Potassium 3.2 L (3.4-5.1) mmol/L Chloride 93 L (98-107) mmol/L Carbon Dioxide 27 (22-32) mmol/L BUN 9 (7-17) mg/dL Creatinine 0.52 (0.52-1.04) mg/dL Estimated GFR > 60.0 (>60) mL/min BUN/Creatinine Ratio 17.3 (6-22) Glucose 109 (80-110) mg/dL Lactate 1.1 (0.7-2.1) mmol/L Calcium 10.2 (8.4-10.2) mg/dL Total Bilirubin 0.5 (0.2-1.3) mg/dL AST 31 (14-36) IU/L ALT 21 (<35) IU/L Alkaline Phosphatase 68 (38-126) U/L Total Protein 8.1 (6.3-8.2) g/dL Albumin 4.8 (3.5-5.0) g/dL Globulin 3.3 (1.7-4.1) g/dL Albumin/Globulin Ratio 1.5 (1.0-2.8) Urine Dip Bedside Urine Glucose Negative Bedside Urine Bilirubin - Negative Bedside Urine Ketone - Negative Urine Specific [place] 1.015 Bedside Urine Occult Blood - Negative Bedside Urine pH 8.0 Bedside Urine Protein - Negative Bedside Urine Urobilinogen - Negative Bedside Urine Nitrite - Negative Bedside Urine Leukocytes - Negative Esterase Discharge Plan Departure Patient Disposition: Home Clinical Impression: Disequilibrium, Falling episodes, Weakness Discharge Date/Time: 01/15/20 11:36 Activity Restrictions/Additional Instructions: 1. Your CT scan of your head revealed no evidence of a stroke. 2. X-ray of your pelvis reveals that you have severe arthritis involving your lower lumbar spine as well as arthritis involving both of your hips which may make you unsteady and more prone to falling.. You need to use a walker at home and when your out and about to prevent you from falling rather than [place]. 3. We will write a prescription for home physical therapy. You need to follow- up with your primary care physician to maintain home physical therapy and evaluation of your ability to ambulate without falling. 4. You were mildly dehydrated and you need to drink a total of approximately 2 L of fluid per day to maintain proper fluid balance and prevent dehydration. Dehydration can cause you to become weak dizzy lightheaded and possibly fall. 5. Continue your current medications. 6. Use the Walker you have at home for ambulation. Prescriptions: No Action meloxicam 7.5 mg tablet 7.5 mg PO DAILY Qty: 7 RF: 0 hydrochlorothiazide 50 MG tablet 50 mg PO QDAY Qty: 0 RF: 0 doxepin 25 mg Capsule 25 mg PO BEDTIME RF: 0 sucralfate 1 gram Tablet 1 g PO QID RF: 0 omeprazole 20 mg Capsule,Delayed Release(Dr/Ec) 20 mg PO DAILY RF: 0 cholecalciferol (vitamin D3) [Vitamin D3] 5,000 unit Tablet 5,000 unit PO DAILY RF: 0 oxycodone-acetaminophen [Percocet] 5-325 mg tablet See Rx Instructions .ROUTE .COMPLEX PRN (Reason: pain) Qty: 20 RF: 0 ondansetron HCl 8 mg tablet 8 mg PO Q8H PRN (Reason: Nausea) RF: 0 meclizine 25 mg Tablet 25 mg PO Q8H PRN (Reason: Dizziness) RF: 0 latanoprost 0.005 % drops 1 drp ophthalmic (eye) BEDTIME RF: 0 trazodone 50 mg tablet 100 mg PO BEDTIME PRN (Reason: Sleep) RF: 0 levothyroxine 100 mcg tablet 100 mcg PO DAILY RF: 0 mirtazapine 30 mg tablet 1 tab PO BEDTIME RF: 0 fluticasone propionate 50 mcg/actuation spray,suspension 1 spray Intranasal DAILY RF: 0 Referrals: Easton Torres MD [Primary Care Provider] -
--- NOTE | 2020-01-15 07:23 | DI.RAD.S_ITS ---
PROCEDURE: XR CHEST 1V INDICATIONS: dysequilibrium, dragging right foot, falling TECHNIQUE: One view of the chest was acquired. COMPARISON: [facility], [place]DRO, XR CHEST 1V, 02/03/2018, 10:19. [facility], LEANDRO, CHEST 1 VIEW, 01/23/2016, 13:12. FINDINGS: Surgical changes and devices: Left breast/axillary surgical clips. Lungs and pleura: Lungs are abnormal with a chronic interstitial prominence little if any changed from the comparison studies from 2015 2017 given differences in technique and patient rotation and tilt rightward.. No pleural effusions or pneumothorax. Mediastinum: Mediastinal contours appear normal. Heart size is normal. Bones and chest wall: No suspicious bony lesions. Overlying soft tissues appear unremarkable. IMPRESSION: No change foun, chronic interstitial prominence, mildly reduced inspiratory volume. Patient tilt and rotation mildly rightward. Dictated by: Camacho Brown M.D. on 01/15/2020 at 8:26 Approved by: Camacho Brown M.D. on 01/15/2020 at 8:27
--- NOTE | 2020-01-15 07:34 | DI.RAD.S_ITS ---
PROCEDURE: XR PELVIS 1-2V INDICATIONS: dysequilibrium, recent falls, right leg weakness TECHNIQUE: Single frontal view of the pelvis acquired. COMPARISON: [facility], PELVIS 1 OR 2 VIEWS, 03/18/2008, 12:30. FINDINGS: Bones: No fractures or dislocations. No suspicious bony lesions. Soft tissues: Visualized bowel gas pattern is normal. No suspicious soft tissue calcifications. IMPRESSION: No trauma found. Mild symmetric hip joint osteoarthritis. Severe degenerative disc disease and facet osteoarthritis is partially visualized along the lower half of the LS-spine included on this study. Nerve root impingement would be expected, and followup by MR scanning may be warranted. Dictated by: Camacho Brown M.D. on 01/15/2020 at 8:27 Approved by: Camacho Brown M.D. on 01/15/2020 at 8:29
--- NOTE | 2020-01-15 07:53 | DI.CT.S_ITS ---
PROCEDURE: CT HEAD/BRAIN WO CON INDICATIONS: dysequilirium, falling states dragging right foot TECHNIQUE: Noncontrast 4.5 mm thick angled axial sections acquired from the foramen magnum to the vertex, with coronal and sagittal reformats. For radiation dose reduction, the following was used: automated exposure control, adjustment of mA and/or kV according to patient size. COMPARISON: None. FINDINGS: Image quality: Excellent. CSF spaces: Basal cisterns are patent. No extra-axial fluid collections. The ventricles are symmetric in size and shape. Brain: No intracranial bleeds or masses. There is cerebral volume loss for age, with resultant ventricular and sulcal prominence. There are periventricular and deep white matter chronic small vessel ischemic changes. There is intracranial internal carotid artery atherosclerosis. Skull and face: Calvarium and visualized facial bones appear intact, without suspicious lesions. Sinuses: Visualized sinuses and mastoids are clear. IMPRESSION: Moderate microvascular atherosclerotic change in the deep white matter of each hemisphere, expected for age. No sign of mass or hemorrhage, or stroke. Dictated by: Camacho Brown M.D. on 01/15/2020 at 8:07 Approved by: Camacho Brown M.D. on 01/15/2020 at 8:09
[2020-01-15 08:17] LABS: Add Manual Diff / Slide Review NO; Basophils Absolute Auto 100 /uL (0-100); Basophils Percent Auto 0.5 % (0-2); Eosinophils Absolute Auto 100 /uL (0-450); Eosinophils Percent Auto 1.3 % (2-4); Hematocrit 44.1 % (36-46); Hemoglobin 15.5 g/dL (12.0-16.0); Lymphocytes Absolute Auto 900 /uL (1100-4500); Lymphocytes Percent Auto 9.5 % (25-40); Mean Corpuscular HGB Conc 35.1 % (30-36); Mean Corpuscular Hemoglobin 32.3 PG (26-34); Monocytes Absolute Auto 900 /uL (0-900); Monocytes Percent Auto 9.5 % (3-14); Neutrophils Absolute Auto 7900 /uL (1500-7000); Neutrophils Percent Auto 79.2 % (50-75); Platelet Count 356 X10^3/uL (150-400)
[2020-01-15 08:28] VITALS: BP 172/83; BP 177/75; PULSE 70; PULSE 84
[2020-01-15 08:33] LABS: Alanine Aminotransferase 21 IU/L (<35); Albumin 4.8 g/dL (3.5-5.0); Albumin Globulin Ratio 1.5 (1.0-2.8); Alkaline Phosphatase 68 U/L (38-126); Aspartate Aminotransferase 31 IU/L (14-36); BUN Creatinine Ratio 17.3 (6-22); Bilirubin Total 0.5 mg/dL (0.2-1.3); Blood Urea Nitrogen 9 mg/dL (7-17); Calcium 10.2 mg/dL (8.4-10.2); Carbon Dioxide 27 mmol/L (22-32); Chloride 93 mmol/L (98-107); Estimated Glomerular Filt Rate > 60.0 mL/min (>60); Globulin 3.3 g/dL (1.7-4.1); Glucose 109 mg/dL (80-110); HEMOLYSIS < 15 (0-50); Lactate (Lactic Acid) 1.1 mmol/L (0.7-2.1); Potassium 3.2 mmol/L (3.4-5.1); Sodium 129 mmol/L (137-145); Total Protein 8.1 g/dL (6.3-8.2)
[2020-01-15 08:43] LABS: Erythrocyte Sedimentation Rate 5 MM/HR (0-20)
[2020-01-15] MEDS: SODIUM CHLORIDE 0.9% 1,000 ML 1000 ML IV (09:02)
[2020-01-15] MEDS: POTASSIUM CHLORIDE 20 MEQ/15 ML UDC 40 MEQ PO (09:03)
--- NOTE | 2020-01-15 09:44 | PT.IIE ---
Surgical History (Last Reviewed 01/15/20 @ 07:33 by Thaddeus Niño MD) History of colonoscopy (Acute) History of esophagogastroduodenoscopy (EGD) (Acute) Status post breast lumpectomy Status post hysterectomy with oophorectomy Medical History (Last Reviewed 01/15/20 @ 07:33 by Thaddeus Niño MD) Anxiety (Acute) Bakers cyst (Acute) Bruises easily (Acute) Fall as cause of accidental injury at home as place of occurrence (Inactive) History of UTI (Acute) Hypothyroid (Acute) Impaired vision (Acute) Pubic ramus fracture (Acute) Sebaceous cyst of skin of left breast (Acute) Spinal stenosis (Acute) Physical Therapy Inpatient Evaluation/Re-Eval M1 PT/OT-IP Prior Functional Status Start: 01/15/20 12:22 Freq: Status: Active Protocol: Document 01/15/20 09:44 AB (Rec: 01/15/20 13:10 AB [id number]) Medical Review Prior Functional Status Medical History Reviewed Yes Communication able to make needs known Mobility and Gait pt stated that she is modified independent with all mobilities and ambulation using a quad cane. per granddaughter: pt has been falling at home Social History Household Members family Living Arrangements House Number of Floors (Floors) Two Floors Number of Stairs To Enter/Railing? 10 steps with L rail ascending to enter 7 + landing +7 steps with bilateral wide rails to get to bedroom level Home Environment Standard Height Toilet,Walk in Shower,Tub/Shower Home Equipment Front Wheel Walker,Quad Cane Additional Social History Comment pt lives with her grand daughter and grand daughter's spouse and 2 kids. grand daughter stated that her sons will be able to assist pt when she and her spouse works. M2 PT-IP Current Condition Start: 01/15/20 12:22 Freq: Status: Active Protocol: Document 01/15/20 09:44 AB (Rec: 01/15/20 13:10 AB [id number]) Physical Therapy Current Condition Current Condition Evaluation Date 01/15/20 Treatment Diagnosis s/p falls; decrease balance; difficulty in walking Onset Date 01/15/20 Precautions Other Precautions falls M3 PT-IP Subjective Start: 01/15/20 12:22 Freq: Status: Active Protocol: Document 01/15/20 09:44 AB (Rec: 01/15/20 13:10 AB [id number]) Subjective Physical Therapy Visit Type Type Initial Evaluation Visit Start Time 09:44 Visit Stop Time 10:26 Total Visit Minutes 42 Number of BUILDING PRESSURE WASHER Visits 0 Physical Therapy Visit Comments Patient Comments I want to go home Therapy Pain Assessment Pain Present Pain Present Denied Pain M4 PT-IP Mobility and Gait Start: 01/15/20 12:22 Freq: Status: Active Protocol: Document 01/15/20 09:44 AB (Rec: 01/15/20 13:10 AB [id number]) PT-Bed Mobility Assessment Supine to Sit Supine to Sit Standby Assistance Sit to Supine Sit to Supine Standby Assistance Scooting Scooting to Edge of Bed Standby Assistance Scooting Up and Down in Bed Standby Assistance PT-Transfer Assessment Sit to and From Stand Sit to and from Stand Standby Assistance Equipment Transfer Assistive Device Small Based Quad Cane Orthotic/Prosthetic Devices or Brace: No Transfers Transfer Destination Toilet Transfer Technique ambulated Transfer Ability Level of Assist Minimal Assistance,1 Person Assistance,Use of Upper Extremities Comments Mobility Comments pt completed supine to sit SBA . Pt is impulsive. completed sit to stand SBA. ambulated towards the toilet min A using SBQC. pt tends to leave cane behind and presents with very unsteady gait. Pt requires cues for safety but seems anxious, easily agitated and has decrease safety awareness. pt completed toileting SBA. ambulated to the sink min A using SBQC and was able to maintain standing SBA. pt ambulated back to her room min A using SBQC. educated pt and pt's grand daughter regarding safety. Assessed pt 's ambulation using FWW and pt completed ~ 40 ft SBA to CGA and cues to slow down for safety. informed pt and grand daughter regarding use of FWW at this time instead of her cane and pt also to have further PT intervention upon d /c: homehealth PT or outpt PT. grand daughter agreed. informed nurse. Gait Assessment Gait Gait Assistance Required: Standby Assistance,Contact Guard Assist,Minimum Assistance Distance (Feet) 40 Able to Maintain Weight Bearing Status Yes During Gait Assistive Devices Assistive Device Gait Belt,Small Based Quad Cane,Front Wheeled Walker Orthotic/Prosthetic Devices or Brace: No Gait Deviations General Gait Pattern Antalgic,Decreased Stride Length,Decreased Feet Clearance Factors Limiting Gait Function Factors Limiting Gait Function Decreased Strength,Difficulty Following Directions, Incoordination,Poor Balance, Poor Safety Awareness Comments Gait Comments pls refer to mobility section for details Stair Climbing Assessment Comments Stair Climbing Comments pt does not want to do stairs. stated that she can do it. educated on safety and how to do stairs. pt and grand daughter agreed and understood . PT-Balance Assessment Sitting Balance and Reactions Static Sitting Balance Ability Good Dynamic Sitting Balance Ability Good Standing Balance and Reactions Static Standing Balance Ability Fair Dynamic Standing Balance Ability Poor Device Used SBQC M5 PT-IP Objective Assessments Start: 01/15/20 12:22 Freq: Status: Active Protocol: Document 01/15/20 09:44 AB (Rec: 01/15/20 13:10 AB [id number]) Orientation Orientation/Cognition Level of Alertness Alert Orientation Name,Place,Situation Safety Awareness Decreased Safety Awareness Gross Range of Motion Lower Extremity ROM Assessment Within Functional Limits Strength Lower Extremity Strength Assessment Right Impaired Hip 3+/5 Knee 3+/5 Sensation Assessment Sensation Gross Sensation WNL Muscle Tone Muscle Tone WNL Yes M6 PT-IP Treatment Start: 01/15/20 12:22 Freq: Status: Active Protocol: Document 01/15/20 09:44 AB (Rec: 01/15/20 13:10 AB [id number]) Physical Therapy Treatment Education Education Provided Precautions,Safety M7 PT-IP Assessment and Plan Start: 01/15/20 12:22 Freq: Status: Active Protocol: Document 01/15/20 09:44 AB (Rec: 01/15/20 13:10 AB [id number]) PT Summary Assessment and Plan Potential Rehabilitation Potential Fair Status of Condition at Evaluation Stable Summary Impairments Pain,ROM,Strength,Balance, Coordination,Sensation,Tone, Cognition,Bed Mobility, Transfers,Gait,Activity Tolerance Assessment Summary Received PT eval to determin safe d/c plan. pt lives with her grand daughter's family and will have assist at home. Pt is impulsive and has decrease safety awareness. Pt also has dementia diagnosis. pt easily gets anxious and agitated and stated that she just wants to go home. pt with h/o falls for the passed 2 days. educated pt on safety . informed family that pt needs to use FWW instead of SBQC and granddaughter agreed. also recommending homehealth PT vs outpt PT. pt may go home with 24/7 assist at home. Goals Bed Mobility Goal Independent Transfer Goal Independent,Front Wheeled Walker Gait Goal Independent,Front Wheel Walker Gait Distance 150 Other Goals up/down 14 steps with L rail ascending Days to Meet Goals 5 Frequency of Treatment Frequency Of Treatment Once a Day Treatment Plan Physical Therapy Treatment Plan Bed Mobility Training,Transfer Training,Gait Training, Therapeutic Exercise,Balance Retraining,Discharge Planning, Hot or Cold Pack,Neuromuscular Re-ed,Coordination Retraining Recommendations To Nursing Amount of Assist Needed 1 Person Assist Discharge Recommendations PT Discharge Recommendations Home with 11/03 Assist,Home Health,Outpatient PT Transportation Needs at Discharge Private Vehicle
--- NOTE | 2020-01-15 11:14 | DI.RAD.S_ITS ---
PROCEDURE: XR HAND RT MIN 3V INDICATIONS: right hand pain with fall TECHNIQUE: 3 views of the hand(s) acquired. COMPARISON: None. FINDINGS: Bones: No fractures or dislocations. Carpal bones are normally aligned. No suspicious bony lesions. Soft tissues: No suspicious soft tissue calcifications. IMPRESSION: No trauma found. Mild degenerative osteoarthritis causing slight thinning of the joint interspaces distally. Dictated by: Camacho Brown M.D. on 01/15/2020 at 11:44 Approved by: Camacho Brown M.D. on 01/15/2020 at 11:44
[2020-01-15 11:30] VITALS: BP 170/77; PULSE 62; O2SAT 96
--- NOTE | 2020-01-15 14:35 | CM.DPNOTE ---
DCP Note This WATER AND FIRE TECHNICIAN requested to complete HH referral for this 79 yo female, presents to the ED w/ her Grand dtr, complaining of nausea, LOB, been falling at home per family. PT Hien has assessed, cleared for home w/family assist and recommends HH. Met w/Carrie and grand dtr María P# [phone], introduced role. Carrie is eager to leave the ER, but is agreeable to home health services. Grand dtr, her spouse and their 2 kids live w/Carrie. Dtr Sita Malhotra P# [phone] lives in [place] and is one of Carrie's DPOAs, according to María. Strongly encouraged Carrie and her family to fax updated DPOA ppk to [facility]. Placed call to [facility], spoke w/ Alvaro, requested RN/PT/OT/WATER AND FIRE TECHNICIAN f/u for Carrie. Faxed signed F2F, ER H+P, therapy note and WATER AND FIRE TECHNICIAN note. Connected w/Grand dtr María outside of Carrie's room who explained Carrie has mild dementia that seems to be getting worse. Carrie is exhibiting more paranoid behavior at home. María appreciative for the help from HH PT/OT/WATER AND FIRE TECHNICIAN to teach she and her family how best to assist her grandma and ideas on how to plan for the future. P: Home today, from the ER, w/family to assist and [facility] to f/u JOSEMANUEL Alonzo
== END 2020-01-15 11:36 | disposition home or self-care (01) ==
PROVIDERS: Emergency Provider Emergency Medicine; Family Provider Family Medicine; PCP Family Medicine
DX: R53.1 Weakness (principal); R42 Dizziness and giddiness; R29.6 Repeated falls; I10 Essential (primary) hypertension; E86.0 Dehydration; E87.6 Hypokalemia; M16.10 Unilateral primary osteoarthritis, unspecified hip; M47.817 Spondylosis without myelopathy or radiculopathy, lumbosacral region
CPT/HCPCS: 36415; 70450; 71045; 72170; 73130; 80053; 81003; 83605; 85025; 85651; 93005; 93010; 96360; 96361; 97161; 99284; 99285

== ENCOUNTER → 2023-04-11 15:47 | Outpatient (CLI) | payer MEDICARE, SELFPAY ==
[2018-01-30 20:30] VITALS: BMI 32.1
--- NOTE | 2023-04-11 15:53 | DI.RAD.S_ITS ---
PROCEDURE: XR KNEE RT 3V INDICATIONS: right knee pain TECHNIQUE: 3 views of the knee were acquired. COMPARISON: [facility], , KNEE 3V LEFT, 11/22/2009, 12:42. FINDINGS: Bones: No fractures or dislocations. No suspicious bony lesions. Moderate to severe narrowing of the medial femoral tibial joint and tricompartmental periarticular osteophyte formation. Soft tissues: No joint effusion. No suspicious soft tissue calcifications. Chondrocalcinosis. IMPRESSION: 1. Tricompartmental knee joint degeneration, most notably and moderate to severe involving the medial femorotibial joint. 2. Chondrocalcinosis. Differential diagnosis includes but is not limited to hemochromatosis, hyperparathyroidism and CPPD. Dictated by: Pascual Arellano [facility] Interpreted: Jonathan Flannery MD on 04/11/2023 at 16:19 Transcribed by: AMILCAR on 04/11/2023 at 16:20 Approved by: Jonathan Flannery M.D. on 04/11/2023 at 17:38
== END ==
PROVIDERS: Family Provider Family Medicine; PCP Family Medicine; Referring Provider Family Medicine; Visit Provider Family Medicine
DX: M17.11 Unilateral primary osteoarthritis, right knee (principal); M11.261 Other chondrocalcinosis, right knee
CPT/HCPCS: 73562

== ENCOUNTER → 2024-04-27 14:19 | Outpatient (CLI) | payer MEDICARE, SELFPAY ==
[2018-01-30 20:30] VITALS: BMI 32.1
--- NOTE | 2024-04-27 | DI.RAD.S_ITS ---
PROCEDURE: XR KNEE RT 3V INDICATIONS: chronic right knee pain TECHNIQUE: 3 views of the knee were acquired. COMPARISON: [facility], , XR KNEE RT 3V, 04/11/2023, 15:59. FINDINGS: Bones: No acute fracture or dislocation. Severe joint space narrowing of the medial compartment with essentially axzj-ml-yept contact and subchondral sclerotic changes. Moderate to severe joint space narrowing with involving the lateral compartment. This has progressed compared to previous radiograph of 04/11/2023. Severe narrowing of the patellofemoral joint. Chondrocalcinosis within the lateral compartment of the knee joint. Soft tissues: No joint effusion. No suspicious soft tissue calcifications. IMPRESSION: Severe tricompartmental osteoarthritis which has progressed from prior study. Dictated by: Peng Farooq M.D. on 04/28/2024 at 8:26 Approved by: Peng Farooq M.D. on 04/28/2024 at 8:28
== END ==
PROVIDERS: Family Provider Family Medicine; PCP Family Medicine; Referring Provider Family Medicine; Visit Provider Family Medicine
DX: M17.11 Unilateral primary osteoarthritis, right knee (principal); M25.561 Pain in right knee; G89.29 Other chronic pain
CPT/HCPCS: 73562

== ENCOUNTER → 2024-05-28 15:26 | Outpatient (CLI) | payer MEDICARE, SELFPAY ==
[2018-01-30 20:30] VITALS: BMI 32.1
--- NOTE | 2024-05-28 15:29 | DI.RAD.S_ITS ---
PROCEDURE: XR CHEST 2V INDICATIONS: COUGH TECHNIQUE: 2 views of the chest were acquired. COMPARISON: [facility], CR, XR CHEST 1V, 01/15/2020, 7:23. FINDINGS: Surgical changes and devices: None. Lungs and pleura: Lungs are clear. No pleural effusions or pneumothorax. Elevated right hemidiaphragm Mediastinum: Mediastinal contours are normal. Heart size is normal. Bones and chest wall: No suspicious bony abnormalities. Soft tissues appear unremarkable. IMPRESSION: No acute cardiopulmonary abnormality is seen. Approved by: Jabari Ley M.D. on 05/28/2024 at 17:29
== END ==
LOC: RAD 15:28
PROVIDERS: Family Provider Family Medicine; PCP Family Medicine; Referring Provider Family Medicine; Visit Provider Family Medicine
DX: R05.3 Chronic cough (principal)
CPT/HCPCS: 71046